=== PATIENT | male | born 1940 | race Caucasian/White ===

== ENCOUNTER 2016-10-27 10:19 | Observation (INO) | payer MEDICARE ==
[~2016-10-27] VITALS: Ht 167.6 cm; Wt 83.2 kg
[~2016-10-27 10:19] MED LIST: ASPI81TAEC PO; CLOP75TA2 PO; CYAN1000VL IM; LEVA500T PO; LISI-538 PO; METF1000 PO; PRED10TA PO; VITA100066 PO; ZOCO40TA PO
--- NOTE | 2016-10-27 11:22 | REP ---
Clinical: Trauma. Findings: Age-related atrophy and microvascular ischemic changes are appreciated. The ventricles and sulci are symmetric. Fish-white differentiation is maintained. There is no evidence for acute intracranial hemorrhage, mass/mass effect, pathology or infarction. No extra-axial fluid collection. Calvarium is intact. Paranasal sinuses and mastoid air cells are clear. Impression: Age related atrophy and microvascular ischemic changes. No acute intracranial hemorrhage, infarction, or mass/mass effect. Signed by Juno Lopez MD 10/27/2016 11:13 A
--- NOTE | 2016-10-27 11:24 | REP ---
Clinical: Trauma. Technique: Axial noncontrast images from the skull base to the thoracic inlet with coronal and sagittal re-formations. Findings: Advanced multilevel degenerative disc osteophyte complexes are noted including bridging osteophytes at the C3-4, C5-6, and to a lesser extent the C4-5 levels as well as disc space narrowing most notably involving the C5-6 level. Hypertrophic facet changes are also identified. Alignment is maintained. There is no evidence for acute fracture / compression injury or subluxation. Spinal canal, posterior elements and spinous processes appear patent and intact respectively. Paravertebral soft tissues are unremarkable. Impression: Advanced multilevel degenerative disc osteophyte complexes. No evidence for acute fracture / compression injury or subluxation. Signed by Juno Lopez MD 10/27/2016 11:15 A
[2016-10-27 12:21] LABS: BASO % 0.3 % (0.0-1.0); EOS % 0.5 % (0.0-3.0); LARGE UNSTAINED CELL # 0.2 K/mm3 (0.0-0.4); LARGE UNSTAINED CELL % 1.6 % (0.0-4.0); LYMPH # 1.2 K/mm3 (1.5-4.5); MEAN CORPUSCULAR HEMOGLOBIN 31.3 pg (27.0-33.0); MONO # 0.5 K/mm3 (0.0-0.8); MONO % 4.8 % (0.0-5.0); NEUTROPHILS # 8.5 K/mm3 (1.8-7.7); NEUTROPHILS % 81.8 % (36.0-66.0); PLATELET COUNT, AUTOMATED 348 k/mm3 (150-450); RED CELL DISTRIBUTION WIDTH 12.8 % (11.5-14.5); WHITE BLOOD COUNT 10.4 K/mm3 (4.0-10.0)
[2016-10-27 12:33] LABS: ANION GAP 6 MEQ/L (8-16); BLOOD UREA NITROGEN 19 MG/DL (7-18); CALCIUM LEVEL 9.1 MG/DL (8.8-10.2); CARBON DIOXIDE LEVEL 27 MEQ/L (21-32); CHLORIDE LEVEL 101 MEQ/L (98-107); CREATININE FOR GFR 1.31 MG/DL (0.70-1.30); FREE T4 1.03 NG/DL (0.76-1.46); GLOMERULAR FILTRATION RATE 56.3 (>42); GLUCOSE, FASTING 144 MG/DL (83-110); POTASSIUM SERUM 4.6 MEQ/L (3.5-5.1); SODIUM LEVEL 134 MEQ/L (136-145)
[2016-10-27] MEDS ORDERED: LIDOCAINE 2% W/EPIN INJ 20ML **PRES FREE As Ordered ONE (12:35)
--- NOTE | 2016-10-27 12:36 | REP ---
AP Portable sitting chest radiograph 10/27/2016 Indication: Syncope Comparison PA and lateral chest 02/06/2016 and 12/23/2015 Findings: The cardiac silhouette is of normal size. There is ectasia and tortuosity of the thoracic aorta. There is pulmonary vascular congestion. Small amount of bibasilar atelectasis is noted. Bones and soft tissues within normal limits. Impression: Normal cardiac silhouette. Tortuosity and ectasia of thoracic aorta. Pulmonary venous hypertension. Mild bibasilar atelectatic changes and/or scarring. Signed by Clemencia Whitfield MD 10/27/2016 12:28 P
[2016-10-27] MEDS ORDERED: LISI-538 PO (13:05)
[2016-10-27] MEDS ORDERED: VITA10002 PO (13:05)
[2016-10-27] MEDS ORDERED: SYST1SOL OU ×2 (13:05)
[2016-10-27] MEDS ORDERED: ONDANSETRON 4MG/2ML VIAL (J2405) IV PRN (13:15)
[2016-10-27] MEDS ORDERED: BISACODYL 5 MG TAB PO PRN (13:15)
[2016-10-27] MEDS ORDERED: GLUCOSE 4 GM CHEW TABLET PO PRN (13:30)
[2016-10-27] MEDS ORDERED: DEXTROSE 50% 50 ML SYRINGE IV PRN (13:30)
[2016-10-27] MEDS ORDERED: GLUCAGON FOR INJ 1 MG VIAL (J1610) SC PRN (13:30)
[2016-10-27] MEDS ORDERED: ACETAMINOPHEN TAB 650MG DOSE (2X325MG) PO PRN (14:45)
[2016-10-27] MEDS ORDERED: LABETALOL HCL 100 MG/20 ML VIAL As Ordered ONE (14:48)
[2016-10-27] MEDS ORDERED: amLODIPine 5 MG TAB As Ordered ONE (14:49)
[2016-10-27] MEDS ORDERED: ACETAMINOPHEN TAB 650MG DOSE (2X325MG) PO ONE (15:30)
--- NOTE | 2016-10-27 16:42 | HPE ---
DATE OF ADMISSION: 10/27/2015 PRIMARY CARE PROVIDER: KRISTI Mccartney INPATIENT HOSPITALIST ATTENDING: Dr. 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 He parked his truck in the driveway. He went to the garage and then to the front door with no answer. As he coming down the steps in the front door, in the walkway, he saw some slush and slipped, fell backwards hitting the back of his head with loss of consciousness. He does not recall how long he was unconscious. He woke up spontaneously. He had no confusion. This was an unwitnessed fall. He then got up and drove himself to the hospital. He felt severe pain at the back of the head and gushing blood. The patient had had no prior episode of falls. Denies any chest pain, pressure or tightness, palpitations, lightheadedness, fever, chills, cough, nausea, vomiting , abdominal pain, diarrhea, constipation, bright red blood per rectum, melena, upper or lower extremity weakness, changes in appetite, changes in vision, cough or cold symptoms, paroxysmal nocturnal dyspnea (PND), orthopnea, lower extremity edema prior to the fall. In the emergency room (ER), he was found to have a laceration at the back of the head which received stitches from Dr. Indio Fish emergency room physician who had seen him. CT of the head was unremarkable for any hemorrhage. CT of the cervical spine was unremarkable for acute fractures or dislocation, compression injury or subluxation. The patient's presenting blood pressure was 210/99 due to severe pain status post head trauma. Without intervention, it has subsided to 173/84. He did receive morphine in the emergency room for pain control. Hospitalist service was called for admission for observation for a syncopal episode status post head trauma. The patient's EKG was sinus rhythm. Glucose was 144 in the ER. Troponin was negative. PAST MEDICAL HISTORY: 1. Diabetes. 2. Hypercholesterolemia. 3. Hypertension. 4. Vertigo. 5. Peripheral arterial disease with right leg stents placed at [facility] in 2014. PAST SURGICAL HISTORY: Three stents placed in the right leg. ALLERGIES: No known drug allergies. 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 Former smoker of tobacco, quit 15 years ago, smoked two packs a day. No alcohol use. He lives alone. He walks unassisted. FAMILY HISTORY: Father with throat cancer at the age of 62. Mother at 78 with diabetes. PHYSICAL EXAMINATION: VITAL SIGNS: Blood pressure 173/84, pulse 92, respiratory rate 16, temperature 97.9, 96% on room air. Weight 81.6 kg, 5 feet, 6 inches tall. GENERAL: The patient is awake, alert, and oriented times three. He has a bandage around his head status post stitches to the back of the head. HEENT: Pupils are equally round and reactive to light and accommodation. Extraocular muscles are intact. Normocephalic. No sinus tenderness. No pharyngeal erythema. No cervical lymphadenopathy or thyromegaly. Moist mucous membranes. LUNGS: Clear to auscultation. No wheezing, rales, or rhonchi. Normal I:E ratio. Symmetric lungs. No kyphosis or scoliosis. HEART: S1, S2 sinus tachycardia. No murmurs, rubs, or gallops. ABDOMEN: Obese, soft, nontender, nondistended. Positive bowel sounds time four quadrants. No hepatosplenomegaly, rebound, guarding. EXTREMITIES: Skin pink, warm and dry. No pitting edema. NEUROLOGIC: Cranial nerves intact. GCS of 15. EKG: Sinus rhythm, ventricular rate of 81, CT interval 150 milliseconds, QRS of 82, QT 340, QTc 378 milliseconds. LABORATORY DATA: White count 10.4, hemoglobin 14, hematocrit 43, platelets 348, 81% neutrophils. Sodium 134, potassium 4.6, chloride 27, bicarbonate 27, BUN 19, creatinine 1.3, glucose 144, calcium 9.1, total CK 67, MB fraction 2.3, troponin less than 0.02, TSH 2.1. MICROBIOLOGY: None. IMAGING STUDIES: CT of the head shows age related atrophy, microvascular ischemic changes, no acute intracranial hemorrhage, infarct or mass, mass effect. CT of the cervical spine shows advanced multilevel degenerative disc osteophyte complexes. No evidence of acute fracture, compression injury, or subluxation. Chest x-ray on 10/27/2016 shows normal cardiac silhouette, tortuosity and ectasia of thoracic aorta, mild bibasilar atelectasis and/or scarring, pulmonary venous hypertension. 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 The patient denies any prodromal symptoms of chest pain, pressure or tightness, palpitations, lightheadedness, changes in vision, upper or lower extremity weakness prior to the episode and has had no similar episode in the past. He presents to the emergency room with a gushing wound on the back of the head requiring stitches. Hospitalist service was called for admission for acute kidney injury with a creatinine of 1.3 as well as pain control and evaluation of the patient's syncopal episode status post a fall. The patient will be admitted for observation to the hospitalist service and will be assigned to Dr. Mariusz Emery at 10:00 p.m. on 10/27/2016. Dr. Emery will assume care of this patient on 10/28/2016 at 7:00 a.m. 1. Syncopal episode secondary to mechanical fall with head trauma, with laceration to the back of the head requiring stitches provided by Dr. Indio Fish emergency room physician. The patient will be admitted to telemetry and progressive care unit (PCU) to monitor for any arrhythmias. His EKG is currently sinus rhythm without prolongation of QT interval. As part of the evaluation, he will be evaluated with an echocardiogram to rule out valvular disease or left ventricular obstruction which could cause syncopal episodes despite having no murmurs on examination. Orthostatics will be checked and his lisinopril will be held due to acute kidney injury. IV fluids will be provided at 75 mL per hour to be held for respiratory distress. Physical therapy prior to discharge. 2. Scalp laceration status post stitches by the emergency room physician. The patient will need the sutures to be removed by his primary care physician as outpatient after discharge. 3. Type 2 diabetes. Due to acute kidney injury, his metformin will be held. We will check A1c, place him on a consistent-carbohydrate diet and sliding scale with coverage. We will hold his aspirin for now due to recent head trauma and bleeding with a scalp laceration to prevent further bleeding. 4. Hypertension, uncontrolled. Lisinopril will be held due to acute kidney injury. We will provide him with Lopressor every six hours with holding parameters for systolic pressure less than 150 or diastolic less than 90. 5. Hypercholesterolemia. Continue on simvastatin. Check a fasting lipid profile in the morning. 6. Chronic vertigo. The patient has had no symptoms prior to the episode. We will obtain physical therapy consultation prior to discharge. 7. Peripheral vascular disease with history of three stents placed on the right lower extremity. He is stable. We will continue for simvastatin for now and hold off on the aspirin due to recent bleed from the scalp laceration. 8. Former smoker. Quit 15 years ago. 9. Deep vein thrombosis (DVT) prophylaxis with compression stocking. 10. Diet with consistent-carbohydrate, no-added salt. The patient will be assigned to Dr. Mariusz Emery at 10:00 p.m. on 10/27/2016. He will assume care of this patient at 7:00 a.m. on 08/28/2017, hospitalist service. VANI
[2016-10-27] MEDS ORDERED: HumaLOG INSULIN (NovoLOG) PER UNIT As Ordered ONE (17:45)
[2016-10-27 17:50] VITALS: BP 142/60
[2016-10-27] MEDS: NS 1,000 ML IV SCH (17:55)
[2016-10-27] MEDS: CYANOCOBALAMIN 500 MCG TAB PO SCH (17:55)
[2016-10-27] MEDS: METOPROLOL TART 25 MG TABLET PO SCH (17:56)
[2016-10-27] MEDS: HumaLOG INSULIN (NovoLOG) PER UNIT SC SCH ×2 (17:56→20:10)
[2016-10-27] MEDS ORDERED: ACETAMINOPHEN TAB 650MG DOSE (2X325MG) As Ordered ONE (18:09)
--- NOTE | 2016-10-27 18:10 | ECGEPIP ---
Stationary ECG Study [facility] - ED Test Date: 2016-10-27 Pat Name: CODIE SANCHEZ Department: Room: - Gender: M [employer]: : [id number] Requested By: Indio Ortiz Order Number: [id number] Reading MD: Magdalene Zuñiga Measurements Intervals [place] Rate: 81 P: 62 PA: 150 QRS: 54 QRSD: 82 T: 23 QT: 340 QTc: 397 Interpretive Statements SINUS RHYTHM NSTTW ABNORMALITY DECREASED RATE 12/23/15 Electronically Signed On 10-27-2016 18:09:38 EST by Magdalene Zuñiga
[2016-10-27 20:00] VITALS: BP 142/60
[2016-10-27 20:09] VITALS: BP 133/64
[2016-10-27] MEDS: SIMVASTATIN 40 MG TAB PO SCH (20:10)
[2016-10-27] MEDS: VITAMIN D 1,000 INTERNATIONAL UNITS TABLET PO SCH (20:10)
[2016-10-28] VITALS: BP 165/59
[2016-10-28] MEDS ORDERED: METOPROLOL TART 25 MG TABLET As Ordered ONE (00:18)
[2016-10-28] MEDS: METOPROLOL TART 25 MG TABLET PO SCH ×4 (00:39→17:51)
[2016-10-28] MEDS ORDERED: ACETAMINOPHEN TAB 650MG DOSE (2X325MG) As Ordered ONE (00:41)
[2016-10-28] MEDS: ACETAMINOPHEN TAB 650MG DOSE (2X325MG) PO PRN ×2 (00:43→13:19)
[2016-10-28 04:00] VITALS: BP 147/60
--- NOTE | 2016-10-28 04:01 | EDDOCDS ---
Nurse's Notes [facility] Name: Codie Aguirre Age: 76 yrs Sex: Male : 1940 Arrival Date: 10/27/2016 Time: 10:19 Bed Admit Hold Private MD: Matthew Muse R. Diagnosis: Syncope and collapse;Fall (on) (from) other stairs and steps;Laceration of muscle and tendon of head Presentation: 10/27 10:24 Presenting complaint: Patient states: Fell outside with LOC laceration to scalp, does mlb1 not recall falling. This patient has no additional risk factors. Mechanism of Injury: resulted from a fall. Adult Sepsis Screening: The patient does not have new or worsening altered mentation. Patient's respiratory rate is less than 22. Systolic blood pressure is greater than 100. Patient has a qSOFA score of 0- Negative Sepsis Screen. Suicide/Homicide risk assessment- the patient denies having any suicidal and/or homicidal ideations and does not present with any other emotional, behavioral or mental health complaints. Status: Patient is not a marketing services vice president or dependent. Transition of care: patient was not received from another setting of care. 10:24 Acuity: JERRADO Level 3 mlb1 10:24 Method Of Arrival: Walkin/Carried/Asstd mlb1 Triage Assessment: 10:26 General: Appears in no apparent distress, Behavior is appropriate for age, cooperative. mlb1 Pain: Denies pain. Neurological: Level of Consciousness is awake, alert, Oriented to person, place, time. Historical: - Allergies: no known allergies; - Home Meds: 1. metformin 1,000 mg Oral tab 1 tab 2 times per day 2. lisinopril 20 mg Oral tab 1 tab once daily 3. aspirin 81 mg Oral TbEC 1 tab once daily 4. simvastatin 40 mg Oral tab 1 tab once daily 5. vit B injection monthly 6. Vitamin D Oral 1000 unit daily - PMHx: Diabetes - NIDDM: controlled; Hypercholesterolemia; Hypertension; Vertigo; - PSHx: 3 stents placed in right leg; - Social history: Smoking status: Patient states former smoker of tobacco. No barriers to communication noted, The patient speaks fluent Tajik, Speaks appropriately for age. - : The pt / caregiver states he / she is not on anticoagulants. Home medication list is obtained from the patient. - Exposure Risk Screening:: None identified. Assessment: 10:55 Adult Sepsis Screening: The patient does not have new or worsening altered mentation. dsf Patient's respiratory rate is less than 22. Systolic blood pressure is greater than 100. Patient has a qSOFA score of 0- Negative Sepsis Screen. General: Appears in no apparent distress, comfortable, Behavior is appropriate for age, cooperative. Pain: Location: back of head Pain currently is 3 out of 10 on a pain scale. Quality of pain is described as aching, dull. Neurological: Level of Consciousness is awake, alert, Oriented to person, place, time, Reports no additional symptoms. Cardiovascular: Capillary refill < 3 seconds Heart tones S1 S2 present Rhythm is sinus rhythm No ectopy. Respiratory: Airway is patent Respiratory effort is even, unlabored, Respiratory pattern is regular, symmetrical, Breath sounds are clear bilaterally. GI: Abdomen is non- distended Bowel sounds present X 4 quads. Abd is soft and non tender X 4 quads. Derm: Skin is pink, warm & dry. 11:55 General: Appears in no apparent distress, Behavior is appropriate for age, cooperative. dsf Pain: Location: back of head Pain currently is 3 out of 10 on a pain scale. Neurological: Level of Consciousness is awake, alert. Cardiovascular: Capillary refill < 3 seconds Rhythm is sinus rhythm No ectopy. Respiratory: Airway is patent Respiratory effort is even, unlabored, Respiratory pattern is regular, symmetrical. Derm: Skin is pink, warm & dry. 12:34 General: Appears in no apparent distress, comfortable, Behavior is appropriate for age, dsf cooperative. Neurological: Level of Consciousness is awake, alert. Cardiovascular: Capillary refill < 3 seconds Rhythm is sinus rhythm No ectopy. Respiratory: Airway is patent Respiratory effort is even, unlabored, Respiratory pattern is regular, symmetrical. Derm: Skin is pink, warm & dry. 13:34 Adult Sepsis Screening: The patient does not have new or worsening altered mentation. dsf Patient's respiratory rate is less than 22. Systolic blood pressure is greater than 100. Patient has a qSOFA score of 0- Negative Sepsis Screen. General: Appears in no apparent distress, Behavior is appropriate for age, cooperative. Pain: Location: back of head Pain currently is 3 out of 10 on a pain scale. Neurological: Level of Consciousness is awake, alert, Oriented to person, place, time. Cardiovascular: Capillary refill < 3 seconds Rhythm is sinus rhythm No ectopy. Respiratory: Airway is patent Respiratory effort is even, unlabored, Respiratory pattern is regular, symmetrical. Derm: Skin is pink, warm & dry. 14:34 General: Appears in no apparent distress, comfortable, Behavior is appropriate for age, dsf cooperative. Pain: Location: back of head Pain currently is 3 out of 10 on a pain scale. Neurological: Level of Consciousness is awake, alert, Oriented to person, place, time. Cardiovascular: Capillary refill < 3 seconds Heart tones S1 S2 present Rhythm is sinus rhythm No ectopy. Respiratory: Airway is patent Respiratory effort is even, unlabored, Respiratory pattern is regular, symmetrical, Breath sounds are clear bilaterally. GI: Abdomen is non- distended Bowel sounds present X 4 quads. Abd is soft and non tender X 4 quads. Derm: Skin is pink, warm & dry. pressure dressing to back of head with tiffany bandage. 15:34 General: Appears in no apparent distress, Behavior is appropriate for age, cooperative. dsf Neurological: Level of Consciousness is awake, alert. Cardiovascular: Capillary refill < 3 seconds Rhythm is sinus rhythm No ectopy. Respiratory: Airway is patent Respiratory effort is even, unlabored, Respiratory pattern is regular, symmetrical. Derm: Skin is pink, warm & dry. 16:36 Adult Sepsis Screening: The patient does not have new or worsening altered mentation. dsf Patient's respiratory rate is less than 22. Systolic blood pressure is greater than 100. Patient has a qSOFA score of 0- Negative Sepsis Screen. General: Appears in no apparent distress, comfortable, Behavior is appropriate for age, cooperative. Pain: Location: back of head Pain currently is 3 out of 10 on a pain scale. Neurological: Level of Consciousness is awake, alert. Cardiovascular: Capillary refill < 3 seconds Rhythm is sinus rhythm No ectopy. Respiratory: Airway is patent Respiratory effort is even, unlabored, Respiratory pattern is regular, symmetrical. GI: Abdomen is non- distended. Derm: Skin is pink, warm & dry. Vital Signs: 10:21 BP 210 / 99; Pulse 111; Resp 16; Temp 97.9(O); Pulse Ox 96% ; Weight 81.65 kg; Height 5 cmb ft. 6 in. (167.64 cm); Pain 0/10; 10:47 BP 174 / 70 LA (man/); mlb1 10:50 BP 173 / 84 (auto/); dsf 10:53 Pulse 92 MON; Pulse Ox 96% ; dsf 10:55 Pulse 92 MON; Pulse Ox 95% ; dsf 11:05 BP 198 / 91 (auto/); dsf 11:07 Pulse 90 MON; Pulse Ox 95% ; dsf 11:18 BP 180 / 79 (auto/); dsf 11:18 Pulse 84 MON; Pulse Ox 93% ; dsf 11:20 BP 175 / 82 (auto/); dsf 11:21 Pulse 82 MON; Pulse Ox 93% ; dsf 11:35 BP 176 / 82 (auto/); dsf 11:36 Pulse 82 MON; Pulse Ox 92% ; dsf 11:50 BP 195 / 88 (auto/); dsf 11:50 Pulse 82 MON; Pulse Ox 94% ; dsf 11:59 Pulse 80 MON; dsf 11:59 BP 173 / 81 (auto/); dsf 12:00 Pulse 82 MON; dsf 12:00 BP 171 / 81 (auto/); dsf 12:00 BP 167 / 80 (auto/); dsf 12:04 Pulse 84 MON; dsf 12:05 BP 175 / 83 (auto/); dsf 12:06 BP 173 / 81 Supine; Pulse 82; dsf 12:06 BP 171 / 81 Sitting; Pulse 82; dsf 12:06 BP 167 / 80 Standing; Pulse 92; dsf 12:19 Pulse 84 MON; dsf 12:20 BP 172 / 82 (auto/); dsf 12:35 BP 171 / 79 (auto/); dsf 12:35 Pulse 88 MON; Pulse Ox 96% ; dsf 12:50 Pulse 86 MON; Pulse Ox 97% ; dsf 12:50 BP 168 / 78 (auto/); dsf 13:05 BP 156 / 67 (auto/); dsf 13:05 Pulse 82 MON; Pulse Ox 97% ; dsf 13:20 BP 182 / 106 (auto/); dsf 13:20 Pulse 86 MON; Pulse Ox 97% ; dsf 13:34 Pulse 82 MON; Pulse Ox 97% ; dsf 13:35 BP 168 / 79 (auto/); dsf 13:50 BP 163 / 77 (auto/); dsf 13:50 Pulse 80 MON; Pulse Ox 96% ; dsf 14:05 BP 172 / 78 (auto/); dsf 14:05 Pulse 88 MON; Pulse Ox 96% ; dsf 14:20 BP 169 / 84 (auto/); dsf 14:20 Pulse 84 MON; Pulse Ox 96% ; dsf 14:35 Pulse 78 MON; Pulse Ox 97% ; dsf 14:35 BP 169 / 77 (auto/); Resp 20; Temp 97.6(TE); Pain 3/10; dsf 14:46 BP 172 / 83 (auto/); dsf 14:46 Pulse 78 MON; Pulse Ox 96% ; dsf 14:50 BP 168 / 75 (auto/); dsf 14:50 Pulse 76 MON; Pulse Ox 96% ; dsf 15:05 BP 159 / 79 (auto/); dsf 15:05 Pulse 74 MON; Pulse Ox 94% ; dsf 15:20 BP 144 / 72 (auto/); dsf 15:20 Pulse 74 MON; Pulse Ox 94% ; dsf 15:35 BP 143 / 67 (auto/); dsf 15:35 Pulse 74 MON; Pulse Ox 96% ; dsf 15:50 Pulse 74 MON; Pulse Ox 95% ; mcp 15:50 BP 152 / 76 (auto/); mcp 16:05 BP 162 / 78 (auto/); mcp 16:05 Pulse 76 MON; Pulse Ox 96% ; mcp 16:20 BP 146 / 67 (auto/); mcp 16:20 Pulse 74 MON; Pulse Ox 96% ; mcp 16:35 BP 132 / 66 (auto/); mcp 16:35 Pulse 72 MON; Pulse Ox 96% ; mcp 16:50 BP 140 / 68 (auto/); mcp 16:50 Pulse 68 MON; Pulse Ox 95% ; mcp 17:05 BP 135 / 65 (auto/); mcp 17:05 Pulse 70 MON; Pulse Ox 96% ; mcp 17:20 BP 138 / 68 (auto/); mcp 17:20 Pulse 72 MON; Pulse Ox 95% ; mcp 10:21 Body Mass Index 29.05 (81.65 kg, 167.64 cm) cmb Vitals: 10:21 Log In Time: October 27, 2016 at 10:19. cmb Fernandez Coma Score: 10:24 Eye Response: spontaneous(4). Verbal Response: oriented(5). Motor Response: obeys mlb1 commands(6). Total: 15. ED Course: 10:21 Patient visited by Stacie Morgan. cmb 10:21 Matthew Muse is Private Physician. cmb 10:21 Patient moved to Waiting cmb 10:23 Patient moved to Pre RCE cmb 10:24 Patient visited by Chriss Bardales, VIKI. mlb1 10:25 Triage Initiated mlb1 10:27 Patient visited by Chriss Bardales RN. mlb1 10:29 Patient moved to Triage 2 mlb1 10:47 Patient moved to 10 mlb1 10:57 Patient visited by Caitlyn Abbott RN. dsf 10:57 The patient / caregiver is instructed regarding the plan of care and ED course. Patient dsf has correct armband on for positive identification. Placed in gown. Bed in low position. Call light in reach. Side rails up X2. monitoring engineer on. Pulse ox on. NIBP on. 10:[address] dsf 11:18 Patient name changed from Codie\S\\S\Aguirre\S\ to Codie\S\ \S\Aguirre. EDMS 11:19 [facility] [place] was scanned into [employer] and attached to record. lg 11:24 Patient moved to 10 dsf 11:25 CT Head Without Contrast Returned. EDMS 11:25 CT Spine,Cervical W/o Contrast Returned. EDMS 11:32 Patient visited by Rosa Maria Barrett PCA. jlf 11:39 Indio Ortiz MD is Attending Physician. ml 11:39 Patient visited by Indio Ortiz MD. ml 12:03 Patient visited by Rosa Maria Barrett PCA. jlf 12:03 Patient visited by Rosa Maria Barrett PCA. jlf 12:03 EKG done. (by ED staff). Reviewed by Indio Ortiz MD. jlf 12:04 TSH with Free T4 Sent. dsf 12:04 Troponin Sent. dsf 12:04 CIP Sent. dsf 12:04 MED Profile Sent. dsf 12:04 CBC with Diff Sent. dsf 12:04 Inserted saline lock: 20 gauge in right antecubital area The patient tolerated the dsf procedure well. 12:07 Patient visited by Caitlyn Abbott RN. dsf 12:34 Patient visited by Caitlyn Abbott RN. dsf 12:52 Zhanna Burnette is Hospitalizing Provider. ml 13:15 Chest, 1 View Returned. EDMS 15:38 Written Provider Order was scanned into [employer] and attached to record. lbd 15:51 Patient visited by Caitlyn Abbott RN. dsf 16:37 Patient visited by Caitlyn Abbott RN. dsf 17:17 Patient moved to Admit Hold mcp 17:32 Patient moved to 19 dsf 19:00 Patient moved to Admit Hold ml3 19:13 EKG-ADULT Returned. EDMS Administered Medications: 12:43 Drug: Lidocaine-Epinephrine 2 %-1:100,000 10 ml {Note: administered by Dr. Fish .} dsf Route: Infiltration; 14:54 Drug: amLODIPine 10 mg [amlodipine 5 mg tablet (2 tabs)] Route: PO; dsf 14:54 Drug: Labetalol 10 mg [labetalol 5 mg/mL intravenous solution (2 mL)] Route: IVP; Rate: dsf bolus; Infused Over: 2 mins; Site: right antecubital; Order Results: Lab Order: CBC with Diff; SPEC'M 10/27/16 11:58 Test: WHITE BLOOD COUNT; Value: 10.4; Range: 4.0-10.0; Abnormal: Above high normal; Units: K/mm3; Status: F Test: RED BLOOD COUNT; Value: 4.72; Range: 4.30-6.10; Units: M/mm3; Status: F Test: HEMOGLOBIN; Value: 14.8; Range: 14.0-18.0; Units: g/dl; Status: F Test: HEMATOCRIT; Value: 43.4; Range: 42.0-52.0; Units: %; Status: F Test: MEAN CORPUSCULAR VOLUME; Value: 92.0; Range: 80.0-96.0; Units: fl; Status: F Test: MEAN CORPUSCULAR HEMOGLOBIN; Value: 31.3; Range: 27.0-33.0; Units: pg; Status: F Test: MEAN CORPUSCULAR HGB CONC; Value: 34.0; Range: 32.0-36.5; Units: g/dl; Status: F Test: RED CELL DISTRIBUTION WIDTH; Value: 12.8; Range: 11.5-14.5; Units: %; Status: F Test: PLATELET COUNT, AUTOMATED; Value: 348; Range: 150-450; Units: k/mm3; Status: F Test: NEUTROPHILS %; Value: 81.8; Range: 36.0-66.0; Abnormal: Above high normal; Units: %; Status: F Test: LYMPH %; Value: 11.0; Range: 24.0-44.0; Abnormal: Below low normal; Units: %; Status: F Test: MONO %; Value: 4.8; Range: 0.0-5.0; Units: %; Status: F Test: EOS %; Value: 0.5; Range: 0.0-3.0; Units: %; Status: F Test: BASO %; Value: 0.3; Range: 0.0-1.0; Units: %; Status: F Test: LARGE UNSTAINED CELL %; Value: 1.6; Range: 0.0-4.0; Units: %; Status: F Test: NEUTROPHILS #; Value: 8.5; Range: 1.8-7.7; Abnormal: Above high normal; Units: K/mm3; Status: F Test: LYMPH #; Value: 1.2; Range: 1.5-4.5; Abnormal: Below low normal; Units: K/mm3; Status: F Test: MONO #; Value: 0.5; Range: 0.0-0.8; Units: K/mm3; Status: F Test: EOS #; Value: 0.0; Range: 0.0-0.50; Units: K/mm3; Status: F Test: BASO #; Value: 0.0; Range: 0.0-0.2; Units: K/mm3; Status: F Test: LARGE UNSTAINED CELL #; Value: 0.2; Range: 0.0-0.4; Units: K/mm3; Status: F Lab Order: MED Profile; SPEC'M 10/27/16 11:58 Test: GLUCOSE, FASTING; Value: 144; Range: 83-110; Abnormal: Above high normal; Units: MG/DL; Status: F Test: BLOOD UREA NITROGEN; Value: 19; Range: 7-18; Abnormal: Above high normal; Units: MG/DL; Status: F Test: CREATININE FOR GFR; Value: 1.31; Range: 0.70-1.30; Abnormal: Above high normal; Units: MG/DL; Status: F Test: GLOMERULAR FILTRATION RATE; Value: 56.3; Range: >42; Status: F Test: SODIUM LEVEL; Value: 134; Range: 136-145; Abnormal: Below low normal; Units: MEQ/L; Status: F Test: POTASSIUM SERUM; Value: 4.6; Range: 3.5-5.1; Units: MEQ/L; Status: F Test: CHLORIDE LEVEL; Value: 101; Range: 98-107; Units: MEQ/L; Status: F Test: CARBON DIOXIDE LEVEL; Value: 27; Range: 21-32; Units: MEQ/L; Status: F Test: ANION GAP; Value: 6; Range: 8-16; Abnormal: Below low normal; Units: MEQ/L; Status: F Test: CALCIUM LEVEL; Value: 9.1; Range: 8.8-10.2; Units: MG/DL; Status: F Test Note: ; Units are mL/min/1.73 m2 Chronic Kidney Disease Staging per NKF: Stage I & II GFR >=60 Normal to Mildly Decreased Stage III GFR 30-59 Moderately Decreased Stage IV GFR 15-29 Severely Decreased Stage V GFR <15 Very Little GFR Left ESRD GFR <15 on OLIVE PACKER Lab Order: CIP; SPEC'10/27/16 11:58 Test: CPK CREATINE PHOSPHOKINASE; Value: 67; Range: 39-308; Units: U/L; Status: F Test: CK-MB VALUE MASS; Value: 2.3; Range: 0.0-3.6; Units: NG/ML; Status: F Test: MB/CK RELATIVE INDEX; Value: 3.43; Range: < OR =4; Status: F Test Note: ; DIAGNOSIS CRITERIA MMB ng/ml Relative Index (RI) NON-AMI < or = 5 N/A FISH ZONE > 5 < or = 4 AMI > 5 > 4 Lab Order: Troponin; SPEC'M 10/27/16 11:58 Test: TROPONIN I; Value: < 0.02; Range: < 0.10; Units: NG/ML; Status: F Test Note: ; Troponin I Reference Interval for [employer] [place] LOCI: 99th Percentile= 0.00-0.045 ng/ml Risk Stratification: <= 0.10 ng/ml Decreased Risk for Adverse Clinical Events. 0.10-1.50 ng/ml Increased Risk for Adverse Clinical Events. Evaluation of additional criterion and/or repeat testing in 2-6 hours is suggested to rule out myocardial damage. >= 1.50 ng/ml Indicative of Myocardial Injury. Lab Order: TSH with Free T4; SPEC'M 10/27/16 11:58 Test: THYROID STIMULATING HORMONE; Value: 2.100; Range: 0.358-3.740; Units: uIU/ML; Status: F Test: FREE T4; Value: 1.03; Range: 0.76-1.46; Units: NG/DL; Status: F Lab Order: URINALYSIS; SPEC'M 10/27/16 22:26 Test: APPEARANCE, URINE; Value: CLEAR; Range: CLEAR; Status: F Test: COLOR, URINE; Value: STRAW; Range: YELLOW; Status: F Test: PH,URINE; Value: 6.0; Range: 5.0-9.0; Units: UNITS; Status: F Test: SPECIFIC GRAVITY URINE AUTO; Value: 1.008; Range: 1.002-1.035; Status: F Test: PROTEIN, URINE AUTO; Value: NEGATIVE; Range: NEGATIVE; Units: mg/dL; Status: F Test: GLUCOSE, URINE (UA) AUTO; Value: 2+; Range: NEGATIVE; Abnormal: Above high normal; Units: mg/dL; Status: F Test: KETONE, URINE AUTO; Value: NEGATIVE; Range: NEGATIVE; Units: mg/dL; Status: F Test: UROBILINOGEN, URINE AUTO; Value: 0.2; Range: 0.0-2.0; Units: mg/dL; Status: F Test: BILIRUBIN, URINE AUTO; Value: NEGATIVE; Range: NEGATIVE; Status: F Test: NITRITE, URINE AUTO; Value: NEGATIVE; Range: NEGATIVE; Status: F Test: LEUKOCYTE ESTERASE, URINE AUTO; Value: 1+; Range: NEGATIVE; Abnormal: Above high normal; Status: F Test: BLOOD, URINE BLOOD; Value: NEGATIVE; Range: NEGATIVE; Status: F Test: WBC, URINE AUTO; Value: 3; Range: 0-3; Units: /HPF; Status: F Test: RBC, URINE AUTO; Value: 2; Range: 0-3; Units: /HPF; Status: F Test: BACTERIA, URINE AUTO; Value: NEGATIVE; Range: NEGATIVE; Status: F Test: SQUAMOUS EPITHELIAL CELL UR AU; Value: 0; Range: 0-6; Units: /HPF; Status: F Test: MUCUS, URINE; Value: SMALL; Range: NEGATIVE; Status: F Test: HYALINE CAST, URINE AUTO; Value: 0; Range: 0-1; Units: /LPF; Status: F Radiology Order: CT Head Without Contrast Test: CT Head Without Contrast REASON FOR EXAMINATION: Trauma; Clinical: Trauma.; ; Findings:; Age-related atrophy and microvascular ischemic changes are appreciated. The; ventricles and sulci are symmetric. Fish-white differentiation is maintained.; There is no evidence for acute intracranial hemorrhage, mass/mass effect,; pathology or infarction. No extra-axial fluid collection. Calvarium is intact.; Paranasal sinuses and mastoid air cells are clear.; ; Impression:; Age related atrophy and microvascular ischemic changes.; No acute intracranial hemorrhage, infarction, or mass/mass effect.; ; ; Signed by; Juno Lopez MD 10/27/2016 11:13 A; Radiology Order: CT Spine,Cervical W/o Contrast Test: CT Spine,Cervical W/o Contrast REASON FOR EXAMINATION: Trauma; Clinical: Trauma.; ; Technique: Axial noncontrast images from the skull base to the thoracic inlet; with coronal and sagittal re-formations.; ; Findings:; Advanced multilevel degenerative disc osteophyte complexes are noted including; bridging osteophytes at the C3-4, C5-6, and to a lesser extent the C4-5 levels as; well as disc space narrowing most notably involving the C5-6 level. Hypertrophic; facet changes are also identified. Alignment is maintained. There is no; evidence for acute fracture / compression injury or subluxation. 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 Consultant: uday; : 1940 Requested By: Indio Ortiz; Order Number: [id number] Reading MD: Magdalene Zuñiga; Measurements; Intervals Arnold; Rate: 81 P: 62; WA: 150 QRS: 54; QRSD: 82 T: 23; QT: 340; QTc: 397; Interpretive Statements; SINUS RHYTHM; NSTTW ABNORMALITY; DECREASED RATE 12/23/15; Electronically Signed On 10-27-2016 18:09:38 EST by Magdalene Zuñiga; Radiology Order: Chest, 1 View Test: Chest, 1 View REASON FOR EXAMINATION: Syncope; AP Portable sitting chest radiograph 10/27/2016; ; Indication: Syncope; ; Comparison PA and lateral chest 02/06/2016 and 12/23/2015; ; Findings: The cardiac silhouette is of normal size. There is ectasia and; tortuosity of the thoracic aorta. There is pulmonary vascular congestion. Small; amount of bibasilar atelectasis is noted.; ; Bones and soft tissues within normal limits.; ; Impression:; ; Normal cardiac silhouette. Tortuosity and ectasia of thoracic aorta.; ; Pulmonary venous hypertension. Mild bibasilar atelectatic changes and/or; scarring.; ; ; Signed by; Clemencia Whitfield MD 10/27/2016 12:28 P; Outcome: 12:53 Decision to Hospitalize by Provider. 10/28 03:59 Patient left the ED. cz Signatures: Dispatcher [employer] EDMS Indio Ortiz MD MD ml Daly, Linda, Ager Operator Unit Cinthia Arambula, RN Evaristo Saeed mcp, RN RN cz Ganter, LoriLee, Reg Reg lg Barney, Michael B RN RN mlb1 Heather Bell, Ager Operator Unit ml3 Caitlyn AbbottRN RN Stacie Hdz Jordain, PCA [facility] MTD[facility]
--- NOTE | 2016-10-28 04:01 | EDDOCDS ---
Physician Documentation [facility] Name: Brian Aguirre Age: 76 yrs Sex: Male : 1940 Arrival Date: 10/27/2016 Time: 10:19 Bed Admit Hold Private MD: Matthew Muse R. Disposition: 10/27 12:53 Critical Care:. ml Disposition: 10/27/16 12:53 Hospitalization ordered by Zhanna Burnette for Inpatient Admission. Preliminary diagnosis are Syncope and collapse, Fall (on) (from) other stairs and steps, Laceration of muscle and tendon of head. - Bed requested for PCU. - Status is Inpatient Admission. cz - Condition is Stable. - Problem is new. - Symptoms are unchanged. Historical: - Allergies: no known allergies; - Home Meds: 1. metformin 1,000 mg Oral tab 1 tab 2 times per day 2. lisinopril 20 mg Oral tab 1 tab once daily 3. aspirin 81 mg Oral TbEC 1 tab once daily 4. simvastatin 40 mg Oral tab 1 tab once daily 5. vit B injection monthly 6. Vitamin D Oral 1000 unit daily - PMHx: Diabetes - NIDDM: controlled; Hypercholesterolemia; Hypertension; Vertigo; - PSHx: 3 stents placed in right leg; - Social history: Smoking status: Patient states former smoker of tobacco. No barriers to communication noted, The patient speaks fluent Telugu, Speaks appropriately for age. - : The pt / caregiver states he / she is not on anticoagulants. Home medication list is obtained from the patient. - Exposure Risk Screening:: None identified. Vital Signs: 10:21 BP 210 / 99; Pulse 111; Resp 16; Temp 97.9(O); Pulse Ox 96% ; Weight 81.65 kg / 180.01 cmb lbs; Height 5 ft. 6 in. (167.64 cm); Pain 0/10; 10:47 BP 174 / 70 LA (man/); mlb1 10:50 BP 173 / 84 (auto/); dsf 10:53 Pulse 92 MON; Pulse Ox 96% ; dsf 10:55 Pulse 92 MON; Pulse Ox 95% ; dsf 11:05 BP 198 / 91 (auto/); dsf 11:07 Pulse 90 MON; Pulse Ox 95% ; dsf 11:18 BP 180 / 79 (auto/); dsf 11:18 Pulse 84 MON; Pulse Ox 93% ; dsf 11:20 BP 175 / 82 (auto/); dsf 11:21 Pulse 82 MON; Pulse Ox 93% ; dsf 11:35 BP 176 / 82 (auto/); dsf 11:36 Pulse 82 MON; Pulse Ox 92% ; dsf 11:50 BP 195 / 88 (auto/); dsf 11:50 Pulse 82 MON; Pulse Ox 94% ; dsf 11:59 Pulse 80 MON; dsf 11:59 BP 173 / 81 (auto/); dsf 12:00 Pulse 82 MON; dsf 12:00 BP 171 / 81 (auto/); dsf 12:00 BP 167 / 80 (auto/); dsf 12:04 Pulse 84 MON; dsf 12:05 BP 175 / 83 (auto/); dsf 12:06 BP 173 / 81 Supine; Pulse 82; dsf 12:06 BP 171 / 81 Sitting; Pulse 82; dsf 12:06 BP 167 / 80 Standing; Pulse 92; dsf 12:19 Pulse 84 MON; dsf 12:20 BP 172 / 82 (auto/); dsf 12:35 BP 171 / 79 (auto/); dsf 12:35 Pulse 88 MON; Pulse Ox 96% ; dsf 12:50 Pulse 86 MON; Pulse Ox 97% ; dsf 12:50 BP 168 / 78 (auto/); dsf 13:05 BP 156 / 67 (auto/); dsf 13:05 Pulse 82 MON; Pulse Ox 97% ; dsf 13:20 BP 182 / 106 (auto/); dsf 13:20 Pulse 86 MON; Pulse Ox 97% ; dsf 13:34 Pulse 82 MON; Pulse Ox 97% ; dsf 13:35 BP 168 / 79 (auto/); dsf 13:50 BP 163 / 77 (auto/); dsf 13:50 Pulse 80 MON; Pulse Ox 96% ; dsf 14:05 BP 172 / 78 (auto/); dsf 14:05 Pulse 88 MON; Pulse Ox 96% ; dsf 14:20 BP 169 / 84 (auto/); dsf 14:20 Pulse 84 MON; Pulse Ox 96% ; dsf 14:35 Pulse 78 MON; Pulse Ox 97% ; dsf 14:35 BP 169 / 77 (auto/); Resp 20; Temp 97.6(TE); Pain 3/10; dsf 14:46 BP 172 / 83 (auto/); dsf 14:46 Pulse 78 MON; Pulse Ox 96% ; dsf 14:50 BP 168 / 75 (auto/); dsf 14:50 Pulse 76 MON; Pulse Ox 96% ; dsf 15:05 BP 159 / 79 (auto/); dsf 15:05 Pulse 74 MON; Pulse Ox 94% ; dsf 15:20 BP 144 / 72 (auto/); dsf 15:20 Pulse 74 MON; Pulse Ox 94% ; dsf 15:35 BP 143 / 67 (auto/); dsf 15:35 Pulse 74 MON; Pulse Ox 96% ; dsf 15:50 Pulse 74 MON; Pulse Ox 95% ; mcp 15:50 BP 152 / 76 (auto/); mcp 16:05 BP 162 / 78 (auto/); mcp 16:05 Pulse 76 MON; Pulse Ox 96% ; mcp 16:20 BP 146 / 67 (auto/); mcp 16:20 Pulse 74 MON; Pulse Ox 96% ; mcp 16:35 BP 132 / 66 (auto/); mcp 16:35 Pulse 72 MON; Pulse Ox 96% ; mcp 16:50 BP 140 / 68 (auto/); mcp 16:50 Pulse 68 MON; Pulse Ox 95% ; mcp 17:05 BP 135 / 65 (auto/); mcp 17:05 Pulse 70 MON; Pulse Ox 96% ; mcp 17:20 BP 138 / 68 (auto/); mcp 17:20 Pulse 72 MON; Pulse Ox 95% ; mcp 10:21 Body Mass Index 29.05 (81.65 kg, 167.64 cm) cmb Fernandez Coma Score: 10:24 Eye Response: spontaneous(4). Verbal Response: oriented(5). Motor Response: obeys mlb1 commands(6). Total: 15. Procedures: 12:53 Laceration repair:. ml Laceration: 12:53 Wound Repair of 3cm ( 1.2in ) full thickness laceration to left parietal area. Linear ml shaped.. Minimal bleeding noted.. Distal neuro/vascular/tendon intact. Anesthesia: Local anesthetic administered with 3 mls of 1% lidocaine w/ Epi, 3 mls of 1% lidocaine w/ Epi. Wound prep: Moderate cleansing with hibiclenz by provider, Wound explored. Skin closed with 3 thin layer Harrison using Running sutures. Dressed with pressure dressing. Patient tolerated well. MDM: 10:54 CT Head Without Contrast Ordered. EDMS 10:54 CT Spine,Cervical W/o Contrast Ordered. EDMS 11:19 [facility] Payment Agreement was scanned into fotobabble and attached to record. lg 11:40 Financial registration complete. lg 11:48 IV Saline Lock ordered. ml 11:48 Link Trainer Operator/Pulse Ox/q 15 min VS ordered. ml 11:48 Rhythm Strip to chart ordered. ml 11:48 Undress patient appropriately for examination ordered. ml 11:48 Orthostatic VS ordered. ml 11:48 Misc. Nursing Order ordered. ml 11:50 CBC with Diff Ordered. EDMS 11:50 MED Profile Ordered. EDMS 11:50 CIP Ordered. EDMS 11:50 Troponin Ordered. EDMS 11:50 TSH with Free T4 Ordered. EDMS 11:50 Chest, 1 View Ordered. EDMS 11:50 ECG WITH READING ER PHYS+CARDIAG ordered. EDMS 12:43 Lidocaine-Epinephrine 2 %-1:100,000 10 ml Infiltration once; to bedside ordered. dsf 12:43 CBC with Diff Reviewed. ml 12:43 MED Profile Reviewed. ml 12:43 CIP Reviewed. ml 12:43 Troponin Reviewed. ml 12:43 TSH with Free T4 Reviewed. ml 12:43 CT Head Without Contrast Reviewed. ml 12:43 CT Spine,Cervical W/o Contrast Reviewed. ml 12:49 BED REQUEST+ADM ordered. EDMS 13:18 PHYSICAL THERAPY EVAL & TREAT ordered. EDMS 13:19 Admission / Observation Status ordered. EDMS 13:19 ECHOCARD,DOPPLER/COLOR FLOW ordered. EDMS 13:19 ELECTROCARDIOGRAM ADULT ordered. EDMS 13:19 CONSISTENT CARBOHYDRATES ordered. EDMS 14:55 amLODIPine 10 mg PO once; ADMISSION ORDER ordered. dsf 14:55 Labetalol 10 mg IVP at bolus once over 2 mins; ADMISSION ORDER ordered. dsf 15:38 Written Provider Order was scanned into fotobabble and attached to record. lbd 17:43 Fingerstick Blood Sugar Ordered. EDMS 22:17 URINALYSIS Ordered. EDMS Administered Medications: 12:43 Drug: Lidocaine-Epinephrine 2 %-1:100,000 10 ml {Note: administered by Dr. Fish .} dsf Route: Infiltration; 14:54 Drug: amLODIPine 10 mg [amlodipine 5 mg tablet (2 tabs)] Route: PO; dsf 14:54 Drug: Labetalol 10 mg [labetalol 5 mg/mL intravenous solution (2 mL)] Route: IVP; Rate: dsf bolus; Infused Over: 2 mins; Site: right antecubital; Critical Care Time: 12:53 Critical care time: Bedside Care: 90 minutes, Consultation: 10 minutes. Total time: 100 ml minutes Signatures: Dispatcher [employer] EDMS Indio Ortiz MD MD ml Skylar Gonzalez, Decorator Consultant Unit lbd Evaristo Villanueva, RN RN cz Saundra Peña, Damien Reg lg Chriss Bardales RN RN mlb1 Heather Bell, Decorator Consultant Unit ml3 Caitlyn Abbott RN RN dsf The chart was reviewed and I authenticate all verbal orders and agree with the evaluation and treatment provided.Corrections: (The following items were deleted from the chart) 21:24 13:18 URINALYSIS ordered. EDMA EDMS Attachments: 11:19 [facility] Payment Agreement lg 15:38 Written Provider Order lbd MTDD
[2016-10-28] MEDS: NS 1,000 ML IV SCH (05:29)
[2016-10-28 07:38] LABS: MEAN CORPUSCULAR HEMOGLOBIN 30.9 pg (27.0-33.0); MEAN CORPUSCULAR HGB CONC 33.8 g/dl (32.0-36.5); MEAN CORPUSCULAR VOLUME 91.4 fl (80.0-96.0); RED CELL DISTRIBUTION WIDTH 13.6 % (11.5-14.5); WHITE BLOOD COUNT 8.9 K/mm3 (4.0-10.0)
[2016-10-28 07:48] LABS: ANION GAP 8 MEQ/L (8-16); BLOOD UREA NITROGEN 15 MG/DL (7-18); CALCIUM LEVEL 8.5 MG/DL (8.8-10.2); CARBON DIOXIDE LEVEL 25 MEQ/L (21-32); CHLORIDE LEVEL 104 MEQ/L (98-107); CREATININE FOR GFR 1.19 MG/DL (0.70-1.30); GLOMERULAR FILTRATION RATE > 60.0 (>42); GLUCOSE, FASTING 141 MG/DL (83-110); POTASSIUM SERUM 4.6 MEQ/L (3.5-5.1); SODIUM LEVEL 137 MEQ/L (136-145)
[2016-10-28 08:00] VITALS: BP 144/64
--- NOTE | 2016-10-28 08:03 | ECGEPIP ---
Stationary ECG Study 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
[2016-10-28] MEDS: CYANOCOBALAMIN 500 MCG TAB PO SCH (08:13)
[2016-10-28] MEDS: HumaLOG INSULIN (NovoLOG) PER UNIT SC SCH ×4 (08:13→20:11)
[2016-10-28 12:00] VITALS: BP 147/67
--- NOTE | 2016-10-28 14:09 | IPNPDOC ---
Assessment/Plan Date Seen The patient was seen on 10/28/16. Plan / VTE VTE Prophylaxis Ordered?: Yes Plan Plan Text 1. S/P mechanical fall with head trauma, with Syncope Laceration to the back of the head s/p stitches in the ER CT Head negative for acute changes, bleeding EKG noted to be in sinus rhythm without prolongation of QT interval. ECHO pending Physical therapy eval pending Likely D/C in 24 hrs if the patient remains medically stable 2. Scalp laceration S/P stitches by the emergency room physician. F/U with PCP for removal of sutures 3. Type 2 diabetes. Cont on ISS 4. Hypertension, controlled 5. Hypercholesterolemia. Cont on Statin 6. Chronic vertigo. No active symptoms of dizziness, lightheadedness 7. PVD with history of three stents placed in the RLE Cont Current Mgmt Subjective Review of Systems CC/HPI The patient is a 76-year-old male admitted with a reason for visit of Syncope And Collapse. General: Denies: Chills, Night Sweats Constitutional: Denies: Chills, Fever Eyes: Denies: Pain, Vision change ENT: Denies: Ear Pain, Head Aches Skin: Denies: Lesions, Rash Pulmonary: Denies: Cough, Dyspnea Cardiovascular: Denies: Chest Pain, Palpitations Gastrointestinal: Denies: Nausea, Vomiting Hematologic: Denies: Bleeding Excessively, Bruising Neurological: Denies: Numbness, Weakness Objective Physical Examination General Exam: Positive: Alert, Cooperative, No Acute Distress ENT Exam: Positive: Atraumatic, Mucous membr. moist/pink Chest Exam: Positive: Clear to auscultation, Normal air movement Heart Exam: Positive: Normal S1, Normal S2, Rate Normal Telemetry: Positive: Sinus Abdomen Exam: Positive: Soft, Negative: Hepatospenomegaly, Tenderness Extremity Exam: Negative: Swelling, Tenderness Vital Signs/I&O Vital Signs Date Time Temp Pulse Resp B/P Pulse Ox O2 Delivery O2 Flow Rate FiO2 10/28/16 13:18 84 10/28/16 08:00 96.8 18 144/64 96 Room Air I&O- Last 24 Hours up to 6 AM 10/28/16 06:00 Intake Total 1320 ml Output Total 1400 ml Balance -80 ml Laboratory Data Labs 24H Laboratory Tests 2 10/27/16 17:33: Bedside Glucose (Misc Panel) 123H 10/27/16 20:07: Bedside Glucose (Misc Panel) 219H 10/27/16 22:26: Urine Amorphous Sediment , Urine Appearance CLEAR, Urine Color STRAW, Urine pH 6.0, Urine Specific [place] 1.008, Urine Protein NEGATIVE, Urine Glucose (UA) 2+ H, Urine Ketones NEGATIVE, Urine Urobilinogen 0.2, Urine Bilirubin NEGATIVE, Urine Leukocyte Esterase 1+H, Urine Bacteria (Auto) NEGATIVE, Urine Blood NEGATIVE, Urine Calcium Carbonate Cryst(Auto) , Urine Calcium Oxalate Cryst ( Auto) , Urine Calcium Phosphate [place] (Auto) , Urine Cellular Casts , Urine Cystine Crystals , Urine Granular Casts (Auto) , Urine Hyaline Casts (Auto) 0, Urine Leucine Crystals , Urine Mucus (Auto) SMALL, Urine Nitrite NEGATIVE, Urine Oval Fat Bodies (Auto) , Urine RBC (Auto) 2, Urine Renal Epithelial Cells , Urine Sperm (Auto) , Urine Squamous Epithelial Cells 0, Urine Transitional Epithelial Cells , Urine Trichomonas (Auto) , Urine Triple Phosphate Cryst (Auto ) , Urine Tyrosine Crystals , Urine Uric Acid Crystals (Auto) , Urine WBC (Auto ) 3, Urine Waxy Casts (Auto) , Urine Yeast-Like Cells (Auto) 10/28/16 05:24: Bedside Glucose (Misc Panel) 148H 10/28/16 07:25: Anion Gap 8, Blood Urea Nitrogen 15, Creatinine 1.19, Sodium Level 137, Potassium Level 4.6, Chloride Level 104, Carbon Dioxide Level 25, Calcium Level 8.5L, Glomerular Filtration Rate > 60.0 10/28/16 12:28: Bedside Glucose (Misc Panel) 125H CBC/BMP Laboratory Tests 10/28/16 07:25 Calcium Level 8.5 L, Red Blood Count 4.48, Mean Corpuscular Volume 91.4, Mean Corpuscular Hemoglobin 30.9, Mean Corpuscular Hemoglobin Concent 33.8, Red Cell Distribution Width 13.6 FSBS Laboratory Tests Test 10/27/16 17:33 10/27/16 20:07 10/28/16 05:24 10/28/16 12:28 Range/Units Bedside Glucose (Misc Panel) 123 219 148 125 83-110 MG/DL ROBERT EL MD Oct 28, 2016 14:09
[2016-10-28] MEDS: LISINOPRIL 20 MG TAB PO SCH (16:40)
[2016-10-28 20:00] VITALS: BP 115/57
[2016-10-28] MEDS: VITAMIN D 1,000 INTERNATIONAL UNITS TABLET PO SCH (20:11)
[2016-10-28] MEDS: SIMVASTATIN 40 MG TAB PO SCH (20:11)
--- NOTE | 2016-10-28 21:21 | ECHO ---
DATE OF PROCEDURE: 10/28/2016 REFERRING PHYSICIAN: Zhanna Burnette MD INDICATION: Syncope. HEIGHT: 168 cm WEIGHT: 82 kg MEASUREMENTS: Ventricular septum: 1.27 cm Posterior wall: 1.30 cm Left ventricle diastole: 3.9 cm Left atrium: 3.3 cm Aortic root: 3.0 cm Inferior vena cava: 1.9 cm DOPPLER MEASUREMENTS: Aortic valve velocity: 171 cm/s LVOT velocity: 129 cm/s LVOT VTI: 26.2 cm Mild mitral annular calcification. No mitral regurgitation. Mitral E velocity: 76.5 cm/s Mitral A velocity: 81.4 cm/s Mitral deceleration time: 250 ms Pulmonary arterial systolic pressure 31 mmHg by pulmonary acceleration time method. MITRAL ANNULAR TISSUE DOPPLER: E prime septal: 7.1 cm/s E prime lateral: 10.6 cm/s DESCRIPTION: Rhythm was sinus. No pericardial effusion. This is a moderately technically difficult echocardiogram. CONCLUSIONS: 1. Mild concentric left ventricle hypertrophy. Normal left ventricle (LV) wall motion and wall thickening. Left ventricular ejection fraction (LVEF) 65-70%. Normal LV systolic and diastolic function. 2. Mild aortic valve sclerosis of a three-cuspid aortic valve. Aortic valve was functional. 3. Mild mitral annular calcification. No mitral regurgitation. 4. Suggestive of slight elevation of pulmonary artery systolic pressure.
[2016-10-29 00:11] VITALS: BP 122/65
[2016-10-29] MEDS: METOPROLOL TART 25 MG TABLET PO SCH ×3 (00:17→12:00)
[2016-10-29 05:09] VITALS: BP 116/62
[2016-10-29 06:09] LABS: MEAN CORPUSCULAR HEMOGLOBIN 31.3 pg (27.0-33.0); MEAN CORPUSCULAR VOLUME 91.8 fl (80.0-96.0); WHITE BLOOD COUNT 7.4 K/mm3 (4.0-10.0)
[2016-10-29 06:20] LABS: ANION GAP 8 MEQ/L (8-16); BLOOD UREA NITROGEN 17 MG/DL (7-18); CALCIUM LEVEL 8.6 MG/DL (8.8-10.2); CARBON DIOXIDE LEVEL 23 MEQ/L (21-32); CHLORIDE LEVEL 109 MEQ/L (98-107); CREATININE FOR GFR 1.15 MG/DL (0.70-1.30); GLOMERULAR FILTRATION RATE > 60.0 (>42); GLUCOSE, FASTING 147 MG/DL (83-110); POTASSIUM SERUM 4.3 MEQ/L (3.5-5.1); SODIUM LEVEL 140 MEQ/L (136-145)
[2016-10-29 08:00] VITALS: BP 136/57
[2016-10-29] MEDS: CYANOCOBALAMIN 500 MCG TAB PO SCH (08:02)
[2016-10-29] MEDS: HumaLOG INSULIN (NovoLOG) PER UNIT SC SCH (08:02)
[2016-10-29] MEDS: LISINOPRIL 20 MG TAB PO SCH (08:02)
[2016-10-29 12:00] VITALS: BP 133/62
--- NOTE | 2016-10-29 16:04 | DS.PDOC ---
Discharge Summary General Date of Admission Oct 27, 2016 at 13:14 Date of Discharge Oct 29, 2016 at 14:51 Discharge Summary PROCEDURES PERFORMED DURING STAY: None. COMPLICATIONS/CHIEF COMPLAINT: Syncope And Collapse ADMISSION DIAGNOSES: 1. .s/p Mechanical Fall with Head Trauma DISCHARGE DIAGNOSES: 1. .s/p Mechanical Fall with Head Trauma HISTORY OF PRESENT ILLNESS: 76-year-old male with past medical history of hypertension, diabetes mellitus, dyslipidemia, peripheral vascular disease with stent placement in 2014 in the right lower extremity presents to the ER with a chief complaint of mechanical fall. 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 The patient states that he fell backwards hitting the back of his head on the pavement. Subsequently, the patient states that he drove himself to the ER for further evaluation. In the ER, a CT scan of the head and cervical spine revealed no acute findings. The patient did have some sutures placed by the ER physician for a superficial wound on the back of the head. The patient's EKG revealed a sinus rhythm without any acute findings. In addition an echocardiogram was ordered during hospital physician and revealed no underlying systolic or diastolic heart failure. The patient did not have any other complaints of any neurological deficits or symptoms of headaches, lightheadedness, dizziness, or dullness. In addition, patient was noted to have a mild acute kidney injury on admission, and this subsequently resolved after some IV fluid hydration. The patient was seen by physical therapy and cleared home for discharge. DISCHARGE MEDICATIONS: Please see below. ALLERGIES: Please see below. PHYSICAL EXAMINATION ON DISCHARGE: VITAL SIGNS: Please see below. General Exam: Positive: Alert, Cooperative, No Acute Distress ENT Exam: Positive: Atraumatic, Mucous membr. moist/pink Chest Exam: Positive: Clear to auscultation, Normal air movement Heart Exam: Positive: Normal S1, Normal S2, Rate Normal Telemetry: Positive: Sinus Abdomen Exam: Positive: Soft, Negative: Hepatospenomegaly, Tenderness Extremity Exam: Negative: Swelling, Tenderness LABORATORY DATA: Please see below. IMAGING: Clinical: Trauma. Technique: Axial noncontrast images from the skull base to the thoracic inlet with coronal and sagittal re-formations. Findings: Advanced multilevel degenerative disc osteophyte complexes are noted including bridging osteophytes at the C3-4, C5-6, and to a lesser extent the C4-5 levels as well as disc space narrowing most notably involving the C5-6 level. Hypertrophic facet changes are also identified. Alignment is maintained. There is no evidence for acute fracture / compression injury or subluxation. Spinal canal, posterior elements and spinous processes appear patent and intact respectively. Paravertebral soft tissues are unremarkable. Impression: Advanced multilevel degenerative disc osteophyte complexes. No evidence for acute fracture / compression injury or subluxation. Clinical: Trauma. Findings: Age-related atrophy and microvascular ischemic changes are appreciated. The ventricles and sulci are symmetric. Fish-white differentiation is maintained. There is no evidence for acute intracranial hemorrhage, mass/mass effect, pathology or infarction. No extra-axial fluid collection. Calvarium is intact. Paranasal sinuses and mastoid air cells are clear. Impression: Age related atrophy and microvascular ischemic changes. No acute intracranial hemorrhage, infarction, or mass/mass effect. VTE Prophylaxis ordered?: Yes DISCHARGE CONDITION: Medically stable DISPOSITION: 01 Home, Self-Care ACTIVITY: As tolerated DIET: 2 g low sodium diet ITEMS TO FOLLOWUP ON OUTPATIENT: 1. . Follow with primary care physician within one week TIME SPENT ON DISCHARGE: Greater than 30 minutes. Vital Signs/I&Os Vital Signs Date Time Temp Pulse Resp B/P Pulse Ox O2 Delivery O2 Flow Rate FiO2 10/29/16 12:00 65 133/62 10/29/16 08:00 97.5 18 96 Room Air I&O- Last 24 Hours up to 6 AM 10/29/16 06:00 Intake Total 5100 ml Output Total 3225 ml Balance 1875 ml Laboratory Data Labs 24H Laboratory Tests 2 10/28/16 16:38: Bedside Glucose (Misc Panel) 120H 10/28/16 20:10: Bedside Glucose (Misc Panel) 177H 10/29/16 05:30: Anion Gap 8, Blood Urea Nitrogen 17, Creatinine 1.15, Sodium Level 140, Potassium Level 4.3, Chloride Level 109H, Carbon Dioxide Level 23, Calcium Level 8.6L, Glomerular Filtration Rate > 60.0 CBC/BMP Laboratory Tests 10/29/16 05:30 Calcium Level 8.6 L, Red Blood Count 3.98 L, Mean Corpuscular Volume 91.8, Mean Corpuscular Hemoglobin 31.3, Mean Corpuscular Hemoglobin Concent 34.0, Red Cell Distribution Width 13.0 FSBS Laboratory Tests Test 10/28/16 16:38 10/28/16 20:10 Range/Units Bedside Glucose (Misc Panel) 120 177 83-110 MG/DL Medications Scheduled Aspirin (Aspirin EC) 81 Mg Tabec 81 MG PO DAILY Cholecalciferol (Vitamin D) 1,000 Unit Tab 1,000 UNIT PO QPM DINNERTIME Cyanocobalamin (Vitamin B-12) 1,000 Mcg Tab 1,000 MCG PO DAILY Lisinopril (Lisinopril) 20 Mg Tab 20 MG PO DAILY Metformin Hydrochloride (Metformin HCl) 1,000 Mg Tab 1,000 MG PO BID Polyethylene Glycol (Systane 0.4-0.3 %) 15 Ml Anjelica 1 DROP OU DAILY Simvastatin - High Dose (Zocor) 40 Mg Tab 40 MG PO QPM DINNERTIME Scheduled PRN Polyethylene Glycol (Systane 0.4-0.3 %) 15 Ml Anjelica 1 DROP OU PRN PRN PRN DRY EYES Allergies Coded Allergies: No Known Drug Allergy (Unverified Allergy, Unknown, 01/17/13) ROBERT EL MD Oct 29, 2016 16:04
--- NOTE | 2016-10-30 05:01 | EDDOCDS ---
Nurse's Notes [facility] Name: Codie Sanchez Age: 76 yrs Sex: Male : 1940 Arrival Date: 10/27/2016 Time: 10:19 Bed Admit Hold Private MD: Matthew Muse R. Diagnosis: Syncope and collapse;Fall (on) (from) other stairs and steps;Laceration of muscle and tendon of head Presentation: 10/27 10:24 Presenting complaint: Patient states: Fell outside with LOC laceration to scalp, does mlb1 not recall falling. This patient has no additional risk factors. Mechanism of Injury: resulted from a fall. Adult Sepsis Screening: The patient does not have new or worsening altered mentation. Patient's respiratory rate is less than 22. Systolic blood pressure is greater than 100. Patient has a qSOFA score of 0- Negative Sepsis Screen. Suicide/Homicide risk assessment- the patient denies having any suicidal and/or homicidal ideations and does not present with any other emotional, behavioral or mental health complaints. Status: Patient is not a school services officer or dependent. Transition of care: patient was not received from another setting of care. 10:24 Acuity: JERARDO Level 3 mlb1 10:24 Method Of Arrival: Walkin/Carried/Asstd mlb1 Triage Assessment: 10:26 General: Appears in no apparent distress, Behavior is appropriate for age, cooperative. mlb1 Pain: Denies pain. Neurological: Level of Consciousness is awake, alert, Oriented to person, place, time. Historical: - Allergies: no known allergies; - Home Meds: 1. metformin 1,000 mg Oral tab 1 tab 2 times per day 2. lisinopril 20 mg Oral tab 1 tab once daily 3. aspirin 81 mg Oral TbEC 1 tab once daily 4. simvastatin 40 mg Oral tab 1 tab once daily 5. vit B injection monthly 6. Vitamin D Oral 1000 unit daily - PMHx: Diabetes - NIDDM: controlled; Hypercholesterolemia; Hypertension; Vertigo; - PSHx: 3 stents placed in right leg; - Social history: Smoking status: Patient states former smoker of tobacco. No barriers to communication noted, The patient speaks fluent Kazakh, Speaks appropriately for age. - : The pt / caregiver states he / she is not on anticoagulants. Home medication list is obtained from the patient. - Exposure Risk Screening:: None identified. Assessment: 10:55 Adult Sepsis Screening: The patient does not have new or worsening altered mentation. dsf Patient's respiratory rate is less than 22. Systolic blood pressure is greater than 100. Patient has a qSOFA score of 0- Negative Sepsis Screen. General: Appears in no apparent distress, comfortable, Behavior is appropriate for age, cooperative. Pain: Location: back of head Pain currently is 3 out of 10 on a pain scale. Quality of pain is described as aching, dull. Neurological: Level of Consciousness is awake, alert, Oriented to person, place, time, Reports no additional symptoms. Cardiovascular: Capillary refill < 3 seconds Heart tones S1 S2 present Rhythm is sinus rhythm No ectopy. Respiratory: Airway is patent Respiratory effort is even, unlabored, Respiratory pattern is regular, symmetrical, Breath sounds are clear bilaterally. GI: Abdomen is non- distended Bowel sounds present X 4 quads. Abd is soft and non tender X 4 quads. Derm: Skin is pink, warm & dry. 11:55 General: Appears in no apparent distress, Behavior is appropriate for age, cooperative. dsf Pain: Location: back of head Pain currently is 3 out of 10 on a pain scale. Neurological: Level of Consciousness is awake, alert. Cardiovascular: Capillary refill < 3 seconds Rhythm is sinus rhythm No ectopy. Respiratory: Airway is patent Respiratory effort is even, unlabored, Respiratory pattern is regular, symmetrical. Derm: Skin is pink, warm & dry. 12:34 General: Appears in no apparent distress, comfortable, Behavior is appropriate for age, dsf cooperative. Neurological: Level of Consciousness is awake, alert. Cardiovascular: Capillary refill < 3 seconds Rhythm is sinus rhythm No ectopy. Respiratory: Airway is patent Respiratory effort is even, unlabored, Respiratory pattern is regular, symmetrical. Derm: Skin is pink, warm & dry. 13:34 Adult Sepsis Screening: The patient does not have new or worsening altered mentation. dsf Patient's respiratory rate is less than 22. Systolic blood pressure is greater than 100. Patient has a qSOFA score of 0- Negative Sepsis Screen. General: Appears in no apparent distress, Behavior is appropriate for age, cooperative. Pain: Location: back of head Pain currently is 3 out of 10 on a pain scale. Neurological: Level of Consciousness is awake, alert, Oriented to person, place, time. Cardiovascular: Capillary refill < 3 seconds Rhythm is sinus rhythm No ectopy. Respiratory: Airway is patent Respiratory effort is even, unlabored, Respiratory pattern is regular, symmetrical. Derm: Skin is pink, warm & dry. 14:34 General: Appears in no apparent distress, comfortable, Behavior is appropriate for age, dsf cooperative. Pain: Location: back of head Pain currently is 3 out of 10 on a pain scale. Neurological: Level of Consciousness is awake, alert, Oriented to person, place, time. Cardiovascular: Capillary refill < 3 seconds Heart tones S1 S2 present Rhythm is sinus rhythm No ectopy. Respiratory: Airway is patent Respiratory effort is even, unlabored, Respiratory pattern is regular, symmetrical, Breath sounds are clear bilaterally. GI: Abdomen is non- distended Bowel sounds present X 4 quads. Abd is soft and non tender X 4 quads. Derm: Skin is pink, warm & dry. pressure dressing to back of head with tiffany bandage. 15:34 General: Appears in no apparent distress, Behavior is appropriate for age, cooperative. dsf Neurological: Level of Consciousness is awake, alert. Cardiovascular: Capillary refill < 3 seconds Rhythm is sinus rhythm No ectopy. Respiratory: Airway is patent Respiratory effort is even, unlabored, Respiratory pattern is regular, symmetrical. Derm: Skin is pink, warm & dry. 16:36 Adult Sepsis Screening: The patient does not have new or worsening altered mentation. dsf Patient's respiratory rate is less than 22. Systolic blood pressure is greater than 100. Patient has a qSOFA score of 0- Negative Sepsis Screen. General: Appears in no apparent distress, comfortable, Behavior is appropriate for age, cooperative. Pain: Location: back of head Pain currently is 3 out of 10 on a pain scale. Neurological: Level of Consciousness is awake, alert. Cardiovascular: Capillary refill < 3 seconds Rhythm is sinus rhythm No ectopy. Respiratory: Airway is patent Respiratory effort is even, unlabored, Respiratory pattern is regular, symmetrical. GI: Abdomen is non- distended. Derm: Skin is pink, warm & dry. Vital Signs: 10:21 BP 210 / 99; Pulse 111; Resp 16; Temp 97.9(O); Pulse Ox 96% ; Weight 81.65 kg; Height 5 cmb ft. 6 in. (167.64 cm); Pain 0/10; 10:47 BP 174 / 70 LA (man/); mlb1 10:50 BP 173 / 84 (auto/); dsf 10:53 Pulse 92 MON; Pulse Ox 96% ; dsf 10:55 Pulse 92 MON; Pulse Ox 95% ; dsf 11:05 BP 198 / 91 (auto/); dsf 11:07 Pulse 90 MON; Pulse Ox 95% ; dsf 11:18 BP 180 / 79 (auto/); dsf 11:18 Pulse 84 MON; Pulse Ox 93% ; dsf 11:20 BP 175 / 82 (auto/); dsf 11:21 Pulse 82 MON; Pulse Ox 93% ; dsf 11:35 BP 176 / 82 (auto/); dsf 11:36 Pulse 82 MON; Pulse Ox 92% ; dsf 11:50 BP 195 / 88 (auto/); dsf 11:50 Pulse 82 MON; Pulse Ox 94% ; dsf 11:59 Pulse 80 MON; dsf 11:59 BP 173 / 81 (auto/); dsf 12:00 Pulse 82 MON; dsf 12:00 BP 171 / 81 (auto/); dsf 12:00 BP 167 / 80 (auto/); dsf 12:04 Pulse 84 MON; dsf 12:05 BP 175 / 83 (auto/); dsf 12:06 BP 173 / 81 Supine; Pulse 82; dsf 12:06 BP 171 / 81 Sitting; Pulse 82; dsf 12:06 BP 167 / 80 Standing; Pulse 92; dsf 12:19 Pulse 84 MON; dsf 12:20 BP 172 / 82 (auto/); dsf 12:35 BP 171 / 79 (auto/); dsf 12:35 Pulse 88 MON; Pulse Ox 96% ; dsf 12:50 Pulse 86 MON; Pulse Ox 97% ; dsf 12:50 BP 168 / 78 (auto/); dsf 13:05 BP 156 / 67 (auto/); dsf 13:05 Pulse 82 MON; Pulse Ox 97% ; dsf 13:20 BP 182 / 106 (auto/); dsf 13:20 Pulse 86 MON; Pulse Ox 97% ; dsf 13:34 Pulse 82 MON; Pulse Ox 97% ; dsf 13:35 BP 168 / 79 (auto/); dsf 13:50 BP 163 / 77 (auto/); dsf 13:50 Pulse 80 MON; Pulse Ox 96% ; dsf 14:05 BP 172 / 78 (auto/); dsf 14:05 Pulse 88 MON; Pulse Ox 96% ; dsf 14:20 BP 169 / 84 (auto/); dsf 14:20 Pulse 84 MON; Pulse Ox 96% ; dsf 14:35 Pulse 78 MON; Pulse Ox 97% ; dsf 14:35 BP 169 / 77 (auto/); Resp 20; Temp 97.6(TE); Pain 3/10; dsf 14:46 BP 172 / 83 (auto/); dsf 14:46 Pulse 78 MON; Pulse Ox 96% ; dsf 14:50 BP 168 / 75 (auto/); dsf 14:50 Pulse 76 MON; Pulse Ox 96% ; dsf 15:05 BP 159 / 79 (auto/); dsf 15:05 Pulse 74 MON; Pulse Ox 94% ; dsf 15:20 BP 144 / 72 (auto/); dsf 15:20 Pulse 74 MON; Pulse Ox 94% ; dsf 15:35 BP 143 / 67 (auto/); dsf 15:35 Pulse 74 MON; Pulse Ox 96% ; dsf 15:50 Pulse 74 MON; Pulse Ox 95% ; mcp 15:50 BP 152 / 76 (auto/); mcp 16:05 BP 162 / 78 (auto/); mcp 16:05 Pulse 76 MON; Pulse Ox 96% ; mcp 16:20 BP 146 / 67 (auto/); mcp 16:20 Pulse 74 MON; Pulse Ox 96% ; mcp 16:35 BP 132 / 66 (auto/); mcp 16:35 Pulse 72 MON; Pulse Ox 96% ; mcp 16:50 BP 140 / 68 (auto/); mcp 16:50 Pulse 68 MON; Pulse Ox 95% ; mcp 17:05 BP 135 / 65 (auto/); mcp 17:05 Pulse 70 MON; Pulse Ox 96% ; mcp 17:20 BP 138 / 68 (auto/); mcp 17:20 Pulse 72 MON; Pulse Ox 95% ; mcp 10:21 Body Mass Index 29.05 (81.65 kg, 167.64 cm) cmb Vitals: 10:21 Log In Time: October 27, 2016 at 10:19. cmb Fernandez Coma Score: 10:24 Eye Response: spontaneous(4). Verbal Response: oriented(5). Motor Response: obeys mlb1 commands(6). Total: 15. ED Course: 10:21 Patient visited by Stacie Morgan. cmb 10:21 Matthew Muse is Private Physician. cmb 10:21 Patient moved to Waiting cmb 10:23 Patient moved to Pre RCE cmb 10:24 Patient visited by Chriss Bardales, VIKI. mlb1 10:25 Triage Initiated mlb1 10:27 Patient visited by Chriss Bardales RN. mlb1 10:29 Patient moved to Triage 2 mlb1 10:47 Patient moved to 10 mlb1 10:57 Patient visited by Caitlyn Abbott RN. dsf 10:57 The patient / caregiver is instructed regarding the plan of care and ED course. Patient dsf has correct armband on for positive identification. Placed in gown. Bed in low position. Call light in reach. Side rails up X2. proposal writer on. Pulse ox on. NIBP on. 10:[address] dsf 11:18 Patient name changed from Codie\S\\S\Sanchez\S\ to Codie\S\ \S\Sanchez. EDMS 11:19 [facility] [place] Payment Agreement was scanned into [employer] and attached to record. lg 11:24 Patient moved to 10 dsf 11:25 CT Head Without Contrast Returned. EDMS 11:25 CT Spine,Cervical W/o Contrast Returned. EDMS 11:32 Patient visited by Rosa Maria Barrett PCA. jlf 11:39 Indio Ortiz MD is Attending Physician. ml 11:39 Patient visited by Indio Ortiz MD. ml 12:03 Patient visited by Rosa Maria Barrett PCA. jlf 12:03 Patient visited by Rosa Maria Barrett PCA. jlf 12:03 EKG done. (by ED staff). Reviewed by Indio Ortiz MD. jlf 12:04 TSH with Free T4 Sent. dsf 12:04 Troponin Sent. dsf 12:04 CIP Sent. dsf 12:04 MED Profile Sent. dsf 12:04 CBC with Diff Sent. dsf 12:04 Inserted saline lock: 20 gauge in right antecubital area The patient tolerated the dsf procedure well. 12:07 Patient visited by Caitlyn Abbott RN. dsf 12:34 Patient visited by Caitlyn Abbott RN. dsf 12:52 Deja Burnettean is Hospitalizing Provider. ml 13:15 Chest, 1 View Returned. EDMS 15:38 Written Provider Order was scanned into [employer] and attached to record. lbd 15:51 Patient visited by Caitlyn Abbott RN. dsf 16:37 Patient visited by Caitlyn Abbott RN. dsf 17:17 Patient moved to Admit Hold mcp 17:32 Patient moved to 19 dsf 19:00 Patient moved to Admit Hold ml3 19:13 EKG-ADULT Returned. EDMS 10/28 09:55 T-Sheet-- Draft Copy was scanned into [employer] and attached to record. gb 12:00 T-Sheet-- Draft Copy was scanned into [employer] and attached to record. gb Administered Medications: 10/27 12:43 Drug: Lidocaine-Epinephrine 2 %-1:100,000 10 ml {Note: administered by Dr. Fish .} dsf Route: Infiltration; 14:54 Drug: amLODIPine 10 mg [amlodipine 5 mg tablet (2 tabs)] Route: PO; dsf 14:54 Drug: Labetalol 10 mg [labetalol 5 mg/mL intravenous solution (2 mL)] Route: IVP; Rate: dsf bolus; Infused Over: 2 mins; Site: right antecubital; Order Results: Lab Order: CBC with Diff; SPEC'M 10/27/16 11:58 Test: WHITE BLOOD COUNT; Value: 10.4; Range: 4.0-10.0; Abnormal: Above high normal; Units: K/mm3; Status: F Test: RED BLOOD COUNT; Value: 4.72; Range: 4.30-6.10; Units: M/mm3; Status: F Test: HEMOGLOBIN; Value: 14.8; Range: 14.0-18.0; Units: g/dl; Status: F Test: HEMATOCRIT; Value: 43.4; Range: 42.0-52.0; Units: %; Status: F Test: MEAN CORPUSCULAR VOLUME; Value: 92.0; Range: 80.0-96.0; Units: fl; Status: F Test: MEAN CORPUSCULAR HEMOGLOBIN; Value: 31.3; Range: 27.0-33.0; Units: pg; Status: F Test: MEAN CORPUSCULAR HGB CONC; Value: 34.0; Range: 32.0-36.5; Units: g/dl; Status: F Test: RED CELL DISTRIBUTION WIDTH; Value: 12.8; Range: 11.5-14.5; Units: %; Status: F Test: PLATELET COUNT, AUTOMATED; Value: 348; Range: 150-450; Units: k/mm3; Status: F Test: NEUTROPHILS %; Value: 81.8; Range: 36.0-66.0; Abnormal: Above high normal; Units: %; Status: F Test: LYMPH %; Value: 11.0; Range: 24.0-44.0; Abnormal: Below low normal; Units: %; Status: F Test: MONO %; Value: 4.8; Range: 0.0-5.0; Units: %; Status: F Test: EOS %; Value: 0.5; Range: 0.0-3.0; Units: %; Status: F Test: BASO %; Value: 0.3; Range: 0.0-1.0; Units: %; Status: F Test: LARGE UNSTAINED CELL %; Value: 1.6; Range: 0.0-4.0; Units: %; Status: F Test: NEUTROPHILS #; Value: 8.5; Range: 1.8-7.7; Abnormal: Above high normal; Units: K/mm3; Status: F Test: LYMPH #; Value: 1.2; Range: 1.5-4.5; Abnormal: Below low normal; Units: K/mm3; Status: F Test: MONO #; Value: 0.5; Range: 0.0-0.8; Units: K/mm3; Status: F Test: EOS #; Value: 0.0; Range: 0.0-0.50; Units: K/mm3; Status: F Test: BASO #; Value: 0.0; Range: 0.0-0.2; Units: K/mm3; Status: F Test: LARGE UNSTAINED CELL #; Value: 0.2; Range: 0.0-0.4; Units: K/mm3; Status: F Lab Order: [facility] Profile; [facility] 10/27/16 11:58 Test: GLUCOSE, FASTING; Value: 144; Range: 83-110; Abnormal: Above high normal; Units: MG/DL; Status: F Test: BLOOD UREA NITROGEN; Value: 19; Range: 7-18; Abnormal: Above high normal; Units: MG/DL; Status: F Test: CREATININE FOR GFR; Value: 1.31; Range: 0.70-1.30; Abnormal: Above high normal; Units: MG/DL; Status: F Test: GLOMERULAR FILTRATION RATE; Value: 56.3; Range: >42; Status: F Test: SODIUM LEVEL; Value: 134; Range: 136-145; Abnormal: Below low normal; Units: MEQ/L; Status: F Test: POTASSIUM SERUM; Value: 4.6; Range: 3.5-5.1; Units: MEQ/L; Status: F Test: CHLORIDE LEVEL; Value: 101; Range: 98-107; Units: MEQ/L; Status: F Test: CARBON DIOXIDE LEVEL; Value: 27; Range: 21-32; Units: MEQ/L; Status: F Test: ANION GAP; Value: 6; Range: 8-16; Abnormal: Below low normal; Units: MEQ/L; Status: F Test: CALCIUM LEVEL; Value: 9.1; Range: 8.8-10.2; Units: MG/DL; Status: F Test Note: ; Units are mL/min/1.73 m2 Chronic Kidney Disease Staging per NKF: Stage I & II GFR >=60 Normal to Mildly Decreased Stage III GFR 30-59 Moderately Decreased Stage IV GFR 15-29 Severely Decreased Stage V GFR <15 Very Little GFR Left ESRD GFR <15 on LABEL FUSER TENDER Lab Order: CIP; SPEC'M 10/27/16 11:58 Test: CPK CREATINE PHOSPHOKINASE; Value: 67; Range: 39-308; Units: U/L; Status: F Test: CK-MB VALUE MASS; Value: 2.3; Range: 0.0-3.6; Units: NG/ML; Status: F Test: MB/CK RELATIVE INDEX; Value: 3.43; Range: < OR =4; Status: F Test Note: ; DIAGNOSIS CRITERIA MMB ng/ml Relative Index (RI) NON-AMI < or = 5 N/A FISH ZONE > 5 < or = 4 AMI > 5 > 4 Lab Order: Troponin; SPEC'M 10/27/16 11:58 Test: TROPONIN I; Value: < 0.02; Range: < 0.10; Units: NG/ML; Status: F Test Note: ; Troponin I Reference Interval for Siemens Gentry LOCI: 99th Percentile= 0.00-0.045 ng/ml Risk Stratification: <= 0.10 ng/ml Decreased Risk for Adverse Clinical Events. 0.10-1.50 ng/ml Increased Risk for Adverse Clinical Events. Evaluation of additional criterion and/or repeat testing in 2-6 hours is suggested to rule out myocardial damage. >= 1.50 ng/ml Indicative of Myocardial Injury. Lab Order: TSH with Free T4; SPEC'M 10/27/16 11:58 Test: THYROID STIMULATING HORMONE; Value: 2.100; Range: 0.358-3.740; Units: uIU/ML; Status: F Test: FREE T4; Value: 1.03; Range: 0.76-1.46; Units: NG/DL; Status: F Lab Order: URINALYSIS; SPEC'M 10/27/16 22:26 Test: APPEARANCE, URINE; Value: CLEAR; Range: CLEAR; Status: F Test: COLOR, URINE; Value: STRAW; Range: YELLOW; Status: F Test: PH,URINE; Value: 6.0; Range: 5.0-9.0; Units: UNITS; Status: F Test: SPECIFIC GRAVITY URINE AUTO; Value: 1.008; Range: 1.002-1.035; Status: F Test: PROTEIN, URINE AUTO; Value: NEGATIVE; Range: NEGATIVE; Units: mg/dL; Status: F Test: GLUCOSE, URINE (UA) AUTO; Value: 2+; Range: NEGATIVE; Abnormal: Above high normal; Units: mg/dL; Status: F Test: KETONE, URINE AUTO; Value: NEGATIVE; Range: NEGATIVE; Units: mg/dL; Status: F Test: UROBILINOGEN, URINE AUTO; Value: 0.2; Range: 0.0-2.0; Units: mg/dL; Status: F Test: BILIRUBIN, URINE AUTO; Value: NEGATIVE; Range: NEGATIVE; Status: F Test: NITRITE, URINE AUTO; Value: NEGATIVE; Range: NEGATIVE; Status: F Test: LEUKOCYTE ESTERASE, URINE AUTO; Value: 1+; Range: NEGATIVE; Abnormal: Above high normal; Status: F Test: BLOOD, URINE BLOOD; Value: NEGATIVE; Range: NEGATIVE; Status: F Test: WBC, URINE AUTO; Value: 3; Range: 0-3; Units: /HPF; Status: F Test: RBC, URINE AUTO; Value: 2; Range: 0-3; Units: /HPF; Status: F Test: BACTERIA, URINE AUTO; Value: NEGATIVE; Range: NEGATIVE; Status: F Test: SQUAMOUS EPITHELIAL CELL UR AU; Value: 0; Range: 0-6; Units: /HPF; Status: F Test: MUCUS, URINE; Value: SMALL; Range: NEGATIVE; Status: F Test: HYALINE CAST, URINE AUTO; Value: 0; Range: 0-1; Units: /LPF; Status: F Radiology Order: CT Head Without Contrast Test: CT Head Without Contrast REASON FOR EXAMINATION: Trauma; Clinical: Trauma.; ; Findings:; Age-related atrophy and microvascular ischemic changes are appreciated. The; ventricles and sulci are symmetric. Fish-white differentiation is maintained.; There is no evidence for acute intracranial hemorrhage, mass/mass effect,; pathology or infarction. No extra-axial fluid collection. Calvarium is intact.; Paranasal sinuses and mastoid air cells are clear.; ; Impression:; Age related atrophy and microvascular ischemic changes.; No acute intracranial hemorrhage, infarction, or mass/mass effect.; ; ; Signed by; Juno Lopez MD 10/27/2016 11:13 A; Radiology Order: CT Spine,Cervical W/o Contrast Test: CT Spine,Cervical W/o Contrast REASON FOR EXAMINATION: Trauma; Clinical: Trauma.; ; Technique: Axial noncontrast images from the skull base to the thoracic inlet; with coronal and sagittal re-formations.; ; Findings:; Advanced multilevel degenerative disc osteophyte complexes are noted including; bridging osteophytes at the C3-4, C5-6, and to a lesser extent the C4-5 levels as; well as disc space narrowing most notably involving the C5-6 level. Hypertrophic; facet changes are also identified. Alignment is maintained. There is no; evidence for acute fracture / compression injury or subluxation. 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: ; : 1940 Requested By: Indio Ortiz; Order Number: [id number] Reading MD: Magdalene Zuñiga; Measurements; Intervals [place]; Rate: 81 P: 62; OR: 150 QRS: 54; QRSD: 82 T: 23; QT: 340; QTc: 397; Interpretive Statements; SINUS RHYTHM; NSTTW ABNORMALITY; DECREASED RATE 12/23/15; Electronically Signed On 10-27-2016 18:09:38 EST by Magdalene Zuñiga; Radiology Order: Chest, 1 View Test: Chest, 1 View REASON FOR EXAMINATION: Syncope; AP Portable sitting chest radiograph 10/27/2016; ; Indication: Syncope; ; Comparison PA and lateral chest 02/06/2016 and 12/23/2015; ; Findings: The cardiac silhouette is of normal size. There is ectasia and; tortuosity of the thoracic aorta. There is pulmonary vascular congestion. Small; amount of bibasilar atelectasis is noted.; ; Bones and soft tissues within normal limits.; ; Impression:; ; Normal cardiac silhouette. Tortuosity and ectasia of thoracic aorta.; ; Pulmonary venous hypertension. Mild bibasilar atelectatic changes and/or; scarring.; ; ; Signed by; Clemencia Whitfield MD 10/27/2016 12:28 P; Outcome: 12:53 Decision to Hospitalize by Provider. 10/28 03:59 Patient left the ED. cz Signatures: Dispatcher [employer] EDMS Indio Ortiz MD MD ml Daly, Linda, [place] [facility] lbd Cinthia Skelton RN RN mcp Zecher, Calvin, RN RN cz Mary Kay Olson, Reg Reg gb Saundra Peña, Reg Reg lg Chriss Bardales RN RN mlb1 Сегрей Bellzabeth, [place] [facility] ml3 Caitlyn Abbott,VIKI RN Stacie Hdz Jordain, LUIZA EYEGLASS ASSEMBLER jlf Chart Complete MTDD
--- NOTE | 2016-10-30 05:01 | EDDOCDS ---
Physician Documentation [facility] Name: Brian Aguirre Age: 76 yrs Sex: Male : 1940 Arrival Date: 10/27/2016 Time: 10:19 Bed Admit Hold Private MD: Matthew Muse R. Disposition: 10/27 12:53 Critical Care:. ml Disposition: 10/27/16 12:53 Hospitalization ordered by Zhanna Burnette for Inpatient Admission. Preliminary diagnosis are Syncope and collapse, Fall (on) (from) other stairs and steps, Laceration of muscle and tendon of head. - Bed requested for PCU. - Status is Inpatient Admission. cz - Condition is Stable. - Problem is new. - Symptoms are unchanged. Historical: - Allergies: no known allergies; - Home Meds: 1. metformin 1,000 mg Oral tab 1 tab 2 times per day 2. lisinopril 20 mg Oral tab 1 tab once daily 3. aspirin 81 mg Oral TbEC 1 tab once daily 4. simvastatin 40 mg Oral tab 1 tab once daily 5. vit B injection monthly 6. Vitamin D Oral 1000 unit daily - PMHx: Diabetes - NIDDM: controlled; Hypercholesterolemia; Hypertension; Vertigo; - PSHx: 3 stents placed in right leg; - Social history: Smoking status: Patient states former smoker of tobacco. No barriers to communication noted, The patient speaks fluent Nigerien, Speaks appropriately for age. - : The pt / caregiver states he / she is not on anticoagulants. Home medication list is obtained from the patient. - Exposure Risk Screening:: None identified. Vital Signs: 10:21 BP 210 / 99; Pulse 111; Resp 16; Temp 97.9(O); Pulse Ox 96% ; Weight 81.65 kg / 180.01 cmb lbs; Height 5 ft. 6 in. (167.64 cm); Pain 0/10; 10:47 BP 174 / 70 LA (man/); mlb1 10:50 BP 173 / 84 (auto/); dsf 10:53 Pulse 92 MON; Pulse Ox 96% ; dsf 10:55 Pulse 92 MON; Pulse Ox 95% ; dsf 11:05 BP 198 / 91 (auto/); dsf 11:07 Pulse 90 MON; Pulse Ox 95% ; dsf 11:18 BP 180 / 79 (auto/); dsf 11:18 Pulse 84 MON; Pulse Ox 93% ; dsf 11:20 BP 175 / 82 (auto/); dsf 11:21 Pulse 82 MON; Pulse Ox 93% ; dsf 11:35 BP 176 / 82 (auto/); dsf 11:36 Pulse 82 MON; Pulse Ox 92% ; dsf 11:50 BP 195 / 88 (auto/); dsf 11:50 Pulse 82 MON; Pulse Ox 94% ; dsf 11:59 Pulse 80 MON; dsf 11:59 BP 173 / 81 (auto/); dsf 12:00 Pulse 82 MON; dsf 12:00 BP 171 / 81 (auto/); dsf 12:00 BP 167 / 80 (auto/); dsf 12:04 Pulse 84 MON; dsf 12:05 BP 175 / 83 (auto/); dsf 12:06 BP 173 / 81 Supine; Pulse 82; dsf 12:06 BP 171 / 81 Sitting; Pulse 82; dsf 12:06 BP 167 / 80 Standing; Pulse 92; dsf 12:19 Pulse 84 MON; dsf 12:20 BP 172 / 82 (auto/); dsf 12:35 BP 171 / 79 (auto/); dsf 12:35 Pulse 88 MON; Pulse Ox 96% ; dsf 12:50 Pulse 86 MON; Pulse Ox 97% ; dsf 12:50 BP 168 / 78 (auto/); dsf 13:05 BP 156 / 67 (auto/); dsf 13:05 Pulse 82 MON; Pulse Ox 97% ; dsf 13:20 BP 182 / 106 (auto/); dsf 13:20 Pulse 86 MON; Pulse Ox 97% ; dsf 13:34 Pulse 82 MON; Pulse Ox 97% ; dsf 13:35 BP 168 / 79 (auto/); dsf 13:50 BP 163 / 77 (auto/); dsf 13:50 Pulse 80 MON; Pulse Ox 96% ; dsf 14:05 BP 172 / 78 (auto/); dsf 14:05 Pulse 88 MON; Pulse Ox 96% ; dsf 14:20 BP 169 / 84 (auto/); dsf 14:20 Pulse 84 MON; Pulse Ox 96% ; dsf 14:35 Pulse 78 MON; Pulse Ox 97% ; dsf 14:35 BP 169 / 77 (auto/); Resp 20; Temp 97.6(TE); Pain 3/10; dsf 14:46 BP 172 / 83 (auto/); dsf 14:46 Pulse 78 MON; Pulse Ox 96% ; dsf 14:50 BP 168 / 75 (auto/); dsf 14:50 Pulse 76 MON; Pulse Ox 96% ; dsf 15:05 BP 159 / 79 (auto/); dsf 15:05 Pulse 74 MON; Pulse Ox 94% ; dsf 15:20 BP 144 / 72 (auto/); dsf 15:20 Pulse 74 MON; Pulse Ox 94% ; dsf 15:35 BP 143 / 67 (auto/); dsf 15:35 Pulse 74 MON; Pulse Ox 96% ; dsf 15:50 Pulse 74 MON; Pulse Ox 95% ; mcp 15:50 BP 152 / 76 (auto/); mcp 16:05 BP 162 / 78 (auto/); mcp 16:05 Pulse 76 MON; Pulse Ox 96% ; mcp 16:20 BP 146 / 67 (auto/); mcp 16:20 Pulse 74 MON; Pulse Ox 96% ; mcp 16:35 BP 132 / 66 (auto/); mcp 16:35 Pulse 72 MON; Pulse Ox 96% ; mcp 16:50 BP 140 / 68 (auto/); mcp 16:50 Pulse 68 MON; Pulse Ox 95% ; mcp 17:05 BP 135 / 65 (auto/); mcp 17:05 Pulse 70 MON; Pulse Ox 96% ; mcp 17:20 BP 138 / 68 (auto/); mcp 17:20 Pulse 72 MON; Pulse Ox 95% ; mcp 10:21 Body Mass Index 29.05 (81.65 kg, 167.64 cm) cmb Fernandez Coma Score: 10:24 Eye Response: spontaneous(4). Verbal Response: oriented(5). Motor Response: obeys mlb1 commands(6). Total: 15. Procedures: 12:53 Laceration repair:. ml Laceration: 12:53 Wound Repair of 3cm ( 1.2in ) full thickness laceration to left parietal area. Linear ml shaped.. Minimal bleeding noted.. Distal neuro/vascular/tendon intact. Anesthesia: Local anesthetic administered with 3 mls of 1% lidocaine w/ Epi, 3 mls of 1% lidocaine w/ Epi. Wound prep: Moderate cleansing with hibiclenz by provider, Wound explored. Skin closed with 3 thin layer Jerome using Running sutures. Dressed with pressure dressing. Patient tolerated well. MDM: 10:54 CT Head Without Contrast Ordered. EDMS 10:54 CT Spine,Cervical W/o Contrast Ordered. EDMS 11:19 [facility] Payment Agreement was scanned into [employer] and attached to record. lg 11:40 Financial registration complete. lg 11:48 IV Saline Lock ordered. ml 11:48 Benefits Assistant/Pulse Ox/q 15 min VS ordered. ml 11:48 Rhythm Strip to chart ordered. ml 11:48 Undress patient appropriately for examination ordered. ml 11:48 Orthostatic VS ordered. ml 11:48 Misc. Nursing Order ordered. ml 11:50 CBC with Diff Ordered. EDMS 11:50 MED Profile Ordered. EDMS 11:50 CIP Ordered. EDMS 11:50 Troponin Ordered. EDMS 11:50 TSH with Free T4 Ordered. EDMS 11:50 Chest, 1 View Ordered. EDMS 11:50 ECG WITH READING ER PHYS+CARDIAG ordered. EDMS 12:43 Lidocaine-Epinephrine 2 %-1:100,000 10 ml Infiltration once; to bedside ordered. dsf 12:43 CBC with Diff Reviewed. ml 12:43 MED Profile Reviewed. ml 12:43 CIP Reviewed. ml 12:43 Troponin Reviewed. ml 12:43 TSH with Free T4 Reviewed. ml 12:43 CT Head Without Contrast Reviewed. ml 12:43 CT Spine,Cervical W/o Contrast Reviewed. ml 12:49 BED REQUEST+ADM ordered. EDMS 13:18 PHYSICAL THERAPY EVAL & TREAT ordered. EDMS 13:19 Admission / Observation Status ordered. EDMS 13:19 ECHOCARD,DOPPLER/COLOR FLOW ordered. EDMS 13:19 ELECTROCARDIOGRAM ADULT ordered. EDMS 13:19 CONSISTENT CARBOHYDRATES ordered. EDMS 14:55 amLODIPine 10 mg PO once; ADMISSION ORDER ordered. dsf 14:55 Labetalol 10 mg IVP at bolus once over 2 mins; ADMISSION ORDER ordered. dsf 15:38 Written Provider Order was scanned into [employer] and attached to record. lbd 17:43 Fingerstick Blood Sugar Ordered. EDMS 22:17 URINALYSIS Ordered. EDMS 10/28 09:55 T-Sheet-- Draft Copy was scanned into [employer] and attached to record. gb 12:00 T-Sheet-- Draft Copy was scanned into [employer] and attached to record. gb Administered Medications: 10/27 12:43 Drug: Lidocaine-Epinephrine 2 %-1:100,000 10 ml {Note: administered by Dr. Fish .} dsf Route: Infiltration; 14:54 Drug: amLODIPine 10 mg [amlodipine 5 mg tablet (2 tabs)] Route: PO; dsf 14:54 Drug: Labetalol 10 mg [labetalol 5 mg/mL intravenous solution (2 mL)] Route: IVP; Rate: dsf bolus; Infused Over: 2 mins; Site: right antecubital; Critical Care Time: 12:53 Critical care time: Bedside Care: 90 minutes, Consultation: 10 minutes. Total time: 100 ml minutes Signatures: Dispatcher [employer] EDMS Indio Ortiz MD MD ml Skylar Gonzalez, Elect Equip Maint Eng Unit lbd Evaristo Villanueva RN RN cz Mary Kay Olson, Reg Reg gb Saundra Peña, Reg Reg lg Chriss Bardales RN RN mlb1 Heather Bell, Elect Equip Maint Eng Unit ml3 Caitlyn Abbott RN RN dsf The chart was reviewed and I authenticate all verbal orders and agree with the evaluation and treatment provided.Corrections: (The following items were deleted from the chart) 21:24 13:18 URINALYSIS ordered. [facility] EDNE Attachments: 11:19 [facility] Payment Agreement lg 15:38 Written Provider Order lbd 12:00 T-Sheet-- Draft Copy gb Chart Complete MTDD
--- NOTE | 2016-10-30 05:02 | EDDOCDS ---
Physician Documentation [facility] Name: Brian Aguirre Age: 76 yrs Sex: Male : 1940 Arrival Date: 10/27/2016 Time: 10:19 Bed Admit Hold Private MD: Matthew Muse R. Disposition: 10/27 12:53 Critical Care:. ml Disposition: 10/27/16 12:53 Hospitalization ordered by Zhanna Burnette for Inpatient Admission. Preliminary diagnosis are Syncope and collapse, Fall (on) (from) other stairs and steps, Laceration of muscle and tendon of head. - Bed requested for PCU. - Status is Inpatient Admission. cz - Condition is Stable. - Problem is new. - Symptoms are unchanged. Historical: - Allergies: no known allergies; - Home Meds: 1. metformin 1,000 mg Oral tab 1 tab 2 times per day 2. lisinopril 20 mg Oral tab 1 tab once daily 3. aspirin 81 mg Oral TbEC 1 tab once daily 4. simvastatin 40 mg Oral tab 1 tab once daily 5. vit B injection monthly 6. Vitamin D Oral 1000 unit daily - PMHx: Diabetes - NIDDM: controlled; Hypercholesterolemia; Hypertension; Vertigo; - PSHx: 3 stents placed in right leg; - Social history: Smoking status: Patient states former smoker of tobacco. No barriers to communication noted, The patient speaks fluent Gabonese, Speaks appropriately for age. - : The pt / caregiver states he / she is not on anticoagulants. Home medication list is obtained from the patient. - Exposure Risk Screening:: None identified. Vital Signs: 10:21 BP 210 / 99; Pulse 111; Resp 16; Temp 97.9(O); Pulse Ox 96% ; Weight 81.65 kg / 180.01 cmb lbs; Height 5 ft. 6 in. (167.64 cm); Pain 0/10; 10:47 BP 174 / 70 LA (man/); mlb1 10:50 BP 173 / 84 (auto/); dsf 10:53 Pulse 92 MON; Pulse Ox 96% ; dsf 10:55 Pulse 92 MON; Pulse Ox 95% ; dsf 11:05 BP 198 / 91 (auto/); dsf 11:07 Pulse 90 MON; Pulse Ox 95% ; dsf 11:18 BP 180 / 79 (auto/); dsf 11:18 Pulse 84 MON; Pulse Ox 93% ; dsf 11:20 BP 175 / 82 (auto/); dsf 11:21 Pulse 82 MON; Pulse Ox 93% ; dsf 11:35 BP 176 / 82 (auto/); dsf 11:36 Pulse 82 MON; Pulse Ox 92% ; dsf 11:50 BP 195 / 88 (auto/); dsf 11:50 Pulse 82 MON; Pulse Ox 94% ; dsf 11:59 Pulse 80 MON; dsf 11:59 BP 173 / 81 (auto/); dsf 12:00 Pulse 82 MON; dsf 12:00 BP 171 / 81 (auto/); dsf 12:00 BP 167 / 80 (auto/); dsf 12:04 Pulse 84 MON; dsf 12:05 BP 175 / 83 (auto/); dsf 12:06 BP 173 / 81 Supine; Pulse 82; dsf 12:06 BP 171 / 81 Sitting; Pulse 82; dsf 12:06 BP 167 / 80 Standing; Pulse 92; dsf 12:19 Pulse 84 MON; dsf 12:20 BP 172 / 82 (auto/); dsf 12:35 BP 171 / 79 (auto/); dsf 12:35 Pulse 88 MON; Pulse Ox 96% ; dsf 12:50 Pulse 86 MON; Pulse Ox 97% ; dsf 12:50 BP 168 / 78 (auto/); dsf 13:05 BP 156 / 67 (auto/); dsf 13:05 Pulse 82 MON; Pulse Ox 97% ; dsf 13:20 BP 182 / 106 (auto/); dsf 13:20 Pulse 86 MON; Pulse Ox 97% ; dsf 13:34 Pulse 82 MON; Pulse Ox 97% ; dsf 13:35 BP 168 / 79 (auto/); dsf 13:50 BP 163 / 77 (auto/); dsf 13:50 Pulse 80 MON; Pulse Ox 96% ; dsf 14:05 BP 172 / 78 (auto/); dsf 14:05 Pulse 88 MON; Pulse Ox 96% ; dsf 14:20 BP 169 / 84 (auto/); dsf 14:20 Pulse 84 MON; Pulse Ox 96% ; dsf 14:35 Pulse 78 MON; Pulse Ox 97% ; dsf 14:35 BP 169 / 77 (auto/); Resp 20; Temp 97.6(TE); Pain 3/10; dsf 14:46 BP 172 / 83 (auto/); dsf 14:46 Pulse 78 MON; Pulse Ox 96% ; dsf 14:50 BP 168 / 75 (auto/); dsf 14:50 Pulse 76 MON; Pulse Ox 96% ; dsf 15:05 BP 159 / 79 (auto/); dsf 15:05 Pulse 74 MON; Pulse Ox 94% ; dsf 15:20 BP 144 / 72 (auto/); dsf 15:20 Pulse 74 MON; Pulse Ox 94% ; dsf 15:35 BP 143 / 67 (auto/); dsf 15:35 Pulse 74 MON; Pulse Ox 96% ; dsf 15:50 Pulse 74 MON; Pulse Ox 95% ; mcp 15:50 BP 152 / 76 (auto/); mcp 16:05 BP 162 / 78 (auto/); mcp 16:05 Pulse 76 MON; Pulse Ox 96% ; mcp 16:20 BP 146 / 67 (auto/); mcp 16:20 Pulse 74 MON; Pulse Ox 96% ; mcp 16:35 BP 132 / 66 (auto/); mcp 16:35 Pulse 72 MON; Pulse Ox 96% ; mcp 16:50 BP 140 / 68 (auto/); mcp 16:50 Pulse 68 MON; Pulse Ox 95% ; mcp 17:05 BP 135 / 65 (auto/); mcp 17:05 Pulse 70 MON; Pulse Ox 96% ; mcp 17:20 BP 138 / 68 (auto/); mcp 17:20 Pulse 72 MON; Pulse Ox 95% ; mcp 10:21 Body Mass Index 29.05 (81.65 kg, 167.64 cm) cmb Fernandez Coma Score: 10:24 Eye Response: spontaneous(4). Verbal Response: oriented(5). Motor Response: obeys mlb1 commands(6). Total: 15. Procedures: 12:53 Laceration repair:. ml Laceration: 12:53 Wound Repair of 3cm ( 1.2in ) full thickness laceration to left parietal area. Linear ml shaped.. Minimal bleeding noted.. Distal neuro/vascular/tendon intact. Anesthesia: Local anesthetic administered with 3 mls of 1% lidocaine w/ Epi, 3 mls of 1% lidocaine w/ Epi. Wound prep: Moderate cleansing with hibiclenz by provider, Wound explored. Skin closed with 3 thin layer Jerome using Running sutures. Dressed with pressure dressing. Patient tolerated well. MDM: 10:54 CT Head Without Contrast Ordered. EDMS 10:54 CT Spine,Cervical W/o Contrast Ordered. EDMS 11:19 [facility] Payment Agreement was scanned into [employer] and attached to record. lg 11:40 Financial registration complete. lg 11:48 IV Saline Lock ordered. ml 11:48 Boat Loader Helper/Pulse Ox/q 15 min VS ordered. ml 11:48 Rhythm Strip to chart ordered. ml 11:48 Undress patient appropriately for examination ordered. ml 11:48 Orthostatic VS ordered. ml 11:48 Misc. Nursing Order ordered. ml 11:50 CBC with Diff Ordered. EDMS 11:50 MED Profile Ordered. EDMS 11:50 CIP Ordered. EDMS 11:50 Troponin Ordered. EDMS 11:50 TSH with Free T4 Ordered. EDMS 11:50 Chest, 1 View Ordered. EDMS 11:50 ECG WITH READING ER PHYS+CARDIAG ordered. EDMS 12:43 Lidocaine-Epinephrine 2 %-1:100,000 10 ml Infiltration once; to bedside ordered. dsf 12:43 CBC with Diff Reviewed. ml 12:43 MED Profile Reviewed. ml 12:43 CIP Reviewed. ml 12:43 Troponin Reviewed. ml 12:43 TSH with Free T4 Reviewed. ml 12:43 CT Head Without Contrast Reviewed. ml 12:43 CT Spine,Cervical W/o Contrast Reviewed. ml 12:49 BED REQUEST+ADM ordered. EDMS 13:18 PHYSICAL THERAPY EVAL & TREAT ordered. EDMS 13:19 Admission / Observation Status ordered. EDMS 13:19 ECHOCARD,DOPPLER/COLOR FLOW ordered. EDMS 13:19 ELECTROCARDIOGRAM ADULT ordered. EDMS 13:19 CONSISTENT CARBOHYDRATES ordered. EDMS 14:55 amLODIPine 10 mg PO once; ADMISSION ORDER ordered. dsf 14:55 Labetalol 10 mg IVP at bolus once over 2 mins; ADMISSION ORDER ordered. dsf 15:38 Written Provider Order was scanned into [employer] and attached to record. lbd 17:43 Fingerstick Blood Sugar Ordered. EDMS 22:17 URINALYSIS Ordered. EDMS 10/28 09:55 T-Sheet-- Draft Copy was scanned into [employer] and attached to record. gb 12:00 T-Sheet-- Draft Copy was scanned into [employer] and attached to record. gb Administered Medications: 10/27 12:43 Drug: Lidocaine-Epinephrine 2 %-1:100,000 10 ml {Note: administered by Dr. Fish .} dsf Route: Infiltration; 14:54 Drug: amLODIPine 10 mg [amlodipine 5 mg tablet (2 tabs)] Route: PO; dsf 14:54 Drug: Labetalol 10 mg [labetalol 5 mg/mL intravenous solution (2 mL)] Route: IVP; Rate: dsf bolus; Infused Over: 2 mins; Site: right antecubital; Critical Care Time: 12:53 Critical care time: Bedside Care: 90 minutes, Consultation: 10 minutes. Total time: 100 ml minutes Signatures: Dispatcher [employer] EDMS Indio Ortiz MD MD ml Skylar Gonzalez, Manufacturers Service Representative Unit lbd Evaristo Villanueva RN RN cz Mary Kay Olson, Reg Reg gb Saundra Peña, Reg Reg lg Chriss Bardales RN RN mlb1 Heather Bell, Manufacturers Service Representative Unit ml3 Caitlyn Abbott RN RN dsf The chart was reviewed and I authenticate all verbal orders and agree with the evaluation and treatment provided.Corrections: (The following items were deleted from the chart) 21:24 13:18 URINALYSIS ordered. [facility] EDCT Attachments: 11:19 [facility] Payment Agreement lg 15:38 Written Provider Order lbd 12:00 T-Sheet-- Draft Copy gb Chart Complete MTDD
== END 2016-10-29 14:51 | disposition home or self-care (01) ==
LOC: M ED 10:19 → INTOOBSV 13:14 → M ED INP 13:14 → M PCU 10-28 03:39
PROVIDERS: ADMIT General Practice; ATTEND Internal Medicine
DX: S06.9X9A Unspecified intracranial injury with loss of consciousness of unspecified duration, initial encounter (principal); S01.01XA Laceration without foreign body of scalp, initial encounter; W00.1XXA Fall from stairs and steps due to ice and snow, initial encounter; Y92.89 Other specified places as the place of occurrence of the external cause; Y93.89 Activity, other specified; Y99.0 Civilian activity done for income or pay; N17.9 Acute kidney failure, unspecified; I10 Essential (primary) hypertension; E11.9 Type 2 diabetes mellitus without complications; E78.00 Pure hypercholesterolemia, unspecified; I73.9 Peripheral vascular disease, unspecified; R42 Dizziness and giddiness; Z79.899 Other long term (current) drug therapy; Z79.82 Long term (current) use of aspirin; Z79.84 Long term (current) use of oral hypoglycemic drugs; Z87.891 Personal history of nicotine dependence
CPT/HCPCS: 12032; 36415; 70450; 71010; 72125; 80048; 81001; 82550; 82553; 84439; 84443; 84484; 85025; 85027; 93005; 93041; 93306; 96374; 97161; 99284; G0378

== ENCOUNTER → 2019-08-06 | Outpatient (REF) | payer MEDICARE ==
[~2019-08-06] MED LIST changes: +CYAN100049 PO; +LEVA1TAB2 PO; -LEVA500T PO; -METF1000 PO; +METF10004 PO; +PRED-351 PO; -PRED10TA PO; +SYST1SOL OU
== END ==
LOC: M SFHCPLAZ 10:04
PROVIDERS: ATTEND Dermatology
DX: D04.30 Carcinoma in situ of skin of unspecified part of face (principal); L57.0 Actinic keratosis

== ENCOUNTER → 2019-12-31 | Outpatient (REF) | payer MEDICARE | LOC: M LAB REF 10:36 | PROVIDERS: ATTEND Dermatology | DX: L90.5 Scar conditions and fibrosis of skin (principal) ==

== ENCOUNTER → 2020-02-18 | Outpatient (REF) | payer MEDICARE ==
[2020-02-18 10:24] LABS: HEMOGLOBIN A1c 7.8 %
== END ==
LOC: M SFHCPLAZ 08:22
PROVIDERS: ATTEND Physician Assistant
DX: E11.51 Type 2 diabetes mellitus with diabetic peripheral angiopathy without gangrene (principal)

== ENCOUNTER → 2021-02-24 | Outpatient (REF) | payer MEDICARE ==
[~2021-02-24] MED LIST changes: +ASPI-569 PO; -ASPI81TAEC PO; -LISI-538 PO; +LISI20TA33 PO
[2021-02-24 18:20] LABS: HEMOGLOBIN A1c 7.4 %
[2021-02-24 18:33] LABS: ALBUMIN 3.9 GM/DL (3.2-5.2); BILIRUBIN,TOTAL 0.6 MG/DL (0.2-1.0); CALCIUM LEVEL 9.1 MG/DL (8.8-10.2); CHOLESTEROL RISK RATIO 3.357 (<5); CREATININE FOR GFR 1.25 MG/DL (0.70-1.30); GLOMERULAR FILTRATION RATE 58.9 (>35); POTASSIUM SERUM 4.5 MEQ/L (3.5-5.1); TOTAL PROTEIN 6.9 GM/DL (6.4-8.2)
[2021-02-24 18:46] LABS: CREATININE, URINE 90.5 MG/DL; MALB URINE SIEMENS 56.9 MG/L; MAU/CREAT RATIO 62.8 MCG/MG (0.0-30.0)
== END ==
LOC: M PLALAB 14:23
PROVIDERS: ATTEND Physician Assistant
DX: E11.51 Type 2 diabetes mellitus with diabetic peripheral angiopathy without gangrene (principal); E78.2 Mixed hyperlipidemia

== ENCOUNTER 2021-03-23 10:18 | Inpatient (IN) | payer MEDICARE ==
[~2021-03-23] VITALS: Ht 167.6 cm; Wt 78.6 kg
[2021-03-23] MEDS ORDERED: ATOR40TA75 PO (10:25)
[2021-03-23] MEDS: SUCRALFATE 1 GM TAB PO SCH ×2 (12:00→18:53)
[2021-03-23] MEDS ORDERED: PANTOPRAZOLE 40MG VIAL (C9113 PER 1) IV ONE (13:05)
[2021-03-23] MEDS ORDERED: PANTOPRAZOLE SODIUM 40 MG in D5W 50 ML IV SCH (13:05)
[2021-03-23] MEDS ORDERED: PENT400T22 PO (13:09)
[2021-03-23 13:18] LABS: BASO % 0.4 % (0.0-1.0); EOS # 0.1 10^3/uL (0.0-0.5); EOS % 1.1 % (0.0-3.0); HEMATOCRIT 37.8 % (42.0-52.0); HEMOGLOBIN 12.3 g/dl (13.5-17.5); LYMPH # 1.5 10^3/uL (1.5-5.0); LYMPH % 19.1 % (24.0-44.0); MEAN CORPUSCULAR HEMOGLOBIN 30.7 pg (27.0-33.0); MEAN CORPUSCULAR HGB CONC 32.5 g/dl (32.0-36.5); MEAN CORPUSCULAR VOLUME 94.3 fl (80.0-96.0); MONO # 0.9 10^3/uL (0.0-0.8); MONO % 10.8 % (2.0-8.0); NEUTROPHILS # 5.5 10^3/uL (1.5-8.5); NEUTROPHILS % 68.4 % (36.0-66.0); PLATELET COUNT, AUTOMATED 293 10^3/uL (150-450); RED BLOOD COUNT 4.01 10^6/uL (4.30-6.10); WHITE BLOOD COUNT 8.1 10^3/uL (4.0-10.0)
[2021-03-23 13:46] LABS: BLOOD UREA NITROGEN 21 MG/DL (7-18); CALCIUM LEVEL 9.8 MG/DL (8.8-10.2); CARBON DIOXIDE LEVEL 22 MEQ/L (21-32); CHLORIDE LEVEL 108 MEQ/L (98-107); CK-MB VALUE MASS 2.3 NG/ML (<3.6); CPK CREATINE PHOSPHOKINASE 98 U/L (39-308); CREATININE FOR GFR 1.27 MG/DL (0.70-1.30); GLOMERULAR FILTRATION RATE 57.8 (>35); GLUCOSE, FASTING 114 MG/DL (70-100); MB/CK RELATIVE INDEX 2.35 (< OR =4); POTASSIUM SERUM 5.1 MEQ/L (3.5-5.1); SODIUM LEVEL 139 MEQ/L (136-145); TROPONIN I < 0.02 NG/ML (< 0.10)
--- NOTE | 2021-03-23 14:08 | REP ---
INDICATION: UGI bleed. COMPARISON: Multiple latest 10/27/2016 also portable TECHNIQUE: Portable FINDINGS: The technique utilized in obtaining the radiograph has magnified the cardiac silhouette and attenuated the interstitial markings. The cardiomediastinal silhouette is within normal limits. The lung singletary are clear and the pleural angles are sharp. The osseous structures stable. IMPRESSION: No evidence of acute cardiopulmonary disease or significant change. <Electronically signed by Edgardo Gonzalez > 03/23/21 [id number]
[2021-03-23] MEDS ORDERED: D31000TA2 PO (14:09)
[2021-03-23] MEDS ORDERED: ACETAMINOPHEN TAB 650MG DOSE (2X325MG) PO PRN (14:25)
--- NOTE | 2021-03-23 14:42 | HPEPDOC ---
General Date of Admission 03/23/21 Date of Service: Mar 23, 2021 Chief Complaint The patient is a 80-year-old male admitted with a reason for visit of Stool Problems. Source: Patient Exam Limitations: No limitations History of Present Illness Patient is diabetes, hypertension, hypercholesterolemia, vertigo, peripheral vascular disease with stents placed in 2014 to the right leg at [facility] in [place], [place] presented to the hospital with history of black stool. Patient stated that for past few days he has been noticed black stool celeste ry bowel movement. Of note patient takes aspirin 81 mg on daily basis. Patient denied any red blood in the stool. Patient reported that he never had colonoscopy or endoscopy before. In ER patient was found to have hemoglobin 12.3, potassium 5.1, creatinine 1.2, negative troponin. Chest x-ray without evidence of acute cardiopulmonary diseases. Stool for occult blood was positive in ER. Home Medications Scheduled Aspirin (Aspirin EC) 81 Mg Tabec, 81 MG PO DAILY, (Reported) Atorvastatin Calcium (Atorvastatin Calcium) 40 Mg Tablet, 40 MG PO QPM, (Reported) Cholecalciferol (Vitamin D3) (Vitamin D3) 1,000 Unit Tablet, 1,000 UNITS PO DAILY, (Reported) Cyanocobalamin (Vitamin B-12) (Vitamin B-12) 1,000 Mcg Tab, 1,000 MCG PO DAILY, (Reported) Lisinopril (Lisinopril) 20 Mg Tab, 20 MG PO DAILY, (Reported) Metformin HCl (Metformin HCl) 1,000 Mg Tab, 1,000 MG PO BID, (Reported) Pentoxifylline (Pentoxifylline) 400 Mg Tablet.er, 400 MG PO BID, (Reported) Propylene Glycol/Peg 400 (Systane 0.3-0.4% Eye Drops) 15 Ml Anjelica, 1 DROP OU NOEMI LY, (Reported) Scheduled PRN Propylene Glycol/Peg 400 (Systane 0.3-0.4% Eye Drops) 15 Ml Anjelica, 1 DROP OU PRN PRN for DRY EYES, (Reported) Allergies Coded Allergies: No Known Drug Allergies (Verified Allergy, Unknown, 03/23/21) Past Medical History Medical History 1. Diabetes. 2. Hypercholesterolemia. 3. Hypertension. 4. Vertigo. 5. Peripheral arterial disease with right leg stents placed at [facility] in 2014. Surgical History Three stents placed in the right leg. Family History I personally reviewed family history and found not pertinent Social History * Smoker: former Smoker Alcohol: Denies Drugs: denies A-FIB/CHADSVASC A-FIB History Current/History of A-Fib/PAF?: No Current PO Anticoag Therapy: No Review of Systems Constitutional: Denies: Chills Eyes: Denies: Pain ENT: Denies: Head Aches Skin: Denies: Rash, Lesions Pulmonary: Denies: Dyspnea Cardiovascular: Denies: Chest Pain Gastrointestinal: Denies: Nausea, Vomiting Genitourinary: Denies: Dysuria, Frequency Hematologic: Denies: Bruising Endocrine: Denies: Polydipsia, Polyphagia Musculoskeletal: Denies: Neck Pain Neurological: Denies: Weakness Psych: Reports: Mood Normal Physical Examination General Exam: Positive: Alert, Cooperative Eye Exam: Positive: PERRLA ENT Exam: Positive: Atraumatic Neck Exam: Positive: Supple; Negative: JVD Chest Exam: Negative: Clear to auscultation Heart Exam: Positive: Rate Normal Telemetry: Positive: No significant arrhythmia Abdomen Exam: Positive: Normal bowel sounds Extremity Exam: Negative: Clubbing Skin Exam: Positive: Nl turgor and temperature Neuro Exam: Positive: Strength at 5/5 X4 ext Psych Exam: Positive: Mental status NL Vital Signs Vital Signs Date Time Temp Pulse Resp B/P (MAP) Pulse Ox O2 Delivery O2 Flow Rate FiO2 03/23/21 13:03 03/23/21 10:19 97.4 87 17 97 Room Air Laboratory Data Labs 24H Laboratory Tests 2 03/23/21 13:01: Immature Granulocyte % (Auto) 0.2, Neutrophils (%) (Auto) 68.4H, Lymphocytes (%) (Auto) 19.1L, Monocytes (%) (Auto) 10.8H, Eosinophils (%) (Auto) 1.1, Basophils (%) (Auto) 0.4, Neutrophils # (Auto) 5.5, Lymphocytes # (Auto) 1.5, Monocytes # (Auto) 0.9H, Eosinophils # (Auto) 0.1, Basophils # (Auto) 0.0, Nucleated Red Blood Cells % (auto) 0.0 03/23/21 13:02: Anion Gap 9, Glomerular Filtration Rate 57.8, Calcium Level 9.8, Total Creatine Kinase 98, Creatine Kinase MB 2.3, Creatine Kinase MB Relative Index 2.35, Troponin I < 0.02 03/23/21 14:03: CBC/BMP Laboratory Tests 03/23/21 13:01 03/23/21 13:02 Assessment/Plan Patient is diabetes, hypertension, hypercholesterolemia, vertigo, peripheral vascular disease with stents placed in 2014 to the right leg at [facility] in [place], [place] presented to the hospital with history of black stool. Patient stated that for past few days he has been noticed black stool every bowel movement. Of note patient takes aspirin 81 mg on daily basis. Patient denied any red blood in the stool. Patient reported that he never had colonoscopy or endoscopy before. In ER patient was found to have hemoglobin 12.3, potassium 5.1, creatinine 1.2, negative troponin. Chest x-ray without evidence of acute cardiopulmonary diseases. Stool for occult blood was positive in ER. Problems (1) UGI bleed Status: Acute Problem Text: Most likely upper GI bleed given history of black stool H&H every 6 hours aspirin on hold PPI IV Carafate Clear liquid diet for now (2) HTN (hypertension) Status: Acute Problem Text: His blood pressure was elevated when I saw him with systolic blood pressure 190 Lisinopril 20 mg once, we will recheck in 2 hours (3) CAD (coronary artery disease) Status: Acute Problem Text: Continue home meds (4) Diabetes Status: Chronic Problem Text: Insulin sliding scale ACHS (5) Hyperlipemia Status: Chronic Problem Text: Continue statin Plan / VTE VTE Prophylaxis Ordered?: Yes PRINCESS CHRISTOPHER DO Mar 23, 2021 14:42
[2021-03-23 14:56] LABS: RSV AMPLIFICATION NEGATIVE (NEGATIVE)
[2021-03-23] MEDS ORDERED: POLYVINYL ALCOHOL OPHTH SOLN 15 ML(LIQUITEARS) OU PRN (15:00)
[2021-03-23 17:21] VITALS: BP 236/70
[2021-03-23] MEDS ORDERED: CAPTOpril 6.25 MG PER 1/2 TABLET PO ONE (17:35)
[2021-03-23] MEDS ORDERED: hydrALAZINE 20MG/ML 1ML VIAL (J0360 PER 20MG) IV PRN (17:35)
[2021-03-23 18:03] VITALS: BP 190/70
[2021-03-23 18:26] VITALS: BP 178/80
[2021-03-23] MEDS ORDERED: GLUCAGON INJ 1MG VIAL SC PRN (18:45)
[2021-03-23] MEDS ORDERED: DEXTROSE 50% 50 ML SYRINGE IV PRN (18:45)
[2021-03-23] MEDS ORDERED: GLUCOSE 4GM CHEW TABLET PO PRN (18:45)
[2021-03-23 18:48] LABS: HEMATOCRIT 37.1 % (42.0-52.0); HEMOGLOBIN 12.3 g/dl (13.5-17.5)
[2021-03-23] MEDS: PANTOPRAZOLE 40MG VIAL (C9113 PER 1) IV SCH (18:53)
[2021-03-23 20:00] VITALS: BP 172/74
[2021-03-23] MEDS: PENTOXIFYLLINE 400 MG TAB PO SCH (20:45)
[2021-03-23] MEDS ORDERED: HumaLOG INSULIN (NovoLOG) PER UNIT SC SCH (21:00)
[2021-03-23] MEDS ORDERED: ATORVASTATIN 20 MG TAB PO SCH (21:00)
[2021-03-23] MEDS ORDERED: SLF 3 ML SYR IV PRN (21:55)
[2021-03-23 22:00] VITALS: BP 147/70
[2021-03-23] MEDS: SLF 3 ML SYR IV SCH (22:21)
[2021-03-24] MEDS: SUCRALFATE 1 GM TAB PO SCH ×3 (00:19→12:43)
[2021-03-24 00:23] LABS: HEMATOCRIT 33.3 % (42.0-52.0); HEMOGLOBIN 10.9 g/dl (13.5-17.5)
--- NOTE | 2021-03-24 05:21 | ECGEPIP ---
[facility] - ED Test Date: 2021-03-23 Pat Name: CODIE SANCHEZ Department: Room: - Gender: Male Medical Office Supervisor: VC : 1940 Requested By: Miguelangel Charles Order Number: [id number] Reading MD: Lauri Suarez Measurements Intervals [place] Rate: 80 P: 67 MI: 136 QRS: 73 QRSD: 128 T: 10 QT: 384 QTc: 442 Interpretive Statements Sinus rhythm with marked sinus arrhythmia Right bundle branch block- new from tracing done 10-28-16 Electronically Signed on 03-24-2021 5:21:38 EDT by Lauri Suarez
--- NOTE | 2021-03-24 05:35 | ECGEPIP ---
[facility] - ED Test Date: 2021-03-23 Pat Name: CODIE SANCHEZ Department: Room: [facility] Gender: Male Sapphire Stylus Grinder: ISAÍAS : 1940 Requested By: Miguelangel Charles Order Number: [id number] Reading MD: Lauri Suarez Measurements Intervals [place] Rate: 76 P: 65 NM: 142 QRS: 64 QRSD: 128 T: 2 QT: 420 QTc: 472 Interpretive Statements Sinus rhythm with premature atrial complexes Right bundle branch block Similar to tracing done 11:46 on same date Electronically Signed on 03-24-2021 5:35:06 EDT by Lauri Suarez
[2021-03-24 05:55] LABS: HEMATOCRIT 32.9 % (42.0-52.0); HEMOGLOBIN 10.8 g/dl (13.5-17.5); MEAN CORPUSCULAR HEMOGLOBIN 30.7 pg (27.0-33.0); MEAN CORPUSCULAR HGB CONC 32.8 g/dl (32.0-36.5); MEAN CORPUSCULAR VOLUME 93.5 fl (80.0-96.0); PLATELET COUNT, AUTOMATED 257 10^3/uL (150-450); RED BLOOD COUNT 3.52 10^6/uL (4.30-6.10); WHITE BLOOD COUNT 7.2 10^3/uL (4.0-10.0)
[2021-03-24 06:00] VITALS: BP 122/58
[2021-03-24] MEDS: PANTOPRAZOLE 40MG VIAL (C9113 PER 1) IV SCH (06:14)
[2021-03-24] MEDS: SLF 3 ML SYR IV SCH (06:14)
[2021-03-24 06:25] LABS: ALBUMIN 3.5 GM/DL (3.2-5.2); ALT/SGPT 19 U/L (12-78); BILIRUBIN,TOTAL 0.8 MG/DL (0.2-1.0); BLOOD UREA NITROGEN 17 MG/DL (7-18); CARBON DIOXIDE LEVEL 26 MEQ/L (21-32); CHLORIDE LEVEL 109 MEQ/L (98-107); GLOMERULAR FILTRATION RATE > 60.0 (>35); GLUCOSE, FASTING 141 MG/DL (70-100); MAGNESIUM LEVEL 1.7 MG/DL (1.8-2.4); POTASSIUM SERUM 4.5 MEQ/L (3.5-5.1); SODIUM LEVEL 140 MEQ/L (136-145); TOTAL PROTEIN 6.3 GM/DL (6.4-8.2)
[2021-03-24 07:33] VITALS: BP 141/64
[2021-03-24] MEDS ORDERED: VITAMIN D 1,000 INTERNATIONAL UNITS TABLET PO SCH (09:00)
[2021-03-24] MEDS ORDERED: ENOXAPARIN 40MG/0.4ML SYRINGE (J1650 PER 10MG) SC SCH (09:00)
[2021-03-24] MEDS ORDERED: POLYVINYL ALCOHOL OPHTH SOLN 15 ML(LIQUITEARS) OU SCH (09:00)
[2021-03-24] MEDS ORDERED: CYANOCOBALAMIN 500 MCG TAB PO SCH (09:00)
[2021-03-24] MEDS: HumaLOG INSULIN (NovoLOG) PER UNIT SC SCH ×2 (09:29→12:44)
[2021-03-24] MEDS: PENTOXIFYLLINE 400 MG TAB PO SCH (09:29)
[2021-03-24 09:30] VITALS: BP 141/64
[2021-03-24 12:00] VITALS: BP 157/71
[2021-03-24] MEDS ORDERED: OMEP40CA97 PO ×2 (12:28→13:28)
[2021-03-24] MEDS ORDERED: LISI20TA33 PO (12:28)
[2021-03-24] MEDS ORDERED: SUCR1TA PO (12:28)
[2021-03-24 12:45] LABS: HEMATOCRIT 33.4 % (42.0-52.0); HEMOGLOBIN 10.8 g/dl (13.5-17.5)
--- NOTE | 2021-03-24 18:56 | DS.PDOC ---
Discharge Summary General Date of Admission Mar 23, 2021 at 14:22 Date of Discharge 03/24/21 Discharge Summary PROCEDURES PERFORMED DURING STAY: [None]. ADMITTING DIAGNOSES: UGI bleed HTN (hypertension) CAD (coronary artery disease) Diabetes Hyperlipemia Acute blood loss anemia DISCHARGE DIAGNOSES: UGI bleed HTN (hypertension) CAD (coronary artery disease) Diabetes Hyperlipemia Acute blood loss anemia COMPLICATIONS/CHIEF COMPLAINT: Ugi Bleed. HISTORY OF PRESENT ILLNESS:Patient is diabetes, hypertension, hypercholesterolemia, vertigo, peripheral vascular disease with stents placed in 2014 to the right leg at [facility] in [place], [place] presented to the hospital with history of black stool. Patient stated that for past few days he has been noticed black stool every bowel movement. Of note patient takes aspirin 81 mg on daily basis. Patient denied any red blood in the stool. Mer ventura reported that he never had colonoscopy or endoscopy before. In ER patient was found to have hemoglobin 12.3, potassium 5.1, creatinine 1.2, negative troponin. Chest x-ray without evidence of acute cardiopulmonary diseases. Stool for occult blood was positive in ER. HOSPITAL COURSE: During hospital stay following issues addressed Most likely upper GI bleed given history of black stool/acute blood loss anemia aspirin on hold Patient received PPI IV Carafate Dr. Butler recommended to discharge patient with follow-up with him for endoscopy and colonoscopy in the outpatient settings (2) HTN (hypertension) His blood pressure was elevated when I saw him with systolic blood pressure 190 Stabilized after lisinopril (3) CAD (coronary artery disease) Continue home meds (4) Diabetes Insulin sliding scale ACHS (5) Hyperlipemia Continue statin DISCHARGE MEDICATIONS: Please see below. ALLERGIES: Please see below. PHYSICAL EXAMINATION ON DISCHARGE: VITAL SIGNS: Please see below. Objective: GENERAL APPEARANCE: NAD HEENT: no scleral icterus, no JVD, EOMI CARDIOVASCULAR: S1S2 LUNGS: CTA ABDOMEN: soft & not tender w palpitation MUSCULOSKELETAL: no cyanosis, no swelling INTEGUMENT: no generalized pallor NEUROLOGICAL: cranial nerve function from 2-12 intact intact, follows commands, speech not dysarthric LABORATORY DATA: Please see below. IMAGING: INDICATION: UGI bleed. COMPARISON: Multiple latest 10/27/2016 also portable TECHNIQUE: Portable FINDINGS: The technique utilized in obtaining the radiograph has magnified the cardiac silhouette and attenuated the interstitial markings. The cardiomediastinal silhouette is within normal limits. The lung singletary are clear and the pleural angles are sharp. The osseous structures stable. IMPRESSION: No evidence of acute cardiopulmonary disease or significant change. PROGNOSIS: Fair ACTIVITY: [As tolerated]. DIET: Cardiac/diabetes DISCHARGE PLAN: Follow-up with Dr. Butler and PCP DISPOSITION: Home, Self-Care. DISCHARGE CONDITION: [Stable]. TIME SPENT ON DISCHARGE: 40minutes. Vital Signs/I&Os Vital Signs Date Time Temp Pulse Resp B/P (MAP) Pulse Ox O2 Delivery O2 Flow Rate FiO2 03/24/21 12:00 98.0 74 18 157/71 (99) 97 Room Air I&O- Last 24 Hours up to 6 AM 03/24/21 06:00 Intake Total 645 ml Output Total 1850 ml Balance -1205 ml Laboratory Data Labs 24H Laboratory Tests 2 03/23/21 20:32: Bedside Glucose (Misc Panel) 227H 03/24/21 05:15: Nucleated Red Blood Cells % (auto) 0.0, Anion Gap 5L, Glomerular Filtration Rate > 60.0, Calcium Level 9.0, Magnesium Level 1.7L, Total Bilirubin 0.8, Aspartate Amino Transf (AST/SGOT) 11, Alanine Aminotransferase (ALT/SGPT) 19, Alkaline Phosphatase 76, Total Protein 6.3L, Albumin 3.5, Albumin/Globulin Ratio 1.3 03/24/21 12:37: Bedside Glucose (Misc Panel) 226H CBC/BMP Laboratory Tests 03/24/21 00:08 03/24/21 05:15 03/24/21 12:30 FSBS Laboratory Tests Test 03/23/21 20:32 03/24/21 12:37 Range/Units Bedside Glucose (Misc Panel) 227 226 83-110 MG/DL Discharge Medications Scheduled Aspirin (Aspirin EC) 81 Mg Tabec, 81 MG PO DAILY, (Reported) Atorvastatin Calcium (Atorvastatin Calcium) 40 Mg Tablet, 40 MG PO QPM, (Reported) Cholecalciferol (Vitamin D3) (Vitamin D3) 1,000 Unit Tablet, 1,000 UNITS PO DAILY, (Reported) Cyanocobalamin (Vitamin B-12) (Vitamin B-12) 1,000 Mcg Tab, 1,000 MCG PO DAILY, (Reported) Lisinopril (Lisinopril) 20 Mg Tab, 20 MG PO BID Metformin HCl (Metformin HCl) 1,000 Mg Tab, 1,000 MG PO BID, (Reported) Omeprazole (Omeprazole) 40 Mg Capsule.dr, 40 MG PO DAILY Pentoxifylline (Pentoxifylline) 400 Mg Tablet.er, 400 MG PO BID, (Reported) Propylene Glycol/Peg 400 (Systane 0.3-0.4% Eye Drops) 15 Ml Anjelica, 1 DROP OU DAILY, (Reported) Sucralfate (Sucralfate) 1 Gm Tablet, 1 GM PO Q6H Scheduled PRN Propylene Glycol/Peg 400 (Systane 0.3-0.4% Eye Drops) 15 Ml Anjelica, 1 DROP OU PRN PRN for DRY EYES, (Reported) Allergies Coded Allergies: No Known Drug Allergies (Verified Allergy, Unknown, 03/23/21) PRINCESS CHRISTOPHER Mar 24, 2021 18:56
== END 2021-03-24 15:13 | disposition home or self-care (01) | DRG 378 ==
LOC: M ED 10:18 → M ED INP 14:22 → ENRESERV 16:13 → M MSPAV 17:29 → M PCU 18:00
PROVIDERS: ADMIT Internal Medicine; ATTEND Internal Medicine
DX: K92.2 Gastrointestinal hemorrhage, unspecified (principal); D62 Acute posthemorrhagic anemia; I10 Essential (primary) hypertension; E11.51 Type 2 diabetes mellitus with diabetic peripheral angiopathy without gangrene; E78.5 Hyperlipidemia, unspecified; R42 Dizziness and giddiness; I25.10 Atherosclerotic heart disease of native coronary artery without angina pectoris; Z95.820 Peripheral vascular angioplasty status with implants and grafts; Z79.82 Long term (current) use of aspirin; Z79.84 Long term (current) use of oral hypoglycemic drugs; Z79.899 Other long term (current) drug therapy; Z87.891 Personal history of nicotine dependence

== ENCOUNTER → 2021-04-06 | Outpatient (REF) | payer MEDICARE ==
[~2021-04-06] MED LIST changes: +ATOR40TA75 PO; +D31000TA2 PO; +OMEP40CA4 PO; +PENT400T22 PO; +SUCR1TA PO
[2021-04-06 11:54] LABS: HEMATOCRIT 33.1 % (42.0-52.0); HEMOGLOBIN 10.4 g/dl (13.5-17.5); MEAN CORPUSCULAR HEMOGLOBIN 30.1 pg (27.0-33.0); MEAN CORPUSCULAR HGB CONC 31.4 g/dl (32.0-36.5); MEAN CORPUSCULAR VOLUME 95.7 fl (80.0-96.0); PLATELET COUNT, AUTOMATED 341 10^3/uL (150-450); RED BLOOD COUNT 3.46 10^6/uL (4.30-6.10); WHITE BLOOD COUNT 8.6 10^3/uL (4.0-10.0)
[2021-04-06 12:35] LABS: CALCIUM LEVEL 9.5 MG/DL (8.8-10.2); CREATININE FOR GFR 1.3 MG/DL (0.70-1.30); GLOMERULAR FILTRATION RATE 56.3 (>35); POTASSIUM SERUM 4.3 MEQ/L (3.5-5.1)
== END ==
LOC: M SFHCPLAZ 08:55
PROVIDERS: ATTEND Physician Assistant
DX: K92.2 Gastrointestinal hemorrhage, unspecified (principal)

== ENCOUNTER → 2021-04-22 | Outpatient (CLI) | payer MEDICARE ==
[~2021-04-22] MED LIST changes: +SUCR1TAB56 PO
== END ==
LOC: M LABSMTC 09:56
PROVIDERS: ATTEND Anesthesiology
DX: Z01.818 Encounter for other preprocedural examination (principal); Z11.52 Encounter for screening for COVID-19

== ENCOUNTER 2021-04-27 06:42 | Day surgery (SDC) | payer MEDICARE ==
[~2021-04-27] VITALS: Ht 167.6 cm; Wt 78.2 kg
[~2021-04-27 06:42] MED LIST changes: +NS 1,000 ML IV ONE
[2021-04-27] MEDS ORDERED: propofoL 200 MG/20 ML VIAL As Ordered ONE (07:20)
[2021-04-27] MEDS ORDERED: LIDOCAINE 2% 100MG/5ML SDV (FOR ANES.) As Ordered ONE (07:20)
[2021-04-27] MEDS ORDERED: fentaNYL 100 MCG/2 ML INJECTION As Ordered ONE (07:20)
[2021-04-27] MEDS ORDERED: LABETALOL 100MG/20ML VIAL As Ordered ONE (08:18)
[2021-04-27 09:20] VITALS: BP 162/81
[2021-06-19] MEDS ORDERED: OMEP40CA5 PO (18:34)
== END 2021-04-27 09:29 | disposition home or self-care (01) ==
LOC: M OPP 06:42
PROVIDERS: ATTEND Surgery
DX: K63.5 Polyp of colon (principal); K57.30 Diverticulosis of large intestine without perforation or abscess without bleeding; K62.1 Rectal polyp; K92.1 Melena; K31.89 Other diseases of stomach and duodenum; D13.2 Benign neoplasm of duodenum; Z79.82 Long term (current) use of aspirin; Z79.84 Long term (current) use of oral hypoglycemic drugs; Z79.899 Other long term (current) drug therapy
CPT/HCPCS: 43239; 45385; 88305; J3010

== ENCOUNTER → 2021-05-27 | Outpatient (CLI) | payer MEDICARE ==
[~2021-05-27] MED LIST changes: -NS 1,000 ML IV ONE
[2021-05-27 11:12] LABS: ALBUMIN 3.8 GM/DL (3.2-5.2); BILIRUBIN,TOTAL 0.6 MG/DL (0.2-1.0); CALCIUM LEVEL 9.6 MG/DL (8.8-10.2); CREATININE FOR GFR 1.47 MG/DL (0.70-1.30); GLOMERULAR FILTRATION RATE 48.8 (>35); MAGNESIUM LEVEL 1.8 MG/DL (1.8-2.4); POTASSIUM SERUM 4.7 MEQ/L (3.5-5.1); TOTAL PROTEIN 6.5 GM/DL (6.4-8.2)
[2021-05-27 11:18] LABS: FOLATE 11.2 NG/ML (>5.4)
== END ==
LOC: M PLALAB 08:01
PROVIDERS: ATTEND Nurse Practitioner Family
DX: R25.2 Cramp and spasm (principal)

== ENCOUNTER 2021-06-19 12:26 | Inpatient (IN) | payer MEDICARE ==
[~2021-06-19] VITALS: Ht 167.6 cm; Wt 84.0 kg
--- NOTE | 2021-06-19 14:48 | REP ---
INDICATION: cramping, hx of blockage/clot in past COMPARISON: None. TECHNIQUE: Real time compression and duplex Doppler interrogation of the bilateral lower extremity deep venous system is performed. Compression ultrasound is performed of the bilateral peroneal and posterior tibial veins. FINDINGS: Bilaterally, the common femoral, superficial femoral and popliteal veins are fully compressible with transducer pressure and demonstrate normal spontaneous and phasic flow, without evidence of deep venous thrombosis. No thrombus is seen in the bilateral visualized portions of the peroneal and posterior tibial veins, visualization is limited due to patient body habitus. IMPRESSION: No evidence of deep venous thrombosis of the bilateral lower extremity femoral popliteal venous system. <Electronically signed by Sergey Fish > 06/19/21 1150
[2021-06-19 15:42] LABS: MEAN CORPUSCULAR HGB CONC 28.4 g/dl (32.0-36.5); MEAN CORPUSCULAR VOLUME 84.6 fl (80.0-96.0); PLATELET COUNT, AUTOMATED 368 10^3/uL (150-450); RED BLOOD COUNT 2.46 10^6/uL (4.30-6.10); WHITE BLOOD COUNT 6.8 10^3/uL (4.0-10.0)
[2021-06-19 15:43] LABS: HEMATOCRIT 20.8 % (42.0-52.0)
[2021-06-19 15:45] LABS: HEMOGLOBIN 5.9 g/dl (13.5-17.5)
[2021-06-19] MEDS ORDERED: NS 500 ML IV ONE (16:35)
[2021-06-19 17:20] LABS: INR 1.11; PROTHROMBIN TIME 14.8 SECONDS (12.7-14.5)
[2021-06-19 17:21] LABS: PARTIAL THROMBOPLASTIN TIME 28.4 SECONDS (25.9-37.0)
[2021-06-19] MEDS ORDERED: GLUCAGON INJ 1MG VIAL SC PRN (18:20)
[2021-06-19] MEDS ORDERED: DEXTROSE 50% 50 ML SYRINGE IV PRN (18:20)
[2021-06-19] MEDS ORDERED: GLUCOSE 4GM CHEW TABLET PO PRN (18:20)
[2021-06-19 18:27] LABS: CALCIUM LEVEL 8.5 MG/DL (8.8-10.2); CREATININE FOR GFR 1.5 MG/DL (0.70-1.30); GLOMERULAR FILTRATION RATE 47.7 (>35); POTASSIUM SERUM 4.7 MEQ/L (3.5-5.1)
[2021-06-19] MEDS ORDERED: OMEP-221 PO (18:34)
[2021-06-19] MEDS ORDERED: LISI20TA33 PO (18:34)
[2021-06-19] MEDS ORDERED: HOME MED LIST COMPLETE! XX SCH (18:40)
[2021-06-19 18:56] VITALS: BP 176/84
[2021-06-19] MEDS ORDERED: POLYVINYL ALCOHOL OPHTH SOLN 15 ML(LIQUITEARS) OU PRN (19:15)
--- NOTE | 2021-06-19 19:32 | HPEPDOC ---
[facility] Medical History & Physical Date of Admission Jun 19, 2021 Date of Service: Jun 19, 2021 Attending Physician: REYNOLD PAINTING MD History and Physical CHIEF COMPLAINT: Leg cramping/pain HISTORY OF PRESENT ILLNESS: Mr. Aguirre is an 78 yo male with a h/o peripheral artery disease, vascular claudication, and bilateral iliac artery stent placement (01/2015) who presents to the ER with bilateral leg cramping and pain when walking about 50-75ft for the past 2 weeks. Patient reports pain only with exertion and was very pleasant. He denies SOB, CP, palpitations, nausea, vomiting, diarrhea, fever, or changes in weight. While in the ED, lab results showed Hgb 5.9 and blood (3 units) was ordered for transfusion. Upon speaking with the patient, patient did not complain of bleeding or abdominal pain but did mention a previous admission in 03/2021 for bloody stool. At the time, the patient was discharged with follow-up outpatient for EGD and colonoscopy. The patient's EGD showed erythematous mucosa in the duodenal bulb and a single submucosal nodule in the second portion of the duodenum. Biopsies of both specimens showed no signs of significant pathology. Colonoscopy showed 5 small polyps in the rectum which were completely resected by a hot snare. PAST MEDICAL HISTORY: - Peripheral artery disease (PAD) - H/o vascular claudication - GERD - CKD Stage IIIa - HTN - DM type II - Dyslipidemia PAST SURGICAL HISTORY: - Bilateral iliac artery stent placement in 01/2015; procedure performed at 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 REVIEW OF SYSTEMS: CONSTITUTIONAL: Denies fever, significant changes in weight. HEENT: Denies headaches, dysphagia. CARDIOVASCULAR: Denies CP, palpitations. RESPIRATORY: Denies SOB. GASTROINTESTINAL: Denies nausea, vomiting, diarrhea. GENITOURINARY: Denies changes in urinary frequency, burning or pain on urination. MUSCULOSKELETAL: Numbness or tingling in UE or LE bilaterally. NEUROLOGICAL: Alert, awake, and oriented. HOME MEDICATIONS: Please see below. PHYSICAL EXAMINATION: VITAL SIGNS: See below. GENERAL APPEARANCE: Patient appears younger than stated age, afebrile, and in no acute distress. HEENT: NC. AT. Mucous membranes moist. CARDIOVASCULAR: RRR. No murmurs, gallops, or rubs. 2+ radial pulses bilaterally. LUNGS: Clear to auscultation bilaterally. No wheezes, rales, or rhonchi. ABDOMEN: Soft, obese abdomen, bowel sounds present, non-tender to palpation in all 4 Q's. MUSCULOSKELETAL: Sensation intact in UE and LE bilaterally. Strength intact in UE bilaterally. EXTREMITIES: Non-tender to palpation in LE bilaterally. 2+ dorsalis pedis pulses bilaterally. No pitting edema bilaterally. NEUROLOGICAL: Alert, awake, and oriented. A&O X3. LABORATORY DATA: See below. IMAGING: Vascular US: "No evidence of deep venous thrombosis of the bilateral lower extremity femoral popliteal venous system." MICROBIOLOGY: Please see below. ASSESSMENT/PLAN: Mr. Aguirre is an 80 yo male with h/o PAD, vascular claudication, h/o bilateral iliac stent placement (01/2015), and GERD presenting with leg cramping and incidentally found to have decreased hemoglobin concerning for upper GI bleed. # Anemia secondary to possible Upper GI bleed - Patient's Hgb 5.9 - 3 units of packed RBCs ordered; will trend H&H - General surgery consulted and will reassess the patient tomorrow for possible endoscopy; we appreciate their input in the care of this patient. - IV PPI and sucralfate ordered. - Patient is on clear liquid diet. # PAD s/p bilateral iliac stent placement (01/2015) - Patient has a h/o PAD, vascular claudication, and h/o bilateral iliac stent placement (01/2015) - Bilateral LE arterial US ordered; Cr 1.5 and h/o CKD Stage IIIa. - Continue home pentoxifylline and aspirin. #GERD -continue home sucralfate, PPI added for UGIB # HTN - Lisinopril currently held. # DM type II - Insulin sliding scale ordered. - Home metformin currently held. # Dyslipidemia - Continue statin. DVT Prophylaxis: TEDs and sequentials. Vital Signs Vital Signs Date Time Temp Pulse Resp B/P (MAP) Pulse Ox O2 Delivery O2 Flow Rate FiO2 06/19/21 17:15 92 16 149/67 (94) 98 Room Air 9/3/21 12:47 97.6 Laboratory Data Labs 24H Laboratory Tests 2 06/19/21 15:23: Nucleated Red Blood Cells % (auto) 0.0 06/19/21 15:25: POC Glucose (Misc Panel) 140H, POC Sodium (Misc Panel) 143, POC Potassium (Misc Panel) 4.4, POC Chloride (Misc Panel) 110H, POC Total CO2 (Misc Panel) 18.0L, POC Blood Urea Nitrogen (Misc Panel 18, POC Ionized Calcium (Misc Panel) 5.0, POC Creatinine (Misc Panel) 1.6H, POC Hematocrit (Misc Panel) 21.0L 06/19/21 15:35: POC Lactate (Misc Panel) 2.19*H 06/19/21 16:40: Prothrombin Time 14.8H, Prothromb Time International Ratio 1.11, Activated Partial Thromboplast Time 28.4, Coronavirus (COVID-19)(PCR) NEGATIVE CBC/BMP Laboratory Tests 06/19/21 15:23 Home Medications Scheduled Aspirin (Aspirin EC) 81 Mg Tabec, 81 MG PO DAILY Atorvastatin Calcium (Atorvastatin Calcium) 40 Mg Tablet, 40 MG PO QHS Cholecalciferol (Vitamin D3) (Vitamin D3) 1,000 Unit Tablet, 1,000 UNITS PO BID Cyanocobalamin (Vitamin B-12) (Vitamin B-12) 1,000 Mcg Tab, 1,000 MCG PO DAILY Lisinopril (Lisinopril) 20 Mg Tablet, 20 MG PO DAILY Metformin HCl (Metformin HCl) 1,000 Mg Tab, 1,000 MG PO BID Omeprazole (Omeprazole) 40 Mg Capsule.dr, 40 MG PO DAILY Pentoxifylline (Pentoxifylline) 400 Mg Tablet.er, 400 MG PO BID Propylene Glycol/Peg 400 (Systane 0.3-0.4% Eye Drops) 15 Ml Anjelica, 1 DROP OU DAILY Sucralfate (Sucralfate) 1 Gm Tablet, 1 GM PO BID Scheduled PRN Propylene Glycol/Peg 400 (Systane 0.3-0.4% Eye Drops) 15 Ml Anjelica, 1 DROP OU PRN PRN for DRY EYES Allergies Coded Allergies: No Known Drug Allergies (Verified Allergy, Unknown, 04/22/21) GME ATTESTATION GME ATTESTATION My faculty preceptor for this patient encounter was physically present during the encounter and was fully available. All aspects of the patient interview, examination, medical decision making process, and medical care plan development were reviewed and approved by the faculty preceptor. The faculty preceptor is aware and concurs with the plan as stated in the body of this note and will attest to such by his/her cosignature. ATTENDING NOTE Attending Attestation: I personally performed the physical exam and medical decision making and discussed the management with the medical student. I reviewed the medical student's note and I hereby verify the history, physical exam, and medical decision-making documented by the medical student, the documented findings, and plan of care. STANLEY GEORGE OMS-3 Jun 19, 2021 19:32 REYNOLD PAINTING MD Jun 20, 2021 06:42
[2021-06-19 20:00] VITALS: BP 154/70
[2021-06-19 20:58] VITALS: BP 157/67
[2021-06-19] MEDS: HumaLOG INSULIN (NovoLOG) PER UNIT SC SCH (21:00)
[2021-06-19] MEDS: SUCRALFATE 1 GM TAB PO SCH ×2 (21:08→23:56)
[2021-06-19 21:13] VITALS: BP 146/65
[2021-06-19] MEDS: ATORVASTATIN 20 MG TAB PO SCH (21:50)
[2021-06-19] MEDS: PENTOXIFYLLINE 400 MG TAB PO SCH (21:51)
[2021-06-19 22:30] VITALS: BP 164/74
[2021-06-19 23:48] VITALS: BP 162/72
[2021-06-19] MEDS: PANTOPRAZOLE 40MG VIAL (C9113 PER 1) IV SCH (23:58)
[2021-06-20] VITALS (11 sets, daily range): BP systolic 132–187; BP diastolic 61–81
[2021-06-20] MEDS: SUCRALFATE 1 GM TAB PO SCH ×4 (05:11→23:49)
[2021-06-20 06:19] LABS: HEMATOCRIT 30.7 % (42.0-52.0); MEAN CORPUSCULAR HEMOGLOBIN 26.3 pg (27.0-33.0); MEAN CORPUSCULAR HGB CONC 30.6 g/dl (32.0-36.5); PLATELET COUNT, AUTOMATED 311 10^3/uL (150-450); RED BLOOD COUNT 3.57 10^6/uL (4.30-6.10); WHITE BLOOD COUNT 7.5 10^3/uL (4.0-10.0)
[2021-06-20 06:32] LABS: BLOOD UREA NITROGEN 13 MG/DL (7-18); CALCIUM LEVEL 8.1 MG/DL (8.8-10.2); CARBON DIOXIDE LEVEL 18 MEQ/L (21-32); CHLORIDE LEVEL 113 MEQ/L (98-107); CREATININE FOR GFR 1.15 MG/DL (0.70-1.30); GLOMERULAR FILTRATION RATE > 60.0 (>35); GLUCOSE, FASTING 126 MG/DL (70-100); POTASSIUM SERUM 4.7 MEQ/L (3.5-5.1); SODIUM LEVEL 139 MEQ/L (136-145)
[2021-06-20 06:33] LABS: INR 1.1; PROTHROMBIN TIME 14.6 SECONDS (12.7-14.5)
[2021-06-20 06:47] LABS: HEMOGLOBIN 9.4 g/dl (13.5-17.5)
[2021-06-20] MEDS: HumaLOG INSULIN (NovoLOG) PER UNIT SC SCH ×4 (07:30→20:23)
[2021-06-20] MEDS: PANTOPRAZOLE 40MG VIAL (C9113 PER 1) IV SCH ×2 (09:09→20:22)
[2021-06-20] MEDS: ASPIRIN 81MG ENTERIC TABLET PO SCH (09:09)
[2021-06-20] MEDS: PENTOXIFYLLINE 400 MG TAB PO SCH ×2 (09:10→20:22)
[2021-06-20] MEDS: POLYVINYL ALCOHOL OPHTH SOLN 15 ML(LIQUITEARS) OU SCH (09:10)
--- NOTE | 2021-06-20 09:25 | IPNPDOC ---
Date Seen The patient was seen on 06/20/21. Progress Note SUBJECTIVE: Patient is a 80-year-old male with a PMHx of PAD, vascular claudication and bilateral iliac artery stent placement (01/2015) who presented to the ED with bilateral leg cramping and pain. Incidentally in the ED, lab results showed a hemoglobin of 5.9 and 3 units of blood was ordered for transfusion. Patient was seen walking and standing in his room in no acute distress and with no acute complaints. He states that surgery has come by to see him this morning and that they will do an endoscopy in the morning. Denies fevers, chills, night sweats, shortness of breath, chest pain, palpitations, N/V/D, abdominal pain, pain in legs at rest. OBJECTIVE PHYSICAL EXAMINATION: VITAL SIGNS: Please see below. GENERAL: Standing and walking around in his room; in no acute distress HEENT: Head normocephalic atraumatic; moist mucous membranes CARDIOVASCULAR: Regular rate and rhythm; no murmurs noted RESPIRATORY: Clear to auscultation bilaterally; no wheezing, rhonchi or rales noted ABDOMINAL: Normal active bowel sounds; soft, mildly obese abdomen, no tenderness to palpation EXTREMITIES: 2+ dorsalis pedis pulses bilaterally; no pitting edema bilateral lower extremities; no tenderness to palpation in lower extremities LABORATORY DATA, IMAGING STUDIES, MICROBIOLOGY: Please see below. VASCULAR ULTRASOUND 06/19: "No evidence of deep venous thrombosis of the bilateral lower extremity femoral popliteal venous system." BILATERAL LOWER EXTREMITY ARTERIAL ULTRASOUND 06/20: "1. 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 2. Occlusion of the right superficial femoral artery. 3. Monophasic waveforms throughout the left lower extremity consistent with diffuse disease. 4. 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 5. No stents identified." DVT prophylaxis ordered?: Yes; TEDs and sequentials ASSESSMENT AND PLAN: This is a 80-year-old male with PMHx of PAD, vascular claudication, s/p bilateral iliac stent placement (01/2015) and GERD p resenting with bilateral leg cramping and incidentally found to have decreased hemoglobin level concerning for upper GI bleed. PROBLEMS: Anemia secondary to possible Upper GI bleed - Hgb 5.9 on admission; uptrended to 9.4 after 3 units of packed RBCs - will continue to trend H&H - General surgery consulted for further evaluation; we appreciate their input in the care of this patient - will obtain endoscopy tomorrow; will do capsule endoscopy outpatient - c/w IV PPI and PO sucralfate - c/w clear liquid diet PAD s/p bilateral iliac stent placement (01/2015) - h/o PAD, vascular claudication, and h/o bilateral iliac stent placement (01/2015) - pt has claudication walking for 1-2 minutes - BUN/Cr trended down to 13/1.15 - will obtain a STAT CTA for better visualization - c/w pentoxifylline and aspirin GERD - c/w IV PPI and PO sucralfate HTN - Hold lisinopril Diabetes mellitus type II - c/w Insulin sliding scale - Hold home metformin HLD - c/w atorvastatin DVT prophylaxis: - TEDs and sequentials DISPOSITION: pending clinical improvement VS, I&O, 24H, Fishbone Vital Signs/I&O Vital Signs Date Time Temp Pulse Resp B/P (MAP) Pulse Ox O2 Delivery O2 Flow Rate FiO2 06/20/21 07:08 98.0 85 18 142/62 (88) 92 Room Air I&O- Last 24 Hours up to 6 AM 06/20/21 06:00 Intake Total 1700 ml Output Total 800 ml Balance 900 ml Laboratory Data 24H LABS Laboratory Tests 2 06/19/21 15:23: Nucleated Red Blood Cells % (auto) 0.0 06/19/21 15:25: POC Glucose (Misc Panel) 140H, POC Sodium (Misc Panel) 143, POC Potassium (Misc Panel) 4.4, POC Chloride (Misc Panel) 110H, POC Total CO2 (Misc Panel) 18.0L, POC Blood Urea Nitrogen (Misc Panel 18, POC Ionized Calcium (Misc Panel) 5.0, POC Creatinine (Misc Panel) 1.6H, POC Hematocrit (Misc Panel) 21.0L 06/19/21 15:33: Anion Gap 9, Glomerular Filtration Rate 47.7, Calcium Level 8.5L 06/19/21 15:35: POC Lactate (Misc Panel) 2.19*H 06/19/21 16:40: Prothrombin Time 14.8H, Prothromb Time International Ratio 1.11, Activated Partial Thromboplast Time 28.4, Coronavirus (COVID-19)(PCR) NEGATIVE 06/19/21 19:33: Lactic Acid Level 3.6*H 06/19/21 20:00: Bedside Glucose (Misc Panel) 240H 06/19/21 23:31: Lactic Acid Level 1.3 06/20/21 05:41: Nucleated Red Blood Cells % (auto) 0.4H, Prothrombin Time 14.6H, Prothromb Time International Ratio 1.10, Anion Gap 8, Glomerular Filtration Rate > 60.0, Lactic Acid Followup at 4 Hours 1.6, Calcium Level 8.1L CBC/BMP Laboratory Tests 06/19/21 15:23 06/19/21 15:33 06/20/21 05:41 GME ATTESTATION GME ATTESTATION My faculty preceptor for this patient encounter was physically present during the encounter and was fully available. All aspects of the patient interview, examination, medical decision making process, and medical care plan development were reviewed and approved by the faculty preceptor. The faculty preceptor is aware and concurs with the plan as stated in the body of this note and will attest to such by his/her cosignature. ATTENDING NOTE Attending Attestation: I saw and evaluated the patient. I agree with the finding and the plan of care as documented in the residents note. GME ATTESTATION GME ATTESTATION My faculty preceptor for this patient encounter was physically present during the encounter and was fully available. All aspects of the patient interview, ex amination, medical decision making process, and medical care plan development were reviewed and approved by the faculty preceptor. The faculty preceptor is aware and concurs with the plan as stated in the body of this note and will attest to such by his/her cosignature. ATTENDING NOTE Attending Attestation: I saw and evaluated the patient. I agree with the finding and the plan of care as documented in the residents note. Tessa Ga DO Jun 20, 2021 08:26 REYNOLD PAINTING MD Jun 21, 2021 06:30
--- NOTE | 2021-06-20 09:53 | REP ---
INDICATION: claudication b/l. Patient states had stents placed in both legs 5 years ago now having lower extremity pain since April. COMPARISON: None. TECHNIQUE: Pulse duplex color Doppler ultrasound evaluation of the lower extremity arterial tree. FINDINGS: Right lower extremity: There is elevation of the peak systolic flow velocity in the right common femoral artery 206.8 centimeters/second with a monophasic waveform. There is occlusion of the right superficial femoral artery at its mid point. There is reconstitution at the popliteal artery with a peak systolic flow velocity of 33 centimeters/second. There are monophasic waveforms in the popliteal, anterior tibial, posterior tibial and dorsalis pedis arteries. The CASS on the right is 0.72 consistent with significant arteriolar sclerosis. Left lower extremity: There are monophasic waveforms throughout the left lower extremity. The peak systolic flow velocity in the common femoral artery is 142 centimeters/second. There is no dopplerable pulse in the left posterior tibial artery. The CASS on the left is 0.80 consistent with moderate arteriolar sclerosis. IMPRESSION: 1. 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 2. Occlusion of the right superficial femoral artery. 3. Monophasic waveforms throughout the left lower extremity consistent with diffuse disease. 4. 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 5. No stents identified. <Electronically signed by Roland Martin > 06/20/21 [id number]
[2021-06-20 11:35] LABS: HEMATOCRIT 30.3 % (42.0-52.0); HEMOGLOBIN 9.6 g/dl (13.5-17.5)
[2021-06-20] MEDS ORDERED: ISOVUE-370 76% 100ML VIAL As Ordered ONE (13:21)
--- NOTE | 2021-06-20 14:58 | REPVR ---
PROCEDURE INFORMATION: Exam: CTA Angiogram of the Abdominal Aorta and Bilateral Lower Extremities (Run-off) With IV Contrast Exam date and time: 06/20/2021 1:27 PM Age: 80 years old Clinical indication: Numbness; Lower extremity; Bilatera; Additional info: Claudication w/ walking 1-2min TECHNIQUE: Imaging protocol: CT angiogram of the abdominal aorta, pelvis and bilateral lower extremities with IV iodinated contrast. 3D rendering (Not supervised by radiologist): MIP and/or 3D reconstructed images were created by the technologist. Radiation optimization: All CT scans at this facility use at least one of these dose optimization techniques: automated exposure control; mA and/or kV adjustment per patient size (includes targeted exams where dose is matched to clinical indication); or iterative reconstruction. 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 The aorta measures 2 cm diameter at the level of the dissection/ulceration. The dissection extends for 2.8 cm. No abdominal aortic aneurysm. Celiac trunk and mesenteric arteries: Calcification noted at the origin of the SMA and celiac axis with no significant stenosis. Renal arteries: Calcification at the origin of the renal arteries bilaterally but no significant stenosis. Left renal artery branches within 4 mm of its origin. No occlusion or significant stenosis of the renal arteries.. Right iliac arteries: On the right there is a stent in the external iliac artery which is patent. Atherosclerotic narrowing of the right external iliac artery distal to the stent estimated to be 50% or less. Right femoral/popliteal arteries: The right SFA is markedly calcified which limits visualization. The right proximal SFA is markedly narrowed proximally becoming thread-like in the mid thigh but can be seen distally although the lumen is narrowed (approximate 70% long segment stenosis.) Right infrapopliteal arteries: Calcification noted in the right infrapopliteal vessels interferes with assessment of the lumen. . Right peroneal artery terminates above the ankle. Right COLTEN and DAIRY MANAGER cross the ankle into the foot. Right DPA appears patent.. Left iliac arteries: Bilateral common iliac artery stents which are patent. Multifocal least moderate stenoses of the left external iliac artery beginning at its origin Left femoral/popliteal arteries: Calcification of the left SFA with multifocal moderate and high-grade stenoses noted particularly of the proximal and mid SFA. Left infrapopliteal arteries: Calcification of the mendez of the left infrapopliteal vessels. Intermittent occlusion/high-grade stenosis left posterior tibial artery. Intermittent narrowing/occlusion left peroneal artery. Left COLTEN dominant runoff vessel to the left foot. Left COLTEN and DAIRY MANAGER cross the ankle into the foot. Left DPA can be seen in the mid and left foot. Lungs: Subpleural atelectasis and consolidation in dependent portion of the lung bases Pleural space: small bilateral pleural effusions, right side greater than left. Liver: No mass. Gallbladder and bile ducts: Unremarkable. No calcified stones. No ductal dilation. Pancreas: Unremarkable. No mass. No ductal dilation. Spleen: Normal. No splenomegaly. Adrenals: Normal. No mass. Kidneys and ureters: 1.7 cm simple cyst mid left kidney. No hydronephrosis in either kidney. Stomach and bowel: Colonic diverticulosis most severe in the sigmoid colon. Appendix: No evidence of appendicitis. Bladder: Unremarkable. No mass. Reproductive: Prostate measures 4 by 5.1 by 5.2 centimetres. Intraperitoneal space: Small amount of perihepatic ascites. Lymph nodes: No lymphadenopathy. Bones/joints: Soft tissues: Bilateral inguinal hernias containing fat, left greater than right. IMPRESSION: 1. 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 The aorta measures 2 cm at this level. 2. Patent bilateral iliac stents. 3. At least 50% stenosis left external iliac artery. 4. Severe atherosclerotic narrowing of the left proximal and mid SFA. 4. Two vessel runoff to the left foot. Left COLTEN dominant runoff vessel. Six. Multifocal Long segment high-grade stenoses of the right proximal and mid SFA. Moderate to high-grade long segment stenosis of distal right SFA. 7. Three-vessel runoff to the right ankle. Right DAIRY MANAGER and COLTEN crosses the ankle into the foot. Simple cyst left kidney. Electronically signed by: Kat Gill On 06/20/2021 14:57:45 PM
--- NOTE | 2021-06-20 15:30 | CR.PDOC ---
General Surgery Consultation Date of Consultation 06/20/21 History and Physical CONSULT REPORT FOR: hospitalist service REASON FOR CONSULTATION: Anemia HISTORY OF PRESENT ILLNESS: Patient is an 80-year-old male who presented to the emergency room complaining of lower extremity pain for the past several weeks and on screening laboratory was found to be severely anemic. This seems to be an old problem. He had a brief admission back in March with complaints of black tarry stool and was observed but his hemoglobin and hematocrit did not drop further so he was just sent for outpatient follow-up. He underwent endoscopy and colonoscopy by Dr. Ortiz in April 2021. No significant findings were found. Unclear if the labs have been repeated since. But the patient denies any abdominal pain, further passage of black tarry stools, hematochezia or hematemesis. He only takes aspirin and is not on any blood thinners. He denies using NSAIDs regularly. He takes with appears to be Carafate (he describes it as a white pill that dissolv es) for some heartburn type symptoms, dyspeptic type symptoms. He denies any lightheadedness, shortness of breath on walking, lower extremity edema. I was asked to see the patient and make recommendations with regards to his anemia. 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 Colonoscopy findings include diverticulosis, removal of tubular and hyperplastic polyps. No mention of AVMs. PAST MEDICAL HISTORY: 1. . PAST SURGICAL HISTORY: INCLUDES: 1. . PREVIOUS ANESTHESIA REACTIONS: ALLERGIES: Please see below. FAMILY HISTORY: . HOME MEDICATIONS: Please see below. REVIEW OF SYSTEMS: GENERAL: [Denies chills, reports weight gain, reports feeling febrile yesterday]. HEENT: [Denies blurred vision and double vision. Denies ear symptoms. Denies hoarseness]. NECK: Denies any neck pain]. CARDIOVASCULAR: [Denies chest pain and palpitations]. MUSCULOSKELETAL: [Denies arthralgias, back pain and thrombophlebitis]. SKIN: [Denies rash]. NEUROLOGIC: [Denies headache, stroke and transient ischemic attack]. PSYCHIATRIC: [Denies anxiety and depression]. ENDOCRINE: [Denies thyroid disease]. HEMATOLOGY/ONCOLOGY: [Denies bleeding or clotting disorder]. HEART: [Denies any chest pains, palpitations, paroxysmal dyspnea, orthopnea]. PULMONARY: [Denies chronic cough, dyspnea and wheezing]. GASTROINTESTINAL: [Denies rectal bleeding, family history of colon cancer, constipation, diarrhea, dysphagia, heartburn and jaundice]. GENITOURINARY: [Denies dysuria, frequency, hematuria and nocturia]. ENDOCRINE: [Denies polydipsia, polyphagia, polyuria, heat or cold intolerance]. INFECTIOUS: [Denies any recent upper respiratory tract infection, UTI, need for use of antibiotics]. NUTRITION: [Reports good appetite]. PHYSICAL EXAMINATION: VITALS SIGNS: Please see below. GENERAL APPEARANCE:[Patient seen, laying in bed, awake, alert, and oriented. Comfortable, in no acute distress]. SKIN: [Warm and moist]. HEENT: [Normocephalic, atraumatic. [place] palpebral conjunctiva, anicteric sclerae. Lips and mucosa appear moist]. NECK: [Supple, no thyromegaly. No obvious jugular venous distention]. LUNGS: [Clear to auscultation bilaterally. No wheezing appreciated]. HEART: [No chest wall abnormalities. Regular rate and rhythm with no murmurs appreciated]. ABDOMEN: Abdomen is , soft, . [No hepatosplenomegaly. No umbilical or groin herniations, nondistended. No noticeable rebound or guarding. No grimacing with palpation. No rebound tenderness. No masses appreciated]. EXTREMITIES: [Extremities have no deformities. No edema identified] ANCILLARIES: I reviewed the endoscopy and colonoscopy report that was performed by Dr. Butler on April, LABORATORY DATA: Please see below. IMAGING STUDIES: CT angiogram IMPRESSION AND PLAN: Anemia probably either from intermittent GI loss or slow GI bleed. He is had previous work-up including an upper endoscopy and colonoscopy which was really nonrevealing though he did have a previous admission for what looks to be melena. Not much of symptoms from the anemia or report of gross bleeding by the patient. This could be from an upper GI source or from small bowel source given the history most likely probably intermittently bleeding AVM which are notoriously hard to find when they are not bleeding. Since he is already had a recent colonoscopy that are nonrevealing. He did have diverticulosis but diverticular bleeding usually is quite dramatic in presentation and patient does not recall or report any gross bleeding. I would repeat the upper endoscopy. If this turns out to be negative. He will need a referral to gastroenterology for an outpatient capsule endoscopy to further evaluate possible small bowel source of bleeding.. Vital Signs Vital Signs Date Time Temp Pulse Resp B/P (MAP) Pulse Ox O2 Delivery O2 Flow Rate FiO2 06/20/21 12:23 187/81 06/20/21 12:00 98.7 106 20 96 Room Air I&Os I&O- Last 24 Hours up to 6 AM 06/20/21 05:59 Intake Total 1700 ml Output Total 800 ml Balance 900 ml Laboratory Data Labs 24H Laboratory Tests 2 06/19/21 15:23: Nucleated Red Blood Cells % (auto) 0.0 06/19/21 15:25: POC Glucose (Misc Panel) 140H, POC Sodium (Misc Panel) 143, POC Potassium (Misc Panel) 4.4, POC Chloride (Misc Panel) 110H, POC Total CO2 (Misc Panel) 18.0L, POC Blood Urea Nitrogen (Misc Panel 18, POC Ionized Calcium (Misc Panel) 5.0, POC Creatinine (Misc Panel) 1.6H, POC Hematocrit (Misc Panel) 21.0L 06/19/21 15:33: Anion Gap 9, Glomerular Filtration Rate 47.7, Calcium Level 8.5L 06/19/21 15:35: POC Lactate (Misc Panel) 2.19*H 06/19/21 16:40: Prothrombin Time 14.8H, Prothromb Time International Ratio 1.11, Activated Partial Thromboplast Time 28.4, Coronavirus (COVID-19)(PCR) NEGATIVE 06/19/21 19:33: Lactic Acid Level 3.6*H 06/19/21 20:00: Bedside Glucose (Misc Panel) 240H 06/19/21 23:31: Lactic Acid Level 1.3 06/20/21 05:41: Nucleated Red Blood Cells % (auto) 0.4H, Prothrombin Time 14.6H, Prothromb Time International Ratio 1.10, Anion Gap 8, Glomerular Filtration Rate > 60.0, Lactic Acid Followup at 4 Hours 1.6, Calcium Level 8.1L 06/20/21 11:58: Bedside Glucose (Misc Panel) 166H CBC/BMP Laboratory Tests 06/19/21 15:23 06/19/21 15:33 06/20/21 05:41 06/20/21 11:15 Home Medications Scheduled Aspirin (Aspirin EC) 81 Mg Tabec, 81 MG PO DAILY, (Reported) Atorvastatin Calcium (Atorvastatin Calcium) 40 Mg Tablet, 40 MG PO QHS, (Reported) Cholecalciferol (Vitamin D3) (Vitamin D3) 1,000 Unit Tablet, 1,000 UNITS PO BID, (Reported) Cyanocobalamin (Vitamin B-12) (Vitamin B-12) 1,000 Mcg Tab, 1,000 MCG PO DAILY, (Reported) Lisinopril (Lisinopril) 20 Mg Tablet, 20 MG PO DAILY, (Reported) Metformin HCl (Metformin HCl) 1,000 Mg Tab, 1,000 MG PO BID, (Reported) Omeprazole (Omeprazole) 40 Mg Capsule.dr, 40 MG PO DAILY, (Reported) Pentoxifylline (Pentoxifylline) 400 Mg Tablet.er, 400 MG PO BID, (Reported) Propylene Glycol/Peg 400 (Systane 0.3-0.4% Eye Drops) 15 Ml Anjelica, 1 DROP OU DAILY, (Reported) Sucralfate (Sucralfate) 1 Gm Tablet, 1 GM PO BID, (Reported) Scheduled PRN Propylene Glycol/Peg 400 (Systane 0.3-0.4% Eye Drops) 15 Ml Anjelica, 1 DROP OU PRN PRN for DRY EYES, (Reported) Allergies Coded Allergies: No Known Drug Allergies (Verified Allergy, Unknown, 04/22/21) RASHAWN MG MD Jun 20, 2021 15:30
--- NOTE | 2021-06-20 15:33 | CR.PDOC ---
General Date of Consultation: Jun 20, 2021 Consultation REASON FOR CONSULTATION/CHIEF COMPLAINT: Claudication Arterial Duplex: FINDINGS: Right lower extremity: There is elevation of the peak systolic flow velocity in the right common femoral artery 206.8 centimeters/second with a monophasic waveform. There is occlusion of the right superficial femoral artery at its mid point. There is reconstitution at the popliteal artery with a peak systolic flow velocity of 33 centimeters/second. There are monophasic waveforms in the popliteal, anterior tibial, posterior tibial and dorsalis pedis arteries. The CASS on the right is 0.72 consistent with significant arteriolar sclerosis. Left lower extremity: There are monophasic waveforms throughout the left lower extremity. The peak systolic flow velocity in the common femoral artery is 142 centimeters/second. There is no dopplerable pulse in the left posterior tibial artery. The CASS on the left is 0.80 consistent with moderate arteriolar sclerosis. IMPRESSION: 1. 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 2. Occlusion of the right superficial femoral artery. 3. Monophasic waveforms throughout the left lower extremity consistent with dif fuse disease. 4. 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 5. No stents identified. CTA: IMPRESSION: 1. 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 The aorta measures 2 cm at this level. 2. Patent bilateral iliac stents. 3. At least 50% stenosis left external iliac artery. 4. Severe atherosclerotic narrowing of the left proximal and mid SFA. 5. Two vessel runoff to the left foot. Left COLTEN dominant runoff vessel. 6. Multifocal Long segment high-grade stenoses of the right proximal and mid SFA. Moderate to high-grade long segment stenosis of distal right SFA. 7. Three-vessel runoff to the right ankle. Right ENGINE SETTER and COLTEN crosses the ankle into the foot. 8. Simple cyst left kidney.No further workup recommended. 9. Prostate is enlarged. 10. Colonic diverticulosis. 11. Small bilateral pleural effusions with subpleural atelectasis and consolidation in the dependent portion of the lung bases 12. Mild cardiomegaly. 13. Bilateral hydroceles. Electronically signed by: Kat Gill On 06/20/2021 15:00:46 PM Arterial Duplex and CTA Aorta w/runoff both reviewed. Patient has bilateral chronic PAD. CASS are 0.72 and 0.80 (right and left). No acute vascular intervention required and patient can be managed as an outpatient. Please have patient follow-up in Vascular office. Vital Signs/I&O Vital Signs Date Time Temp Pulse Resp B/P (MAP) Pulse Ox O2 Delivery O2 Flow Rate FiO2 06/20/21 12:23 187/81 06/20/21 12:00 98.7 106 20 96 Room Air I&O- Last 24 Hours up to 6 AM 06/20/21 06:00 Intake Total 1700 ml Output Total 800 ml Balance 900 ml Laboratory Data Labs 24H Laboratory Tests 2 06/19/21 15:33: Anion Gap 9, Glomerular Filtration Rate 47.7, Calcium Level 8.5L 06/19/21 15:35: POC Lactate (Misc Panel) 2.19*H 06/19/21 16:40: Prothrombin Time 14.8H, Prothromb Time International Ratio 1.11, Activated Partial Thromboplast Time 28.4, Coronavirus (COVID-19)(PCR) NEGATIVE 06/19/21 19:33: Lactic Acid Level 3.6*H 06/19/21 20:00: Bedside Glucose (Misc Panel) 240H 06/19/21 23:31: Lactic Acid Level 1.3 06/20/21 05:41: Nucleated Red Blood Cells % (auto) 0.4H, Prothrombin Time 14.6H, Prothromb Time International Ratio 1.10, Anion Gap 8, Glomerular Filtration Rate > 60.0, Lactic Acid Followup at 4 Hours 1.6, Calcium Level 8.1L 06/20/21 11:58: Bedside Glucose (Misc Panel) 166H CBC/BMP Laboratory Tests 06/19/21 15:33 06/20/21 05:41 06/20/21 11:15 Allergies Coded Allergies: No Known Drug Allergies (Verified Allergy, Unknown, 04/22/21) Home Medications Scheduled Aspirin (Aspirin EC) 81 Mg Tabec, 81 MG PO DAILY, (Reported) Atorvastatin Calcium (Atorvastatin Calcium) 40 Mg Tablet, 40 MG PO QHS, (Reported) Cholecalciferol (Vitamin D3) (Vitamin D3) 1,000 Unit Tablet, 1,000 UNITS PO BID, (Reported) Cyanocobalamin (Vitamin B-12) (Vitamin B-12) 1,000 Mcg Tab, 1,000 MCG PO DAILY, (Reported) Lisinopril (Lisinopril) 20 Mg Tablet, 20 MG PO DAILY, (Reported) Metformin HCl (Metformin HCl) 1,000 Mg Tab, 1,000 MG PO BID, (Reported) Omeprazole (Omeprazole) 40 Mg Capsule.dr, 40 MG PO DAILY, (Reported) Pentoxifylline (Pentoxifylline) 400 Mg Tablet.er, 400 MG PO BID, (Reported) Propylene Glycol/Peg 400 (Systane 0.3-0.4% Eye Drops) 15 Ml Anjelica, 1 DROP OU DAILY, (Reported) Sucralfate (Sucralfate) 1 Gm Tablet, 1 GM PO BID, (Reported) Scheduled PRN Propylene Glycol/Peg 400 (Systane 0.3-0.4% Eye Drops) 15 Ml Anjelica, 1 DROP OU PRN PRN for DRY EYES, (Reported) LADAN JUAREZ MD Jun 20, 2021 15:33
[2021-06-20] MEDS: ATORVASTATIN 20 MG TAB PO SCH (20:22)
[2021-06-20 22:03] LABS: HEMATOCRIT 28.8 % (42.0-52.0)
[2021-06-21] VITALS (8 sets, daily range): BP systolic 109–148; BP diastolic 54–75
[2021-06-21] MEDS: SUCRALFATE 1 GM TAB PO SCH ×4 (05:04→20:19)
[2021-06-21 05:24] LABS: BASO % 0.4 % (0.0-1.0); EOS # 0.1 10^3/uL (0.0-0.5); EOS % 1.1 % (0.0-3.0); HEMATOCRIT 28.5 % (42.0-52.0); HEMOGLOBIN 8.9 g/dl (13.5-17.5); LYMPH # 1.1 10^3/uL (1.5-5.0); LYMPH % 13.8 % (24.0-44.0); MEAN CORPUSCULAR HEMOGLOBIN 26.2 pg (27.0-33.0); MEAN CORPUSCULAR HGB CONC 31.2 g/dl (32.0-36.5); MEAN CORPUSCULAR VOLUME 83.8 fl (80.0-96.0); MONO # 1.1 10^3/uL (0.0-0.8); MONO % 13.6 % (2.0-8.0); NEUTROPHILS # 5.8 10^3/uL (1.5-8.5); NEUTROPHILS % 70.7 % (36.0-66.0); PLATELET COUNT, AUTOMATED 294 10^3/uL (150-450); WHITE BLOOD COUNT 8.2 10^3/uL (4.0-10.0)
[2021-06-21 05:34] LABS: INR 1.07; PROTHROMBIN TIME 14.3 SECONDS (12.7-14.5)
[2021-06-21 05:47] LABS: CALCIUM LEVEL 7.9 MG/DL (8.8-10.2); CREATININE FOR GFR 1.33 MG/DL (0.70-1.30); GLOMERULAR FILTRATION RATE 54.8 (>35)
[2021-06-21] MEDS: HumaLOG INSULIN (NovoLOG) PER UNIT SC SCH ×4 (07:30→20:19)
--- NOTE | 2021-06-21 08:52 | IPNPDOC ---
Text Note Date of Service The patient was seen on 06/21/21. NOTE Subjective: Patient seen and examined at bedside. No acute overnight events reported. Patient voices no new medical complaints this morning. Objective: Vital Signs: reviewed and within normal limits General: NAD, sitting comfortably at edge of bed HEENT: NC/AT, EOMI Neck: supple, no masses Chest: lungs CTA B/L Heart: +S1S2, RRR Abd: soft, NT, ND, +BS Ext: no edema; 2+ dorsalis pedis pulses bilaterally; no pitting edema bilateral lower extremities; no tenderness to palpation in lower extremities Skin: no rashes MSK: full ROM at large joints Neuro: no gross focal deficits Psych: AAOx3 A/P: 80M with PMHx of PVD, claudication, s/p bilateral common iliac stent placement (01/2015) and GERD presenting with bilateral leg cramping and incidentally found to be anemic with concerns for upper GI bleed. #Anemia secondary to possible Upper GI bleed - Hgb 5.9 on admission - s/p 3 units of packed RBCs - General surgery consulted for further evaluation; we appreciate their input in the care of this patient - will obtain endoscopy tomorrow; will do capsule endoscopy outpatient - c/w IV PPI and PO sucralfate - c/w clear liquid diet #PVD s/p bilateral common iliac stent placement (01/2015) - vascular consultation - CTA aorta with runoff reviewed - no acute findings or interventions - appreciate vascular input - h/o PAD, vascular claudication, and h/o bilateral iliac stent placement (01/2015) - pt has claudication walking for 1-2 minutes - c/w pentoxifylline and aspirin #GERD - c/w IV PPI and PO sucralfate #HTN - Hold lisinopril #Diabetes mellitus type II - c/w Insulin sliding scale - Hold home metformin #HLD - c/w atorvastatin #DVT prophylaxis: - TEDs and sequentials DISPOSITION: EGD today, pending clinical improvement VS,Mikebone, I+O VS, Fishbone, I+O Laboratory Tests 06/20/21 11:15 06/20/21 21:51 06/21/21 05:10 Vital Signs Date Time Temp Pulse Resp B/P (MAP) Pulse Ox O2 Delivery O2 Flow Rate FiO2 06/21/21 07:18 99.1 83 18 146/66 (92) 90 Room Air I&O- Last 24 Hours up to 6 AM 06/21/21 06:00 Intake Total 1200 ml Output Total 2550 ml Balance -1350 ml REYNOLD PAINTING MD Jun 21, 2021 08:52
[2021-06-21] MEDS: PENTOXIFYLLINE 400 MG TAB PO SCH ×2 (09:00→20:16)
[2021-06-21] MEDS ORDERED: FLUBLOK(EGG FREE)(QUAD)INFLUENZA VACC 0.5ML SYRINGE 18YRS & OLDER IM ONE (09:00)
[2021-06-21] MEDS: PANTOPRAZOLE 40MG VIAL (C9113 PER 1) IV SCH ×2 (09:12→20:15)
[2021-06-21] MEDS: POLYVINYL ALCOHOL OPHTH SOLN 15 ML(LIQUITEARS) OU SCH (09:15)
[2021-06-21] MEDS ORDERED: fentaNYL 100 MCG/2 ML INJECTION (J3010) As Ordered ONE (11:18)
[2021-06-21] MEDS ORDERED: LIDOCAINE 2% 100MG/5ML SDV (FOR ANES.) As Ordered ONE (11:18)
[2021-06-21] MEDS ORDERED: propofoL 200 MG/20 ML VIAL As Ordered ONE (11:18)
--- NOTE | 2021-06-21 11:28 | ROOR ---
Patient Name: Brian Aguirre Procedure Date: 06/21/2021 10:48 AM Date of : 1940 Age: 80 Gender: Male Note Status: Finalized Procedure: Upper GI endoscopy Indications: Iron deficiency anemia secondary to chronic blood loss Providers: Alexis Warner MD Referring MD: 2. Inpatient 2. Inpatient Requesting Provider: Medicines: Monitored Anesthesia Care Complications: No immediate complications. Estimated blood loss: Minimal. Procedure: Pre-Anesthesia Assessment: - Prior to the procedure, a History and Physical was performed, and patient medications and allergies were reviewed. The patient is competent. The risks and benefits of the procedure and the sedation options and risks were discussed with the patient. All questions were answered and informed consent was obtained. Patient identification and proposed procedure were verified by the physician, the nurse and the senior clinical data manager in the procedure room. Mental Status Examination: alert and oriented. Airway Examination: normal oropharyngeal airway and neck mobility. Respiratory Examination: clear to auscultation. CV Examination: normal. Prophylactic Antibiotics: The patient does not require prophylactic antibiotics. Prior Anticoagulants: The patient has taken no previous anticoagulant or antiplatelet agents except for aspirin. ASA Grade Assessment: III - A patient with severe systemic disease. After reviewing the risks and benefits, the patient was deemed in satisfactory condition to undergo the procedure. The anesthesia plan was to use monitored anesthesia care (MAC). Immediately prior to administration of medications, the patient was re-assessed for adequacy to receive sedatives. The heart rate, respiratory rate, oxygen saturations, blood pressure, adequacy of pulmonary ventilation, and response to care were monitored throughout the procedure. The physical status of the patient was re-assessed after the procedure. The Endoscope was introduced through the mouth, and advanced to the second part of duodenum. The upper GI endoscopy was somewhat difficult. The patient tolerated the procedure well. Findings: The examined esophagus was normal. A small hiatal hernia was present. The stomach was normal. multiple pink colored nodules (previously biopsied) consistent with sana's gland hyperplasia, Estimated blood loss: none. One diminutive angiodysplastic lesion with bleeding on contact was found in the second portion of the duodenum. For hemostasis, two hemostatic clips were successfully placed (MR conditional). There was no bleeding at the end of the procedure. Impression: - Normal esophagus. - Small hiatal hernia. - Normal stomach. 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 Clips (MR conditional) were placed. - No specimens collected. Recommendation: - Admit the patient [facility] for [facility] care. - refer to GI as outpt. 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 All rights reserved. The codes documented in this report are preliminary and upon cpc coder review may be revised to meet current compliance requirements. Alexis Warner MD Alexis Warner MD 06/21/2021 11:27:52 AM Electronically signed by Alexis Warner MD Number of Addenda: 0 Note Initiated On: 06/21/2021 10:48 AM Estimated Blood Loss: Estimated blood loss: none.
[2021-06-21] MEDS ORDERED: ONDANSETRON 4MG/2ML VIAL IV PRN (11:40)
[2021-06-21] MEDS ORDERED: LR 1,000 ML IV SCH (11:40)
[2021-06-21] MEDS: ASPIRIN 81MG ENTERIC TABLET PO SCH (12:40)
[2021-06-21 19:26] LABS: MAGNESIUM LEVEL 1.7 MG/DL (1.8-2.4)
[2021-06-21] MEDS: ATORVASTATIN 20 MG TAB PO SCH (20:16)
[2021-06-22] VITALS: BP 138/70
[2021-06-22 06:09] LABS: HEMATOCRIT 28.3 % (42.0-52.0); HEMOGLOBIN 8.8 g/dl (13.5-17.5); MEAN CORPUSCULAR HEMOGLOBIN 26.4 pg (27.0-33.0); MEAN CORPUSCULAR HGB CONC 31.1 g/dl (32.0-36.5); PLATELET COUNT, AUTOMATED 280 10^3/uL (150-450); RED BLOOD COUNT 3.33 10^6/uL (4.30-6.10); WHITE BLOOD COUNT 6.8 10^3/uL (4.0-10.0)
[2021-06-22 06:17] LABS: INR 1.14; PROTHROMBIN TIME 15.1 SECONDS (12.7-14.5)
[2021-06-22 06:27] LABS: CALCIUM LEVEL 7.9 MG/DL (8.8-10.2); CREATININE FOR GFR 1.33 MG/DL (0.70-1.30); GLOMERULAR FILTRATION RATE 54.8 (>35); POTASSIUM SERUM 4.3 MEQ/L (3.5-5.1)
[2021-06-22] MEDS: SUCRALFATE 1 GM TAB PO SCH (06:27)
[2021-06-22 06:29] VITALS: BP 184/79
[2021-06-22 07:30] LABS: MAGNESIUM LEVEL 1.9 MG/DL (1.8-2.4)
[2021-06-22] MEDS: HumaLOG INSULIN (NovoLOG) PER UNIT SC SCH (07:30)
[2021-06-22 08:00] VITALS: BP 176/52
[2021-06-22 08:13] VITALS: BP 184/79
[2021-06-22] MEDS: PANTOPRAZOLE 40MG VIAL (C9113 PER 1) IV SCH (08:13)
[2021-06-22] MEDS: ASPIRIN 81MG ENTERIC TABLET PO SCH (08:13)
[2021-06-22] MEDS: PENTOXIFYLLINE 400 MG TAB PO SCH (08:13)
[2021-06-22] MEDS: POLYVINYL ALCOHOL OPHTH SOLN 15 ML(LIQUITEARS) OU SCH (08:14)
[2021-06-22] MEDS ORDERED: FERR325T3 PO (08:58)
[2021-06-22] MEDS ORDERED: ASCORBIC ACID 500 MG TAB PO SCH (09:00)
[2021-06-22] MEDS ORDERED: FERROUS SULFATE 325MG TAB PO SCH (09:00)
--- NOTE | 2021-06-22 09:30 | DS.PDOC ---
Discharge Summary General Date of Admission Jun 19, 2021 at 16:37 Date of Discharge 06/22/2021 Specialist/Consultants Involve vascular surgery general surgery Discharge Summary PROCEDURES PERFORMED DURING STAY: EGD with clipping of AVM DISCHARGE DIAGNOSES: #upper GI bleed #peripheral vascular disease s/p b/l common iliac stent - january 2015 #claudication - resolved #CKDIII #HTN #DM #HLD #GERD COMPLICATIONS/CHIEF COMPLAINT: Ugi Bleed. HISTORY OF PRESENT ILLNESS: Mr. Aguirre is an 78 yo male with a h/o peripheral artery disease, vascular claudication, and bilateral iliac artery stent placement (01/2015) who presents to the ER with bilateral leg cramping and pain when walking about 50-75ft for the past 2 weeks. Patient reports pain only with exertion and was very pleasant. He denies SOB, CP, palpitations, nausea, vomiting, diarrhea, fever, or changes in weight. While in the ED, lab results showed Hgb 5.9 and blood (3 units) was ordered for transfusion. Upon speaking with the patient, patient did not complain of bleeding or abdominal pain but did mention a previous admission in 03/2021 for bloody stool. At the time, the patient was discharged with follow-up outpatient for EGD and colonoscopy. The patient's EGD showed erythematous mucosa in the duodenal bulb and a single submucosal nodule in the second portion of the duodenum. Biopsies of both specimens showed no signs of significant pathology. Colonoscopy showed 5 small polyps in the rectum which were completely resected by a hot snare. HOSPITAL COURSE: Patient was admitted for further evaluation and treatment. Patient seen in consultation by general surgery. 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 His hemoglobin remained stable. Discussed with general surgery with recommendations for outpatient capsule endoscopy for further evaluation of upper GI bleed. He originally presented for claudication, and was seen in consultation by vascular surgery. Imaging revealed patent stents with no acute pathology. Further discussion with vascular surgery with recommendations for outpatient follow-up. DISCHARGE MEDICATIONS: Please see below. ALLERGIES: Please see below. PHYSICAL EXAMINATION ON DISCHARGE: Vital Signs: reviewed and within normal limits General: NAD, sitting comfortably at edge of bed HEENT: NC/AT, EOMI Neck: supple, no masses Chest: lungs CTA B/L Heart: +S1S2, RRR Abd: soft, NT, ND, +BS Ext: no edema Skin: no rashes MSK: full ROM at large joints Neuro: no gross focal deficits Psych: AAOx3 LABORATORY DATA: Please see below. ACTIVITY: [As tolerated]. DIET: 2 gram sodium, carb consistent diet DISCHARGE INSTRUCTIONS: 1. Follow up with PCP in 3-5 days. 2. Follow up with GI for further investigation in 3-7 days. DISCHARGE CONDITION: [Stable]. TIME SPENT ON DISCHARGE: 35 minutes. Vital Signs/I&Os Vital Signs Date Time Temp Pulse Resp B/P (MAP) Pulse Ox O2 Delivery O2 Flow Rate FiO2 06/22/21 08:13 184/79 06/22/21 08:00 98.3 58 22 96 Room Air I&O- Last 24 Hours up to 6 AM 06/22/21 06:00 Intake Total 960 ml Output Total 400 ml Balance 560 ml Laboratory Data Labs 24H Laboratory Tests 2 06/21/21 10:35: Bedside Glucose (Misc Panel) 132H 06/21/21 12:16: Bedside Glucose (Misc Panel) 129H 06/21/21 16:41: Bedside Glucose (Misc Panel) 235H 06/21/21 20:19: Bedside Glucose (Misc Panel) 156H 06/22/21 05:06: Nucleated Red Blood Cells % (auto) 0.0, Prothrombin Time 15.1H, Prothromb Time International Ratio 1.14, Anion Gap 6L, Glomerular Filtration Rate 54.8, Calcium Level 7.9L, Magnesium Level 1.9 CBC/BMP Laboratory Tests 06/22/21 05:06 FSBS Laboratory Tests Test 06/21/21 10:35 06/21/21 12:16 06/21/21 16:41 06/21/21 20:19 Range/Units Bedside Glucose (Misc Panel) 132 129 235 156 83-110 MG/DL Discharge Medications Scheduled Aspirin (Aspirin EC) 81 Mg Tabec, 81 MG PO DAILY, (Reported) Atorvastatin Calcium (Atorvastatin Calcium) 40 Mg Tablet, 40 MG PO QHS, (Reported) Cholecalciferol (Vitamin D3) (Vitamin D3) 1,000 Unit Tablet, 1,000 UNITS PO BID, (Reported) Cyanocobalamin (Vitamin B-12) (Vitamin B-12) 1,000 Mcg Tab, 1,000 MCG PO DAILY, (Reported) Ferrous Sulfate (Ferrous Sulfate) 325 Mg Tablet.dr, 1 TAB PO BID Lisinopril (Lisinopril) 20 Mg Tablet, 20 MG PO DAILY, (Reported) Metformin HCl (Metformin HCl) 1,000 Mg Tab, 1,000 MG PO BID, (Reported) Omeprazole (Omeprazole) 40 Mg Capsule.dr, 40 MG PO DAILY, (Reported) Pentoxifylline (Pentoxifylline) 400 Mg Tablet.er, 400 MG PO BID, (Reported) Propylene Glycol/Peg 400 (Systane 0.3-0.4% Eye Drops) 15 Ml Anjelica, 1 DROP OU DAILY, (Reported) Sucralfate (Sucralfate) 1 Gm Tablet, 1 GM PO BID, (Reported) Scheduled PRN Propylene Glycol/Peg 400 (Systane 0.3-0.4% Eye Drops) 15 Ml Anjelica, 1 DROP OU PRN PRN for DRY EYES, (Reported) Allergies Coded Allergies: No Known Drug Allergies (Verified Allergy, Unknown, 04/22/21) REYNOLD PAINTING MD Jun 22, 2021 09:30
[2021-06-22 09:32] VITALS: BP 160/60
--- NOTE | 2021-06-22 16:31 | ECGEPIP ---
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 Order Number: [id number] Reading MD: Magdalene Zuñiga Measurements Intervals Myton Rate: 117 P: 95 NV: 160 QRS: 82 QRSD: 118 T: 7 QT: 368 QTc: 513 Interpretive Statements Sinus tachycardia with premature atrial complexes Right bundle branch block Cannot rule out Inferior infarct , age undetermined increased rate 03/23/21 Electronically Signed on 06-22-2021 16:31:20 EDT by Magdalene Zuñiga
== END 2021-06-22 10:49 | disposition home or self-care (01) | DRG 811 ==
LOC: M ED 12:26 → M ED INP 16:37 → M PCU 18:54
PROVIDERS: ADMIT Internal Medicine; ATTEND Internal Medicine
PROC: 30233N1 Transfusion of Nonautologous Red Blood Cells into Peripheral Vein, Percutaneous Approach (ICD-10-PCS; 2021-06-19)
PROC: 0W3P8ZZ Control Bleeding in Gastrointestinal Tract, Via Natural or Artificial Opening Endoscopic (ICD-10-PCS; principal; 2021-06-21 09:00)
DX: D50.0 Iron deficiency anemia secondary to blood loss (chronic) (principal); K31.811 Angiodysplasia of stomach and duodenum with bleeding; K21.9 Gastro-esophageal reflux disease without esophagitis; N18.31 Chronic kidney disease, stage 3a; I12.9 Hypertensive chronic kidney disease with stage 1 through stage 4 chronic kidney disease, or unspecified chronic kidney disease; E11.51 Type 2 diabetes mellitus with diabetic peripheral angiopathy without gangrene; K44.9 Diaphragmatic hernia without obstruction or gangrene; E11.22 Type 2 diabetes mellitus with diabetic chronic kidney disease; E78.5 Hyperlipidemia, unspecified; Z95.820 Peripheral vascular angioplasty status with implants and grafts; Z79.82 Long term (current) use of aspirin; Z79.899 Other long term (current) drug therapy; Z79.84 Long term (current) use of oral hypoglycemic drugs; Z20.822 Contact with and (suspected) exposure to COVID-19

== ENCOUNTER → 2021-07-01 | Outpatient (CLI) | payer MEDICARE ==
[~2021-07-01] MED LIST changes: +FERR325T3 PO; +OMEP-221 PO
[2021-07-01 13:29] LABS: HEMATOCRIT 32.9 % (42.0-52.0); MEAN CORPUSCULAR HGB CONC 30.4 g/dl (32.0-36.5); MEAN CORPUSCULAR VOLUME 85.7 fl (80.0-96.0); PLATELET COUNT, AUTOMATED 287 10^3/uL (150-450); RED BLOOD COUNT 3.84 10^6/uL (4.30-6.10); WHITE BLOOD COUNT 7.2 10^3/uL (4.0-10.0)
[2021-07-01 14:06] LABS: CALCIUM LEVEL 9.3 MG/DL (8.8-10.2); CREATININE FOR GFR 1.45 MG/DL (0.70-1.30); GLOMERULAR FILTRATION RATE 49.6 (>35); MAGNESIUM LEVEL 1.7 MG/DL (1.8-2.4); POTASSIUM SERUM 4.3 MEQ/L (3.5-5.1)
== END ==
LOC: M PLALAB 11:53
PROVIDERS: ATTEND Physician Assistant
DX: K92.2 Gastrointestinal hemorrhage, unspecified (principal)

== ENCOUNTER → 2021-08-29 | Outpatient (CLI) | payer MEDICARE ==
[2021-08-29 08:46] LABS: BASO % 0.6 % (0.0-1.0); EOS # 0.3 10^3/uL (0.0-0.5); EOS % 4.6 % (0.0-3.0); HEMATOCRIT 37.8 % (42.0-52.0); HEMOGLOBIN 11.7 g/dl (13.5-17.5); LYMPH # 1.6 10^3/uL (1.5-5.0); LYMPH % 24.4 % (24.0-44.0); MEAN CORPUSCULAR HEMOGLOBIN 26.4 pg (27.0-33.0); MEAN CORPUSCULAR VOLUME 85.3 fl (80.0-96.0); MONO # 1.1 10^3/uL (0.0-0.8); MONO % 16.1 % (2.0-8.0); NEUTROPHILS # 3.6 10^3/uL (1.5-8.5); PLATELET COUNT, AUTOMATED 278 10^3/uL (150-450); RED BLOOD COUNT 4.43 10^6/uL (4.30-6.10); WHITE BLOOD COUNT 6.7 10^3/uL (4.0-10.0)
[2021-08-29 09:12] LABS: CREATININE FOR GFR 1.43 MG/DL (0.70-1.30); GLOMERULAR FILTRATION RATE 50.3 (>35); PERCENT SATURATION 13.3 % (19.7-50.0)
[2021-08-31 11:41] LABS: FOLATE 8.7 NG/ML
== END ==
LOC: M LAB 08:04
PROVIDERS: ATTEND Internal Medicine Gastroenterology
DX: D64.9 Anemia, unspecified (principal)

== ENCOUNTER → 2021-09-02 | Outpatient (CLI) | payer MEDICARE ==
[2021-09-02 10:50] LABS: HEMATOCRIT 36.6 % (42.0-52.0); HEMOGLOBIN 11.3 g/dl (13.5-17.5); MEAN CORPUSCULAR HGB CONC 30.9 g/dl (32.0-36.5); MEAN CORPUSCULAR VOLUME 87.6 fl (80.0-96.0); PLATELET COUNT, AUTOMATED 281 10^3/uL (150-450); RED BLOOD COUNT 4.18 10^6/uL (4.30-6.10); WHITE BLOOD COUNT 6.5 10^3/uL (4.0-10.0)
[2021-09-02 11:14] LABS: ALBUMIN 3.6 GM/DL (3.2-5.2); BILIRUBIN,TOTAL 0.6 MG/DL (0.2-1.0); CREATININE FOR GFR 1.53 MG/DL (0.70-1.30); GLOMERULAR FILTRATION RATE 46.5 (>35); PERCENT SATURATION 22.2 % (19.7-50.0); POTASSIUM SERUM 4.5 MEQ/L (3.5-5.1); TOTAL PROTEIN 6.7 GM/DL (6.4-8.2)
[2021-09-02 11:18] LABS: HEMOGLOBIN A1c 7.4 %
== END ==
LOC: M PLALAB 07:04
PROVIDERS: ATTEND Nurse Practitioner Adult Health
DX: E11.51 Type 2 diabetes mellitus with diabetic peripheral angiopathy without gangrene (principal); D50.9 Iron deficiency anemia, unspecified

== ENCOUNTER → 2021-10-21 | Outpatient (REF) | LOC: M LABSMTC 12:32 | PROVIDERS: ATTEND Pediatrics | DX: Z11.52 Encounter for screening for COVID-19 (principal) ==

== ENCOUNTER → 2022-07-07 | Outpatient (CLI) | payer MEDICARE ==
[~2022-07-07] MED LIST changes: -D31000TA2 PO; -OMEP-221 PO; +OMEP40CA5 PO; +VITA100093 PO
[2022-07-07 15:38] LABS: HEMATOCRIT 39.2 % (42.0-52.0); MEAN CORPUSCULAR HEMOGLOBIN 31.3 pg (27.0-33.0); MEAN CORPUSCULAR HGB CONC 33.2 g/dl (32.0-36.5); MEAN CORPUSCULAR VOLUME 94.5 fl (80.0-96.0); PLATELET COUNT, AUTOMATED 290 10^3/uL (150-450); RED BLOOD COUNT 4.15 10^6/uL (4.30-6.10); WHITE BLOOD COUNT 8.8 10^3/uL (4.0-10.0)
[2022-07-07 16:01] LABS: HEMOGLOBIN A1c 7.9 %
[2022-07-07 16:20] LABS: ALBUMIN 3.8 GM/DL (3.2-5.2); BILIRUBIN,TOTAL 0.9 MG/DL (0.2-1.0); CALCIUM LEVEL 8.9 MG/DL (8.8-10.2); CHOLESTEROL RISK RATIO 4.081 (<5); CREATININE FOR GFR 1.72 MG/DL (0.70-1.30); GLOMERULAR FILTRATION RATE 40.6 (>35); MAGNESIUM LEVEL 1.5 MG/DL (1.8-2.4); PERCENT SATURATION 32.5 % (19.7-50.0); POTASSIUM SERUM 4.6 MEQ/L (3.5-5.1); TOTAL PROTEIN 7.1 GM/DL (6.4-8.2)
[2022-07-07 16:22] LABS: CREATININE, URINE 66.6 MG/DL; MALB URINE SIEMENS 26.8 MG/L; MAU/CREAT RATIO 40.2 MCG/MG (0.0-30.0)
== END ==
LOC: M PLALAB 14:10
PROVIDERS: ATTEND Nurse Practitioner Adult Health
DX: D50.9 Iron deficiency anemia, unspecified (principal); E78.00 Pure hypercholesterolemia, unspecified

== ENCOUNTER → 2023-04-01 | Outpatient (CLI) | payer MEDICARE ==
[~2023-04-01] MED LIST changes: +SIMV-254 PO; -ZOCO40TA PO
[2023-04-01 10:19] LABS: HEMATOCRIT 39.9 % (42.0-52.0); HEMOGLOBIN 12.8 g/dl (13.5-17.5); MEAN CORPUSCULAR HEMOGLOBIN 30.5 pg (27.0-33.0); MEAN CORPUSCULAR HGB CONC 32.1 g/dl (32.0-36.5); PLATELET COUNT, AUTOMATED 282 10^3/uL (150-450); WHITE BLOOD COUNT 6.3 10^3/uL (4.0-10.0)
[2023-04-01 10:23] LABS: ALBUMIN 3.8 G/DL (3.2-5.2); CALCIUM LEVEL 9.8 MG/DL (8.3-10.6); CHOLESTEROL RISK RATIO 4.36 (<5); CREATININE FOR GFR 1.99 MG/DL (0.70-1.30); GLOMERULAR FILTRATION RATE 34.3 (>35); HDL CHOLESTEROL 33.9 MG/DL (>40); LDL CHOLESTEROL 89.5 MG/DL (<100); NON-HDL-C 114.1 MG/DL; POTASSIUM SERUM 4.8 MMOL/L (3.5-5.1); TOTAL PROTEIN 6.8 G/DL (5.7-8.2)
[2023-04-01 10:35] LABS: FERRITIN 54.3 NG/ML (10.5-307.3)
[2023-04-01 10:52] LABS: CREATININE, URINE 56.5 MG/DL
[2023-04-01 10:53] LABS: MAU/CREAT RATIO 14.1 MCG/MG (0.0-30.0)
== END ==
LOC: M PLALAB 07:09
PROVIDERS: ATTEND Nurse Practitioner Adult Health
DX: E11.51 Type 2 diabetes mellitus with diabetic peripheral angiopathy without gangrene (principal)

== ENCOUNTER 2023-04-23 18:25 | Emergency (ER) | payer MEDICARE ==
[~2023-04-23] VITALS: Ht 167.6 cm; Wt 82.7 kg
[2023-04-23] MEDS ORDERED: FURO20TA2 (18:43)
[2023-04-23] MEDS ORDERED: POTA1TAB23 (18:43)
[2023-04-23 18:57] VITALS: TEMP 97
[2023-04-23] MEDS ORDERED: SEMA0.257 SQ (18:59)
[2023-04-23 19:11] LABS: BASO % 0.3 % (0.0-1.0); EOS # 0.1 10^3/uL (0.0-0.5); EOS % 1.2 % (0.0-3.0); HEMATOCRIT 38.6 % (42.0-52.0); HEMOGLOBIN 12.5 g/dl (13.5-17.5); LYMPH # 1.2 10^3/uL (1.5-5.0); LYMPH % 14.4 % (24.0-44.0); MEAN CORPUSCULAR HEMOGLOBIN 30.7 pg (27.0-33.0); MEAN CORPUSCULAR HGB CONC 32.4 g/dl (32.0-36.5); MEAN CORPUSCULAR VOLUME 94.8 fl (80.0-96.0); MONO # 0.9 10^3/uL (0.0-0.8); MONO % 10.3 % (2.0-8.0); NEUTROPHILS # 6.3 10^3/uL (1.5-8.5); NEUTROPHILS % 73.6 % (36.0-66.0); PLATELET COUNT, AUTOMATED 234 10^3/uL (150-450); RED BLOOD COUNT 4.07 10^6/uL (4.30-6.10); WHITE BLOOD COUNT 8.6 10^3/uL (4.0-10.0)
[2023-04-23 19:34] LABS: CPK CREATINE PHOSPHOKINASE 74 U/L (46-171)
[2023-04-23 19:35] LABS: ALBUMIN 3.5 G/DL (3.2-5.2); ALKALINE PHOSPHATASE 64 U/L (46-116); ALT/SGPT < 9 U/L (7.0-40); AST/SGOT < 8 U/L (<34); BILIRUBIN,DIRECT 0.5 MG/DL (<0.4); BILIRUBIN,TOTAL 0.9 MG/DL (0.3-1.2); BLOOD UREA NITROGEN 36 MG/DL (9-23); CALCIUM LEVEL 9.5 MG/DL (8.3-10.6); CARBON DIOXIDE LEVEL 23 MMOL/L (20-31); CHLORIDE LEVEL 107 MMOL/L (98-107); CREATININE FOR GFR 2.09 MG/DL (0.70-1.30); GLOMERULAR FILTRATION RATE 32.4 (>35); GLUCOSE, FASTING 190 MG/DL (74-106); INR 1.02; POTASSIUM SERUM 4.4 MMOL/L (3.5-5.1); PROTHROMBIN TIME 13.6 SECONDS (12.5-14.5); SODIUM LEVEL 138 MMOL/L (136-145); TOTAL PROTEIN 6.4 G/DL (5.7-8.2)
[2023-04-23 19:36] LABS: PARTIAL THROMBOPLASTIN TIME 30.1 SECONDS (24.8-34.2)
[2023-04-23 19:37] LABS: FREE T4 0.96 NG/DL (0.89-1.76)
[2023-04-23 20:45] VITALS: BP 124/57
[2023-04-23] MEDS ORDERED: APIXABAN 2.5 MG TAB (ELIQUIS) PO ONE (20:45)
[2023-04-23] MEDS ORDERED: ELIQ2.5T PO (20:46)
[2023-04-23 20:55] VITALS: O2SAT 96
== END 2023-04-23 21:05 | disposition home or self-care (01) ==
LOC: EDBD 18:25 → M ED 18:25
DX: I48.91 Unspecified atrial fibrillation (principal); E11.649 Type 2 diabetes mellitus with hypoglycemia without coma; I10 Essential (primary) hypertension; I73.9 Peripheral vascular disease, unspecified; E78.5 Hyperlipidemia, unspecified; Z79.899 Other long term (current) drug therapy; Z79.82 Long term (current) use of aspirin

== ENCOUNTER → 2023-10-06 | Outpatient (CLI) | payer MEDICARE ==
[~2023-10-06] MED LIST changes: +ELIQ2.5T PO; +FURO20TA2; +POTA1TAB23; +SEMA0.257 SQ
[2023-10-06 14:25] LABS: HEMATOCRIT 41.9 % (42.0-52.0); HEMOGLOBIN 13.8 g/dl (13.5-17.5); MEAN CORPUSCULAR HEMOGLOBIN 31.2 pg (27.0-33.0); MEAN CORPUSCULAR HGB CONC 32.9 g/dl (32.0-36.5); MEAN CORPUSCULAR VOLUME 94.8 fl (80.0-96.0); PLATELET COUNT, AUTOMATED 269 10^3/uL (150-450); RED BLOOD COUNT 4.42 10^6/uL (4.30-6.10); WHITE BLOOD COUNT 8.2 10^3/uL (4.0-10.0)
[2023-10-06 14:55] LABS: PERCENT SATURATION 31.5 % (19.7-50.0)
[2023-10-06 14:57] LABS: FERRITIN 56.6 NG/ML (10.5-307.3)
== END ==
LOC: M PLALAB 09:19
PROVIDERS: ATTEND Nurse Practitioner Adult Health
DX: D50.9 Iron deficiency anemia, unspecified (principal)

== ENCOUNTER → 2023-12-14 | Outpatient (CLI) | payer MEDICARE ==
[2023-12-14 11:27] LABS: HEMATOCRIT 37.1 % (42.0-52.0); MEAN CORPUSCULAR HEMOGLOBIN 31.6 pg (27.0-33.0); MEAN CORPUSCULAR HGB CONC 32.3 g/dl (32.0-36.5); MEAN CORPUSCULAR VOLUME 97.6 fl (80.0-96.0); PLATELET COUNT, AUTOMATED 290 10^3/uL (150-450); WHITE BLOOD COUNT 6.6 10^3/uL (4.0-10.0)
[2023-12-14 12:02] LABS: ALBUMIN 3.5 G/DL (3.2-5.2); BILIRUBIN,TOTAL 0.9 MG/DL (0.3-1.2); CALCIUM LEVEL 8.6 MG/DL (8.3-10.6); CREATININE FOR GFR 1.86 MG/DL (0.70-1.30); GLOMERULAR FILTRATION RATE 36.9 (>35); POTASSIUM SERUM 4.8 MMOL/L (3.5-5.1); TOTAL PROTEIN 6.4 G/DL (5.7-8.2)
[2023-12-14 12:06] LABS: FERRITIN 57.1 NG/ML (10.5-307.3)
[2023-12-14 12:41] LABS: HEMOGLOBIN A1c 6.8 % (4.0-6.0)
== END ==
LOC: M PLALAB 07:48
PROVIDERS: ATTEND Nurse Practitioner Adult Health
DX: E11.51 Type 2 diabetes mellitus with diabetic peripheral angiopathy without gangrene (principal); D50.9 Iron deficiency anemia, unspecified; E78.2 Mixed hyperlipidemia

== ENCOUNTER → 2024-02-14 | Outpatient (REF) | payer MEDICARE | LOC: M SFHCPLAZ 16:54 | PROVIDERS: ATTEND Nurse Practitioner Adult Health | DX: R05.3 Chronic cough (principal) ==

== ENCOUNTER → 2024-03-08 | Outpatient (CLI) | payer MEDICARE | LOC: M PLAIMG 12:30 | PROVIDERS: ATTEND Nurse Practitioner Adult Health | DX: I48.91 Unspecified atrial fibrillation (principal) ==

== ENCOUNTER → 2024-07-06 | Outpatient (REF) | payer MEDICARE | LOC: M SFHCDERM 17:04 | PROVIDERS: ATTEND Physician Assistant | DX: C44.219 Basal cell carcinoma of skin of left ear and external auricular canal (principal) ==

== ENCOUNTER → 2024-11-22 | Outpatient (CLI) | payer MEDICARE ==
[2024-11-22 10:47] LABS: HEMATOCRIT 38.9 % (42.0-52.0); HEMOGLOBIN 12.3 g/dl (13.5-17.5); MEAN CORPUSCULAR HEMOGLOBIN 30.9 pg (27.0-33.0); MEAN CORPUSCULAR HGB CONC 31.6 g/dl (32.0-36.5); MEAN CORPUSCULAR VOLUME 97.7 fl (80.0-96.0); PLATELET COUNT, AUTOMATED 224 10^3/uL (150-450); RED BLOOD COUNT 3.98 10^6/uL (4.30-6.10); WHITE BLOOD COUNT 5.6 10^3/uL (4.0-10.0)
[2024-11-22 11:19] LABS: CREATININE, URINE 69.1 MG/DL; MAU/CREAT RATIO 30.3 MCG/MG (0.0-30.0)
[2024-11-22 11:20] LABS: ALBUMIN 3.8 G/DL (3.2-5.2); CHOLESTEROL RISK RATIO 3.18 (<5); GLOMERULAR FILTRATION RATE 33.9 (>35); HDL CHOLESTEROL 39.3 MG/DL (>40); LDL CHOLESTEROL 71.7 MG/DL (<100); MAGNESIUM LEVEL 1.7 MG/DL (1.8-2.4); NON-HDL-C 85.7 MG/DL; PERCENT SATURATION 18.3 % (19.7-50.0); POTASSIUM SERUM 5.1 MMOL/L (3.5-5.1)
== END ==
LOC: M PLALAB 08:19
PROVIDERS: ATTEND Nurse Practitioner Adult Health
DX: D50.9 Iron deficiency anemia, unspecified (principal); E78.00 Pure hypercholesterolemia, unspecified

== ENCOUNTER → 2024-11-27 | Outpatient (REF) | payer MEDICARE | LOC: M SFHCDERM 17:42 | PROVIDERS: ATTEND Dermatology | DX: L57.0 Actinic keratosis (principal); L57.8 Other skin changes due to chronic exposure to nonionizing radiation ==

== ENCOUNTER → 2024-12-06 | Outpatient (CLI) | payer MEDICARE ==
[2024-12-06 18:24] LABS: HEMOGLOBIN A1c 6.6 % (4.0-6.0)
== END ==
LOC: M PLALAB 13:57
PROVIDERS: ATTEND Nurse Practitioner Adult Health
DX: E11.51 Type 2 diabetes mellitus with diabetic peripheral angiopathy without gangrene (principal)

== ENCOUNTER → 2025-07-18 | Outpatient (CLI) | payer MEDICARE ==
[2025-07-18 14:53] LABS: BASO # 0.0 10^3/uL (0.0-0.2); BASO % 0.5 % (0.0-1.0); EOS # 0.1 10^3/uL (0.0-0.5); EOS % 1.7 % (0.0-3.0); LYMPH # 1.9 10^3/uL (1.5-5.0); LYMPH % 24.7 % (24.0-44.0); MONO # 0.9 10^3/uL (0.0-0.8); MONO % 11.6 % (2.0-8.0); NEUTROPHILS # 4.7 10^3/uL (1.5-8.5); NEUTROPHILS % 61.4 % (36.0-66.0); PLATELET COUNT, AUTOMATED 201 10^3/uL (150-450)
[2025-07-18 15:00] LABS: ERYTHROCYTE SEDIMENTATION RATE 16 mm/hr (0-20)
[2025-07-18 15:10] LABS: ALT/SGPT 25.0 U/L (7.0-40); AST/SGOT 20.0 U/L (<34); CALCIUM LEVEL 8.3 MG/DL (8.3-10.6); CARBON DIOXIDE LEVEL 24.0 MMOL/L (20-31); CHLORIDE LEVEL 106.0 MMOL/L (98-107); CREATININE FOR GFR 2.07 MG/DL (0.70-1.30); GLOMERULAR FILTRATION RATE 30.6 (>35); POTASSIUM SERUM 4.9 MMOL/L (3.5-5.1); SODIUM LEVEL 137.0 MMOL/L (136-145)
[2025-07-18 15:11] LABS: RHEUMATOID FACTOR QUANT 10.6 IU/ML (<14)
[2025-07-18 15:12] LABS: VITAMIN B12 LEVEL 639.0 PG/ML (211-911)
[2025-07-18 15:14] LABS: ESTIMATED AVERAGE GLUCOSE 151.0 MG/DL (60-110)
[2025-07-20 00:33] LABS: T P ELECTROPHORESIS SO 6.8 g/dL (6.1-8.1)
== END ==
LOC: M PLALAB 12:10
PROVIDERS: ATTEND Psychiatry & Neurology Neurology
DX: G62.9 Polyneuropathy, unspecified (principal)

== ENCOUNTER 2025-09-15 00:56 | Inpatient (IN) | payer MEDICARE ==
[~2025-09-15] VITALS: Ht 167.6 cm; Wt 76.4 kg
[~2025-09-15 00:56] MED LIST changes: -FURO20TA2; +FURO20TA2 PO; -POTA1TAB23; +POTA1TAB23 PO
[2025-09-15 01:25] LABS: VENOUS BASE EXCESS -8.8 (-2.0-2.0); VENOUS HCO3 19.2 MMOL/L (23.0-27.0); VENOUS O2 SATURATION 33.9 % (60.0-80.0); VENOUS PARTIAL PRESSURE CO2 50.0 mmHg (38.0-50.0); VENOUS PARTIAL PRESSURE O2 23.1 mmHg (30.0-50.0); VENOUS PH 7.203 UNITS (7.330-7.430); VENOUS STANDARD HCO3 16.2 MMOL/L; VENOUS TOTAL CO2 20.8 MMOL/L (24.0-28.0)
[2025-09-15 01:30] LABS: BASO # 0.0 10^3/uL (0.0-0.2); BASO % 0.2 % (0.0-1.0); EOS # 0.1 10^3/uL (0.0-0.5); EOS % 0.5 % (0.0-3.0); LYMPH # 1.4 10^3/uL (1.5-5.0); LYMPH % 15.2 % (24.0-44.0); MONO # 1.2 10^3/uL (0.0-0.8); MONO % 12.6 % (2.0-8.0); NEUTROPHILS # 6.7 10^3/uL (1.5-8.5); NEUTROPHILS % 71.0 % (36.0-66.0); PLATELET COUNT, AUTOMATED 361 10^3/uL (150-450)
[2025-09-15 01:51] LABS: ALT/SGPT 30.0 U/L (7.0-40); AST/SGOT 33.0 U/L (<34); CALCIUM LEVEL 8.7 MG/DL (8.3-10.6); CARBON DIOXIDE LEVEL 21.0 MMOL/L (20-31); CHLORIDE LEVEL 102.0 MMOL/L (98-107); CK-MB VALUE MASS 3.2 NG/ML (<3.6); CPK CREATINE PHOSPHOKINASE 45.0 U/L (46-171); CREATININE FOR GFR 2.42 MG/DL (0.70-1.30); GLOMERULAR FILTRATION RATE 25.2 (>35); MB/CK RELATIVE INDEX 7.11 (< OR =4); POTASSIUM SERUM 5.0 MMOL/L (3.5-5.1); SODIUM LEVEL 136.0 MMOL/L (136-145)
[2025-09-15] MEDS: IPRATROPIUM 0.5 MG/ALBUTEROL 2.5 MG INH SOL UD 3 ML NEB ONE (01:52)
[2025-09-15 02:55] LABS: CK-MB VALUE MASS 2.9 NG/ML (<3.6); CPK CREATINE PHOSPHOKINASE 62.0 U/L (46-171); MB/CK RELATIVE INDEX 4.67 (< OR =4)
[2025-09-15] MEDS: FUROSEMIDE 40 MG/4 ML VIAL IV ONE (06:32)
[2025-09-15] MEDS ORDERED: ELIQ2.5T PO (07:31)
[2025-09-15] MEDS ORDERED: FERR325T3 PO (07:33)
[2025-09-15] MEDS ORDERED: GABA-1172 PO (07:40)
[2025-09-15] MEDS ORDERED: HOME MED LIST COMPLETE! XX SCH (07:45)
[2025-09-15] MEDS: cefTRIAXone SOD 2 GM in DEXTROSE 5% (D5W) ADV/MINI-BAG 50 ML IV SCH (08:19)
[2025-09-15] MEDS ORDERED: POLYVINYL ALCOHOL OPHTH SOLN 15ML (LIQUITEARS) OU PRN (09:00)
[2025-09-15] MEDS ORDERED: GLUCAGON INJ 1 MG VIAL SC PRN (09:05)
[2025-09-15] MEDS ORDERED: GLUCOSE 4 GM CHEW PO PRN (09:05)
[2025-09-15] MEDS ORDERED: DEXTROSE 50% 50 ML SYRINGE IV PRN (09:05)
[2025-09-15 09:25] LABS: LDH LACTATE DEHYDROGENASE 256.0 U/L (120-246)
[2025-09-15] MEDS: METOPROLOL TART 12.5 MG PER 1/2 TAB PO SCH (10:41)
[2025-09-15] MEDS: ASPIRIN 81 MG ENTERIC TABLET PO SCH (10:41)
[2025-09-15] MEDS: FERROUS SULFATE 325 MG TAB PO SCH (10:42)
[2025-09-15] MEDS: OMEPRAZOLE 20MG CAP PO SCH (10:42)
[2025-09-15] MEDS: PENTOXIFYLLINE 400 MG PO SCH (10:42)
[2025-09-15] MEDS: INSULIN LISPRO (NovoLOG) PER UNIT SC SCH ×2 (12:00→21:00)
[2025-09-15 15:02] VITALS: BP 154/70; TEMP 98.3; O2SAT 95
[2025-09-15] MEDS: ACETAMINOPHEN 325 MG TAB PO PRN (15:12)
[2025-09-15 19:31] VITALS: BP 164/74; TEMP 97.8; O2SAT 93
[2025-09-15] MEDS: ATORVASTATIN 20 MG TAB PO SCH (20:36)
[2025-09-15] MEDS: GABAPENTIN 300 MG CAP PO SCH (20:36)
[2025-09-15 23:55] VITALS: BP 122/67; TEMP 97.9; O2SAT 93
[2025-09-16] VITALS (8 sets, daily range): BP systolic 118–146; BP diastolic 55–70; TEMP 97.3–99.1; O2SAT 93–97
[2025-09-16 06:14] LABS: PLATELET COUNT, AUTOMATED 369 10^3/uL (150-450)
[2025-09-16 06:45] LABS: CALCIUM LEVEL 8.4 MG/DL (8.3-10.6); CARBON DIOXIDE LEVEL 20.0 MMOL/L (20-31); CHLORIDE LEVEL 102.0 MMOL/L (98-107); CREATININE FOR GFR 2.1 MG/DL (0.70-1.30); GLOMERULAR FILTRATION RATE 29.9 (>35); POTASSIUM SERUM 4.7 MMOL/L (3.5-5.1); SODIUM LEVEL 134.0 MMOL/L (136-145)
[2025-09-16 08:02] LABS: LDH LACTATE DEHYDROGENASE 252.0 U/L (120-246)
[2025-09-16] MEDS: FUROSEMIDE 40 MG/4 ML VIAL IV SCH (09:12)
[2025-09-16 12:08] LABS: APPEARANCE, URINE CLEAR (CLEAR); BACTERIA, URINE AUTO NEGATIVE (NEGATIVE); BILIRUBIN, URINE AUTO NEGATIVE (NEGATIVE); BLOOD, URINE BLOOD NEGATIVE (NEGATIVE); GLUCOSE, URINE (UA) AUTO NEGATIVE (NEGATIVE); KETONE, URINE AUTO NEGATIVE (NEGATIVE); LEUKOCYTE ESTERASE, URINE AUTO NEGATIVE (NEGATIVE); MUCUS, URINE SMALL (NEGATIVE); NITRITE, URINE AUTO NEGATIVE (NEGATIVE); PROTEIN, URINE AUTO NEGATIVE (NEGATIVE); RBC, URINE AUTO 0 /HPF (0-3); SPECIFIC GRAVITY URINE AUTO 1.009 (1.002-1.035); SQUAMOUS EPITHELIAL CELL UR AU 0 /HPF (0-6); UROBILINOGEN, URINE AUTO 0.2 mg/dL (0.0-2.0); WBC, URINE AUTO 1 /HPF (0-3)
[2025-09-16 16:14] LABS: PH BODY FLUID 7.597 UNITS (NOT ESTABLISHED); SOURCE, BODY FLUID pH PLEURAL
[2025-09-16 16:47] LABS: APPEARANCE, BODY FLUID HAZY (CLEAR); PLEURAL FL COLOR YELLOW (COLORLESS); SOURCE, BODY FLUID PLEURAL
[2025-09-17] VITALS (8 sets, daily range): BP systolic 89–140; BP diastolic 50–62; TEMP 97.3–99; O2SAT 94–98
[2025-09-17 06:50] LABS: PLATELET COUNT, AUTOMATED 351 10^3/uL (150-450)
[2025-09-17 07:21] LABS: CALCIUM LEVEL 8.0 MG/DL (8.3-10.6); CARBON DIOXIDE LEVEL 22.0 MMOL/L (20-31); CHLORIDE LEVEL 104.0 MMOL/L (98-107); CREATININE FOR GFR 2.5 MG/DL (0.70-1.30); GLOMERULAR FILTRATION RATE 24.3 (>35); POTASSIUM SERUM 5.1 MMOL/L (3.5-5.1); SODIUM LEVEL 137.0 MMOL/L (136-145)
[2025-09-17 15:43] LABS: TOTAL PROTEIN,RANDOM URINE 29.2 MG/DL (0.0-14.0)
[2025-09-17] MEDS: APIXABAN 2.5 MG TAB PO SCH (21:44)
[2025-09-18 03:21] VITALS: BP 129/60; TEMP 98; O2SAT 93
[2025-09-18 06:00] LABS: PLATELET COUNT, AUTOMATED 328 10^3/uL (150-450)
[2025-09-18 06:21] LABS: CALCIUM LEVEL 8.0 MG/DL (8.3-10.6); CARBON DIOXIDE LEVEL 21.0 MMOL/L (20-31); CHLORIDE LEVEL 105.0 MMOL/L (98-107); CREATININE FOR GFR 2.63 MG/DL (0.70-1.30); GLOMERULAR FILTRATION RATE 22.8 (>35); IRON (FE) 21.0 UG/DL (65-175); POTASSIUM SERUM 4.9 MMOL/L (3.5-5.1); SODIUM LEVEL 137.0 MMOL/L (136-145)
[2025-09-18 06:22] LABS: PERCENT SATURATION 10.0 % (19.7-50.0); VITAMIN B12 LEVEL 1187.0 PG/ML (211-911)
[2025-09-18 07:42] VITALS: BP 112/56; TEMP 97.5; O2SAT 96
[2025-09-18] MEDS: CEFPODOXIME PROXETIL 200 MG TABLET PO SCH (08:51)
[2025-09-18] MEDS: FUROSEMIDE 40 MG TAB PO SCH (08:53)
[2025-09-18] MEDS: FERRIC CARBOXYMALTOSE INJ 750 MG, VIAL MATE ADAPTER 1 EACH in NS 100 ML IV ONE (11:54)
[2025-09-18 12:16] VITALS: BP 125/57; TEMP 97.8; O2SAT 97
[2025-09-18 15:55] VITALS: BP 123/53; TEMP 97.4; O2SAT 94
[2025-09-18 19:44] VITALS: BP 121/50; TEMP 97.3; O2SAT 95
[2025-09-18 23:53] VITALS: BP 123/58; TEMP 98.1; O2SAT 96
[2025-09-19 03:46] VITALS: BP 117/58; TEMP 98; O2SAT 94
[2025-09-19 06:50] LABS: CALCIUM LEVEL 8.1 MG/DL (8.3-10.6); CARBON DIOXIDE LEVEL 19.0 MMOL/L (20-31); CHLORIDE LEVEL 105.0 MMOL/L (98-107); CREATININE FOR GFR 2.29 MG/DL (0.70-1.30); GLOMERULAR FILTRATION RATE 27.0 (>35); PLATELET COUNT, AUTOMATED 332 10^3/uL (150-450); POTASSIUM SERUM 4.8 MMOL/L (3.5-5.1); SODIUM LEVEL 137.0 MMOL/L (136-145)
[2025-09-19 07:41] VITALS: BP 134/63; TEMP 97.8; O2SAT 95
[2025-09-19] MEDS ORDERED: FURO40TA2 PO (09:40)
[2025-09-19] MEDS ORDERED: METO1TAB87 PO (09:40)
[2025-09-19] MEDS: MIRALAX *UNIT DOSE* 17 GM PACKET PO SCH (10:02)
[2025-09-19 10:04] VITALS: BP 143/64
[2025-09-19] MEDS: SENNA 8.6 MG TAB PO PRN (10:04)
[2025-09-20 07:02] LABS: PROTEIN, TOTAL SO 5.4 g/dL (6.1-8.1)
== END 2025-09-19 11:15 | disposition home or self-care (01) | DRG 291 ==
LOC: M ED 00:56 → M ED INP 10:05 → M PCU 14:51
PROVIDERS: ADMIT Student in an Organized Health Care Education/Training Program; ATTEND Internal Medicine
PROC: B246ZZZ Ultrasonography of Right and Left Heart (ICD-10-PCS; principal; 2025-09-15)
PROC: 0W9B3ZZ Drainage of Left Pleural Cavity, Percutaneous Approach (ICD-10-PCS; 2025-09-16)
DX: I13.0 Hypertensive heart and chronic kidney disease with heart failure and stage 1 through stage 4 chronic kidney disease, or unspecified chronic kidney disease (principal); J18.9 Pneumonia, unspecified organism; N17.9 Acute kidney failure, unspecified; I31.39 Other pericardial effusion (noninflammatory); I50.32 Chronic diastolic (congestive) heart failure; J90 Pleural effusion, not elsewhere classified; N18.32 Chronic kidney disease, stage 3b; E78.5 Hyperlipidemia, unspecified; E11.22 Type 2 diabetes mellitus with diabetic chronic kidney disease; E11.51 Type 2 diabetes mellitus with diabetic peripheral angiopathy without gangrene; I48.91 Unspecified atrial fibrillation; D63.1 Anemia in chronic kidney disease; D50.9 Iron deficiency anemia, unspecified; E11.40 Type 2 diabetes mellitus with diabetic neuropathy, unspecified; Z79.01 Long term (current) use of anticoagulants; Z79.899 Other long term (current) drug therapy; Z95.820 Peripheral vascular angioplasty status with implants and grafts

== ENCOUNTER 2025-09-26 11:50 | Inpatient (IN) | payer MEDICARE ==
[~2025-09-26] VITALS: Ht 167.6 cm; Wt 73.9 kg
[~2025-09-26 11:50] MED LIST changes: +FURO40TA2 PO; +GABA-1172 PO; +METO1TAB87 PO
[2025-09-26 12:21] LABS: VENOUS BASE EXCESS -7.6 (-2.0-2.0); VENOUS HCO3 19.1 MMOL/L (23.0-27.0); VENOUS O2 SATURATION 72.9 % (60.0-80.0); VENOUS PARTIAL PRESSURE CO2 42.9 mmHg (38.0-50.0); VENOUS PARTIAL PRESSURE O2 41.8 mmHg (30.0-50.0); VENOUS PH 7.266 UNITS (7.330-7.430); VENOUS STANDARD HCO3 17.9 MMOL/L; VENOUS TOTAL CO2 20.4 MMOL/L (24.0-28.0)
[2025-09-26 12:26] LABS: BASO # 0.0 10^3/uL (0.0-0.2); BASO % 0.3 % (0.0-1.0); EOS # 0.1 10^3/uL (0.0-0.5); EOS % 0.9 % (0.0-3.0); LYMPH # 0.9 10^3/uL (1.5-5.0); LYMPH % 9.7 % (24.0-44.0); MONO # 0.6 10^3/uL (0.0-0.8); MONO % 6.6 % (2.0-8.0); NEUTROPHILS # 7.9 10^3/uL (1.5-8.5); NEUTROPHILS % 81.7 % (36.0-66.0); PLATELET COUNT, AUTOMATED 405 10^3/uL (150-450)
[2025-09-26 12:56] LABS: ALT/SGPT 29.0 U/L (7.0-40); AST/SGOT 33.0 U/L (<34); CALCIUM LEVEL 8.2 MG/DL (8.3-10.6); CARBON DIOXIDE LEVEL 20.0 MMOL/L (20-31); CHLORIDE LEVEL 108.0 MMOL/L (98-107); CREATININE FOR GFR 2.13 MG/DL (0.70-1.30); GLOMERULAR FILTRATION RATE 29.4 (>35); POTASSIUM SERUM 5.1 MMOL/L (3.5-5.1); SODIUM LEVEL 139.0 MMOL/L (136-145)
[2025-09-26] MEDS: FUROSEMIDE 100 MG/10 ML VIAL IV ONE (13:29)
[2025-09-26] MEDS ORDERED: FURO40TA2 PO (14:29)
[2025-09-26] MEDS ORDERED: METO1TAB87 PO (14:30)
[2025-09-26] MEDS ORDERED: HOME MED LIST COMPLETE! XX SCH (14:35)
[2025-09-26 17:39] VITALS: BP 147/75; TEMP 98.3; O2SAT 93
[2025-09-26] MEDS ORDERED: DEXTROSE 50% 50 ML SYRINGE IV PRN (18:45)
[2025-09-26] MEDS ORDERED: GLUCAGON INJ 1 MG VIAL SC PRN (18:45)
[2025-09-26] MEDS ORDERED: GLUCOSE 4 GM CHEW PO PRN (18:45)
[2025-09-26 20:48] VITALS: BP 117/51; TEMP 98.4; O2SAT 94
[2025-09-26] MEDS: INSULIN LISPRO (NovoLOG) PER UNIT SC SCH (21:00)
[2025-09-26] MEDS: HEPARIN SOD 5000 UNITS/ML 1 ML VIAL/SYRINGE SQ SCH (21:41)
[2025-09-26] MEDS: FERROUS SULFATE 325 MG TAB PO SCH (21:41)
[2025-09-26] MEDS: VITAMIN D 1,000 INTERNATIONAL UNITS TABLET PO SCH (21:45)
[2025-09-26] MEDS: METOPROLOL TART 12.5 MG PER 1/2 TAB PO SCH (21:45)
[2025-09-26] MEDS: ATORVASTATIN 20 MG TAB PO SCH (21:45)
[2025-09-26] MEDS: GABAPENTIN 300 MG CAP PO SCH (21:45)
[2025-09-26] MEDS: PENTOXIFYLLINE 400 MG PO SCH (21:45)
[2025-09-26] MEDS: ACETAMINOPHEN 325 MG TAB PO PRN (22:38)
[2025-09-27] VITALS (7 sets, daily range): BP systolic 90–142; BP diastolic 50–66; TEMP 97.5–98.3; O2SAT 93–97
[2025-09-27 06:32] LABS: PLATELET COUNT, AUTOMATED 336 10^3/uL (150-450)
[2025-09-27 06:52] LABS: CALCIUM LEVEL 8.1 MG/DL (8.3-10.6); CARBON DIOXIDE LEVEL 24.0 MMOL/L (20-31); CHLORIDE LEVEL 105.0 MMOL/L (98-107); CREATININE FOR GFR 2.56 MG/DL (0.70-1.30); GLOMERULAR FILTRATION RATE 23.6 (>35); POTASSIUM SERUM 4.4 MMOL/L (3.5-5.1); SODIUM LEVEL 138.0 MMOL/L (136-145)
[2025-09-27] MEDS: ASPIRIN 81 MG ENTERIC TABLET PO SCH (08:38)
[2025-09-27] MEDS: INSULIN LISPRO (NovoLOG) PER UNIT SC SCH (08:39)
[2025-09-27] MEDS: OMEPRAZOLE 20MG CAP PO SCH (08:39)
[2025-09-27] MEDS: CYANOCOBALAMIN 500 MCG TAB PO SCH (08:40)
[2025-09-27] MEDS ORDERED: FUROSEMIDE 100 MG/10 ML VIAL IV SCH (09:00)
[2025-09-27] MEDS: FUROSEMIDE 100 MG/10 ML VIAL IV SCH (10:39)
[2025-09-27] MEDS: FUROSEMIDE 40 MG/4 ML VIAL IV SCH (17:39)
[2025-09-28] VITALS (8 sets, daily range): BP systolic 90–124; BP diastolic 50–67; TEMP 98–98.4; O2SAT 91–98
[2025-09-28 06:05] LABS: PLATELET COUNT, AUTOMATED 322 10^3/uL (150-450)
[2025-09-28 06:39] LABS: CALCIUM LEVEL 8.0 MG/DL (8.3-10.6); CARBON DIOXIDE LEVEL 23.0 MMOL/L (20-31); CHLORIDE LEVEL 104.0 MMOL/L (98-107); CREATININE FOR GFR 2.82 MG/DL (0.70-1.30); GLOMERULAR FILTRATION RATE 21.0 (>35); POTASSIUM SERUM 4.4 MMOL/L (3.5-5.1); SODIUM LEVEL 137.0 MMOL/L (136-145)
[2025-09-28] MEDS: MIDODRINE 5 MG TAB PO SCH (12:55)
[2025-09-28] MEDS: FUROSEMIDE injection 100 MG, VIAL 2 BAG 13MM ADAPTER 1 EACH in NS 100 ML IV SCH (12:56)
[2025-09-29 04:13] VITALS: BP 102/58; TEMP 98; O2SAT 95
[2025-09-29 06:05] LABS: PLATELET COUNT, AUTOMATED 285 10^3/uL (150-450)
[2025-09-29 06:34] LABS: CALCIUM LEVEL 7.6 MG/DL (8.3-10.6); CARBON DIOXIDE LEVEL 22.0 MMOL/L (20-31); CHLORIDE LEVEL 107.0 MMOL/L (98-107); CREATININE FOR GFR 3.06 MG/DL (0.70-1.30); GLOMERULAR FILTRATION RATE 19.0 (>35); POTASSIUM SERUM 4.8 MMOL/L (3.5-5.1); SODIUM LEVEL 139.0 MMOL/L (136-145)
[2025-09-29 07:46] VITALS: BP 128/58; TEMP 98; O2SAT 91
[2025-09-29 11:47] VITALS: BP 111/59; TEMP 97.9; O2SAT 97
[2025-09-29] MEDS: metOLazone 2.5 MG TAB PO ONE (12:37)
[2025-09-29 15:55] VITALS: BP 108/57; TEMP 98.2; O2SAT 99
[2025-09-29 19:47] VITALS: BP 107/53; TEMP 98.2; O2SAT 95
[2025-09-29 23:23] VITALS: BP 113/56; TEMP 98.2; O2SAT 94
[2025-09-30 05:17] VITALS: BP 127/60; TEMP 98.8; O2SAT 92
[2025-09-30 06:34] LABS: PLATELET COUNT, AUTOMATED 271 10^3/uL (150-450)
[2025-09-30 06:57] LABS: CALCIUM LEVEL 7.7 MG/DL (8.3-10.6); CARBON DIOXIDE LEVEL 20.0 MMOL/L (20-31); CHLORIDE LEVEL 104.0 MMOL/L (98-107); CREATININE FOR GFR 3.01 MG/DL (0.70-1.30); GLOMERULAR FILTRATION RATE 19.4 (>35); POTASSIUM SERUM 4.2 MMOL/L (3.5-5.1); SODIUM LEVEL 136.0 MMOL/L (136-145)
[2025-09-30 07:32] VITALS: BP 122/59; TEMP 98.2; O2SAT 95
[2025-09-30 12:00] VITALS: BP 106/55; TEMP 98.1; O2SAT 89
[2025-09-30] MEDS: metOLazone 2.5 MG TAB PO ONE (13:10)
[2025-09-30 15:37] VITALS: BP 109/53; TEMP 98.3; O2SAT 97
[2025-09-30] MEDS: POLYVINYL ALCOHOL OPHTH SOLN 15ML (LIQUITEARS) OU PRN (15:46)
[2025-09-30 20:10] VITALS: BP 119/68; TEMP 98.5; O2SAT 99
[2025-09-30 23:45] VITALS: BP 110/58; TEMP 98.7; O2SAT 94
[2025-10-01 03:56] VITALS: BP 107/53; TEMP 98.7; O2SAT 95
[2025-10-01 07:01] LABS: PLATELET COUNT, AUTOMATED 300 10^3/uL (150-450)
[2025-10-01 07:28] LABS: CALCIUM LEVEL 8.0 MG/DL (8.3-10.6); CARBON DIOXIDE LEVEL 22.0 MMOL/L (20-31); CHLORIDE LEVEL 100.0 MMOL/L (98-107); CREATININE FOR GFR 2.94 MG/DL (0.70-1.30); GLOMERULAR FILTRATION RATE 20.0 (>35); POTASSIUM SERUM 4.2 MMOL/L (3.5-5.1); SODIUM LEVEL 134.0 MMOL/L (136-145)
[2025-10-01 07:32] VITALS: BP 119/62; TEMP 98.2; O2SAT 95
[2025-10-01 12:00] VITALS: BP 98/54; TEMP 98.7; O2SAT 95
[2025-10-01] MEDS: POTASSIUM CHLORIDE 10MEQ SR TABLET PO SCH (12:04)
[2025-10-01] MEDS: metOLazone 2.5 MG TAB PO ONE (12:04)
[2025-10-01 15:36] VITALS: BP 125/56; TEMP 97.9; O2SAT 96
[2025-10-01 20:02] VITALS: BP 131/63; TEMP 98.5; O2SAT 99
[2025-10-01 23:50] VITALS: TEMP 98.3; O2SAT 93
[2025-10-02 04:15] VITALS: BP 111/56; TEMP 97.7; O2SAT 92
[2025-10-02 07:13] LABS: PLATELET COUNT, AUTOMATED 280 10^3/uL (150-450)
[2025-10-02 07:42] LABS: CALCIUM LEVEL 8.1 MG/DL (8.3-10.6); CARBON DIOXIDE LEVEL 22.0 MMOL/L (20-31); CHLORIDE LEVEL 101.0 MMOL/L (98-107); CREATININE FOR GFR 2.99 MG/DL (0.70-1.30); GLOMERULAR FILTRATION RATE 19.6 (>35); POTASSIUM SERUM 4.5 MMOL/L (3.5-5.1); SODIUM LEVEL 136.0 MMOL/L (136-145)
[2025-10-02 07:54] VITALS: BP 117/58; TEMP 98.3; O2SAT 95
[2025-10-02] MEDS: POTASSIUM CHLORIDE 10MEQ SR TABLET PO SCH (11:25)
[2025-10-02 12:00] VITALS: BP 112/57; TEMP 98.1; O2SAT 96
[2025-10-02 15:44] VITALS: BP 130/58; TEMP 98.2; O2SAT 99
[2025-10-02 20:09] VITALS: BP 114/58; TEMP 98.7; O2SAT 98
[2025-10-02] MEDS: APIXABAN 2.5 MG TAB PO SCH (20:57)
[2025-10-02] MEDS ORDERED: APIXABAN 5 MG TAB PO SCH (21:00)
[2025-10-03 00:17] VITALS: BP 129/86; TEMP 97.7; O2SAT 96
[2025-10-03 03:18] VITALS: BP 109/56; TEMP 98.3; O2SAT 91
[2025-10-03 05:53] LABS: PLATELET COUNT, AUTOMATED 267 10^3/uL (150-450)
[2025-10-03 06:19] LABS: CALCIUM LEVEL 8.3 MG/DL (8.3-10.6); CARBON DIOXIDE LEVEL 22.0 MMOL/L (20-31); CHLORIDE LEVEL 100.0 MMOL/L (98-107); CREATININE FOR GFR 3.04 MG/DL (0.70-1.30); GLOMERULAR FILTRATION RATE 19.2 (>35); POTASSIUM SERUM 4.4 MMOL/L (3.5-5.1); SODIUM LEVEL 134.0 MMOL/L (136-145)
[2025-10-03 07:37] VITALS: BP 121/57; TEMP 98.2; O2SAT 96
[2025-10-03 12:00] VITALS: BP 110/56; TEMP 98.3; O2SAT 97
[2025-10-03 15:40] VITALS: BP 108/57; TEMP 98.1; O2SAT 98
[2025-10-03 20:00] VITALS: BP 129/58; TEMP 98.4; O2SAT 96
[2025-10-04] VITALS (8 sets, daily range): BP systolic 96–121; BP diastolic 48–98; TEMP 98–98.7; O2SAT 95–97
[2025-10-04 08:37] LABS: PLATELET COUNT, AUTOMATED 265 10^3/uL (150-450)
[2025-10-04 08:58] LABS: CALCIUM LEVEL 8.3 MG/DL (8.3-10.6); CARBON DIOXIDE LEVEL 24.0 MMOL/L (20-31); CHLORIDE LEVEL 97.0 MMOL/L (98-107); CREATININE FOR GFR 3.0 MG/DL (0.70-1.30); GLOMERULAR FILTRATION RATE 19.5 (>35); POTASSIUM SERUM 4.0 MMOL/L (3.5-5.1); SODIUM LEVEL 135.0 MMOL/L (136-145)
[2025-10-04] MEDS: MAG SULF 1GM/100ML (MAG RUN) 1 GM in IV 1 EA IV SCH (13:02)
[2025-10-04] MEDS: POTASSIUM CHLORIDE 10MEQ SR TABLET PO SCH (17:22)
[2025-10-05 00:11] VITALS: BP 111/53; TEMP 98.2; O2SAT 95
[2025-10-05 03:52] VITALS: BP 105/56; TEMP 98.4; O2SAT 96
[2025-10-05 06:20] LABS: BASO # 0.0 10^3/uL (0.0-0.2); BASO % 0.3 % (0.0-1.0); EOS # 0.2 10^3/uL (0.0-0.5); EOS % 2.0 % (0.0-3.0); LYMPH # 1.1 10^3/uL (1.5-5.0); LYMPH % 12.6 % (24.0-44.0); MONO # 1.4 10^3/uL (0.0-0.8); MONO % 16.1 % (2.0-8.0); NEUTROPHILS # 6.0 10^3/uL (1.5-8.5); NEUTROPHILS % 68.7 % (36.0-66.0); PLATELET COUNT, AUTOMATED 246 10^3/uL (150-450)
[2025-10-05 06:52] LABS: CALCIUM LEVEL 8.2 MG/DL (8.3-10.6); CARBON DIOXIDE LEVEL 24.0 MMOL/L (20-31); CHLORIDE LEVEL 96.0 MMOL/L (98-107); CREATININE FOR GFR 2.97 MG/DL (0.70-1.30); GLOMERULAR FILTRATION RATE 19.7 (>35); MAGNESIUM LEVEL 2.1 MG/DL (1.8-2.4); POTASSIUM SERUM 4.0 MMOL/L (3.5-5.1); SODIUM LEVEL 133.0 MMOL/L (136-145)
[2025-10-05 08:26] VITALS: BP 124/59; TEMP 97.9; O2SAT 98
[2025-10-05 12:00] VITALS: BP 122/59; TEMP 98.4; O2SAT 97
[2025-10-05 16:12] VITALS: BP 124/58; TEMP 98.2; O2SAT 94
[2025-10-05 19:41] VITALS: BP 120/59; TEMP 98.7; O2SAT 96
[2025-10-05] MEDS: MIRALAX *UNIT DOSE* 17 GM PACKET PO SCH (21:00)
[2025-10-05] MEDS: DOCUSATE SODIUM 100 MG CAPSULE PO SCH (21:01)
[2025-10-06] VITALS (7 sets, daily range): BP systolic 105–138; BP diastolic 53–63; TEMP 97.8–98.9; O2SAT 92–97
[2025-10-06 05:48] LABS: PLATELET COUNT, AUTOMATED 238 10^3/uL (150-450)
[2025-10-06 06:07] LABS: CALCIUM LEVEL 8.3 MG/DL (8.3-10.6); CARBON DIOXIDE LEVEL 23.0 MMOL/L (20-31); CHLORIDE LEVEL 93.0 MMOL/L (98-107); CREATININE FOR GFR 2.88 MG/DL (0.70-1.30); GLOMERULAR FILTRATION RATE 20.5 (>35); MAGNESIUM LEVEL 1.9 MG/DL (1.8-2.4); POTASSIUM SERUM 3.6 MMOL/L (3.5-5.1); SODIUM LEVEL 131.0 MMOL/L (136-145)
[2025-10-06] MEDS: metOLazone 2.5 MG TAB PO ONE (14:29)
[2025-10-07 03:32] VITALS: BP 116/56; TEMP 98.6; O2SAT 96
[2025-10-07 06:29] LABS: PLATELET COUNT, AUTOMATED 259 10^3/uL (150-450)
[2025-10-07 06:43] LABS: CALCIUM LEVEL 8.7 MG/DL (8.3-10.6); CARBON DIOXIDE LEVEL 25.0 MMOL/L (20-31); CHLORIDE LEVEL 92.0 MMOL/L (98-107); CREATININE FOR GFR 3.04 MG/DL (0.70-1.30); GLOMERULAR FILTRATION RATE 19.2 (>35); MAGNESIUM LEVEL 1.8 MG/DL (1.8-2.4); POTASSIUM SERUM 3.5 MMOL/L (3.5-5.1); SODIUM LEVEL 132.0 MMOL/L (136-145)
[2025-10-07 08:05] VITALS: BP 117/57; TEMP 98.5; O2SAT 97
[2025-10-07 11:46] VITALS: BP 123/56; TEMP 98.2; O2SAT 97
[2025-10-07 15:59] VITALS: BP 116/59; TEMP 98.4; O2SAT 96
[2025-10-07 20:32] VITALS: BP 111/56; TEMP 98.4; O2SAT 94
[2025-10-07 23:38] VITALS: BP 124/58; TEMP 98.3; O2SAT 95
[2025-10-08 04:18] VITALS: BP 103/59; TEMP 98.4; O2SAT 96
[2025-10-08 06:21] LABS: PLATELET COUNT, AUTOMATED 252 10^3/uL (150-450)
[2025-10-08 06:49] LABS: CALCIUM LEVEL 8.1 MG/DL (8.3-10.6); CARBON DIOXIDE LEVEL 27.0 MMOL/L (20-31); CHLORIDE LEVEL 94.0 MMOL/L (98-107); CREATININE FOR GFR 2.98 MG/DL (0.70-1.30); GLOMERULAR FILTRATION RATE 19.7 (>35); MAGNESIUM LEVEL 1.8 MG/DL (1.8-2.4); POTASSIUM SERUM 3.8 MMOL/L (3.5-5.1); SODIUM LEVEL 134.0 MMOL/L (136-145)
[2025-10-08 08:15] VITALS: BP 146/67; TEMP 97.6; O2SAT 96
[2025-10-08 12:38] VITALS: BP 120/56; TEMP 97.9; O2SAT 96
[2025-10-08 16:40] VITALS: BP 128/93; TEMP 97.9; O2SAT 97
[2025-10-08 21:51] VITALS: BP_SYST 113; BP_SYST 120; BP_DIAS 59; BP_DIAS 81; TEMP 99; TEMP 99.2; O2SAT 95; O2SAT 96
[2025-10-09 00:37] VITALS: BP 105/55; TEMP 98.3; O2SAT 93
[2025-10-09 04:36] VITALS: BP 125/58; TEMP 98.4; O2SAT 96
[2025-10-09 06:11] LABS: PLATELET COUNT, AUTOMATED 272 10^3/uL (150-450)
[2025-10-09 06:45] LABS: CALCIUM LEVEL 8.7 MG/DL (8.3-10.6); CARBON DIOXIDE LEVEL 29.0 MMOL/L (20-31); CHLORIDE LEVEL 88.0 MMOL/L (98-107); CREATININE FOR GFR 2.96 MG/DL (0.70-1.30); GLOMERULAR FILTRATION RATE 19.8 (>35); MAGNESIUM LEVEL 1.8 MG/DL (1.8-2.4); POTASSIUM SERUM 3.4 MMOL/L (3.5-5.1); SODIUM LEVEL 133.0 MMOL/L (136-145)
[2025-10-09 08:00] VITALS: BP 106/58; TEMP 98.2; O2SAT 94
[2025-10-09] MEDS: POTASSIUM CHLORIDE 10MEQ SR TABLET PO ONE (08:11)
[2025-10-09 08:12] VITALS: BP 106/58
[2025-10-09] MEDS: SPIRONOLACTONE 25 MG TAB PO SCH (08:13)
[2025-10-09] MEDS: MAG SULF 1GM/100ML (MAG RUN) 1 GM in IV 1 EA IV ONE (08:14)
[2025-10-09] MEDS: TORSEMIDE 50 MG PER 1/2 TAB PO SCH (08:29)
[2025-10-09] MEDS ORDERED: TORSEMIDE 100 MG TAB PO SCH (09:00)
[2025-10-09] MEDS ORDERED: ALDA25TA2 PO (10:59)
[2025-10-09] MEDS ORDERED: TORS100T PO (10:59)
[2025-10-09] MEDS ORDERED: MIDO5TA PO (10:59)
[2025-10-09] MEDS: FLUZONE HIGH DOSE (65+) 0.5 ML SYRINGE (25-26) IM.IMMUN ONE (11:19)
== END 2025-10-09 11:47 | disposition home health service (06) | DRG 291 ==
LOC: EDBD 11:50 → M ED 11:50 → M ED INP 14:29 → M MSPAV 17:26
PROVIDERS: ADMIT Student in an Organized Health Care Education/Training Program; ATTEND Internal Medicine
DX: I13.0 Hypertensive heart and chronic kidney disease with heart failure and stage 1 through stage 4 chronic kidney disease, or unspecified chronic kidney disease (principal); I50.33 Acute on chronic diastolic (congestive) heart failure; I31.39 Other pericardial effusion (noninflammatory); J98.11 Atelectasis; E87.1 Hypo-osmolality and hyponatremia; N18.4 Chronic kidney disease, stage 4 (severe); E78.5 Hyperlipidemia, unspecified; E11.51 Type 2 diabetes mellitus with diabetic peripheral angiopathy without gangrene; I48.91 Unspecified atrial fibrillation; E11.40 Type 2 diabetes mellitus with diabetic neuropathy, unspecified; E11.22 Type 2 diabetes mellitus with diabetic chronic kidney disease; D50.9 Iron deficiency anemia, unspecified; K40.90 Unilateral inguinal hernia, without obstruction or gangrene, not specified as recurrent; E83.42 Hypomagnesemia; I27.20 Pulmonary hypertension, unspecified; M54.50 Low back pain, unspecified; E87.6 Hypokalemia; Z95.820 Peripheral vascular angioplasty status with implants and grafts; Z79.01 Long term (current) use of anticoagulants; Z79.899 Other long term (current) drug therapy